=== PATIENT | male | born 1965 | race Caucasian/White ===

== ENCOUNTER 2016-08-23 10:06 | Emergency (ER) | payer OTHER ==
[2016-08-23 10:19] LABS: Glucose,Whole Blood 471 mg/dL (75-99)
[2016-08-23] MEDS ORDERED: SODIUM CHLORIDE 0.9% 1,000 ML IV STA (10:46)
[2016-08-23] MEDS ORDERED: INSULIN REGULAR 100 UNIT/ML VIAL IV ONE (10:46)
[2016-08-23] MEDS ORDERED: LABETALOL 5 MG/ML VIAL MDV IVP STA (10:47)
--- NOTE | 2016-08-23 10:55 | ED ---
General Adult HPI - General Chief complaint: Recheck/Abnormal Lab/Rx Stated complaint: Hyperglycemia Time Seen by Provider: 08/23/16 10:24 Source: patient, RN notes reviewed, old records reviewed Mode of arrival: ambulatory Limitations: no limitations - History of Present Illness Initial comments: This is a 51-year-old male ER for evaluation regarding elevated blood sugar. Patient admits to medical noncompliance states he has history of high blood pressure cholesterol and diabetes. Has not taken medication in quite some time. Patient admits alcohol abuse but also not had insurance not significantly physician. Patient denies symptoms, was told to come here for evaluation regarding another blood sugar, patient consented blood sugar was very elevated of the did check a before coming in. Again patient denies shortness of breath or chest pain or abdominal pain. Does have some increased urination and increased thirst - Related Data Previous Rx's Medication Instructions Recorded Lisinopril 20 mg PO DAILY #30 tablet 08/23/16 Metoprolol Tartrate [Lopressor] 50 mg PO BID #60 tab 08/23/16 metFORMIN HCL [Metformin HCl] 500 mg PO BID #60 tablet 08/23/16 Allergies Allergy/AdvReac Type Severity Reaction Status Date / Time amoxicillin Allergy Rash/Hives Verified 08/23/16 10:34 Review of Systems ROS Statement: Those systems with pertinent positive or pertinent negative responses have been documented in the HPI. ROS Other: All systems not noted in ROS Statement are negative. Past Medical History Past Medical History: Diabetes Mellitus, Hypertension History of Any Multi-Drug Resistant Organisms: None Reported Additional Past Surgical History / Comment(s): cataract surgery Past Psychological History: No Psychological Hx Reported, Anxiety, Depression Smoking Status: Never smoker Past Alcohol Use History: Abuse, Daily, Heavy Past Drug Use History: None Reported General Exam Limitations: no limitations General appearance: alert, in no apparent distress Head exam: Present: atraumatic, normocephalic, normal inspection Eye exam: Present: normal appearance, PERRL, EOMI. Absent: scleral icterus, conjunctival injection, periorbital swelling ENT exam: Present: normal exam, mucous membranes moist Neck exam: Present: normal inspection. Absent: tenderness, meningismus, lymphadenopathy Respiratory exam: Present: normal lung sounds bilaterally. Absent: respiratory distress, wheezes, rales, rhonchi, stridor Cardiovascular Exam: Present: regular rate, normal rhythm, normal heart sounds. Absent: systolic murmur, diastolic murmur, rubs, gallop, clicks GI/Abdominal exam: Present: soft, normal bowel sounds. Absent: distended, tenderness, guarding, rebound, rigid Extremities exam: Present: normal inspection, full ROM, normal capillary refill. Absent: tenderness, pedal edema, joint swelling, calf tenderness Back exam: Present: normal inspection Neurological exam: Present: alert, oriented X3, CN II-XII intact Psychiatric exam: Present: normal affect, normal mood Skin exam: Present: warm, dry, intact, normal color. Absent: rash Course Vital Signs 08/23/16 10:11 Temperature 99.2 F Pulse Rate 105 H Respiratory 20 Rate Blood Pressure 167/94 O2 Sat by Pulse 99 Oximetry - Reevaluation(s) Reevaluation #1: 08/23/16 10:54 Patient's remains asymptomatic Medical Decision Making - Medical Decision Making 51 mel[facility] ER with medical noncompliance history of alcohol abuse. Patient was in the air with elevated blood sugar. Patient's blood sugar and I will control, will start patient on outpatient medications regarding high blood pressure high cholesterol and diabetes. Patient will be encouraged to follow-up with family physician - Lab Data Lab Results 08/23/16 Range/Units 10:15 POC Glucose (mg/dL) 471 H (75-99) mg/dL POC Glu Load Mixer ID Veronica Hatch Disposition Clinical Impression: Medical non-compliance, Hyperglycemia, Hypertension, Alcohol abuse Disposition: ADMITTED IP TO THIS HOSP Condition: Undetermined Instructions: Abuse of Alcohol (ED), Hypertension (ED), Diabetic Hyperglycemia (ED) Prescriptions: Lisinopril 20 mg PO DAILY #30 tablet metFORMIN HCL [Metformin HCl] 500 mg PO BID #60 tablet Metoprolol Tartrate [Lopressor] 50 mg PO BID #60 tab Referrals: Arabella Owens MD [Primary Care Provider] - 1-2 days
[2016-08-23 11:01] LABS: Basophils % (A) 1 %; CH 33.2; CHCM 33.7; Eosinophils % (A) 0 %; HCT 47.8 % (39.0-53.0); HDW 2.75; HGB 15.3 gm/dL (13.0-17.5); Luc # (Auto) 0.17; Luc % (Auto) 3; Lymphocytes # (A) 1.4 k/uL (1.0-4.8); Lymphocytes % (A) 20 %; MCH 31.6 pg (25.0-35.0); MCV 98.8 fL (80.0-100.0); Mean Platelet Volume 7.1; Monocytes # (A) 0.5 k/uL (0-1.0); Monocytes % (A) 8 %; Neutrophils # (A) 4.8 k/uL (1.3-7.7); Neutrophils % (A) 69 %; RBC 4.83 m/uL (4.30-5.90); WBC 6.9 k/uL (3.8-10.6); WBC (Perox) 6.57
[2016-08-23 11:16] LABS: ALT 63 U/L (21-72); AST 111 U/L (17-59); Alkaline Phosphatase 182 U/L (38-126); Anion Gap 16 mmol/L; Blood Urea Nitrogen 8 mg/dL (9-20); Calcium 9.8 mg/dL (8.4-10.2); Carbon Dioxide 27 mmol/L (22-30); Chloride 92 mmol/L (98-107); Magnesium 1.8 mg/dL (1.6-2.3); Non-African American GFR(MDRD) >60 (>60 ml/min/1.73 sqM); Potassium 5.1 mmol/L (3.5-5.1); Sodium 135 mmol/L (137-145); Total Bilirubin 2.1 mg/dL (0.2-1.3); Total Protein 8.1 g/dL (6.3-8.2)
[2016-08-23 11:28] LABS: Glucose 491 mg/dL (74-99)
[2016-08-23 11:34] LABS: Glucose,Whole Blood 399 mg/dL (75-99)
[2016-08-23] MEDS ORDERED: INSULIN REGULAR 100 UNIT/ML VIAL SQ ONE (12:02)
[2016-08-23 13:20] VITALS: BP 193/91; PULSE 83; RESP 16; TEMP 98.5
[2016-08-24 05:47] LABS: Glucose,Whole Blood 304 mg/dL (75-99)
== END 2016-08-23 13:20 | disposition other institution (70) ==
LOC: EC 10:06
DX: E11.65 Type 2 diabetes mellitus with hyperglycemia (principal); E78.00 Pure hypercholesterolemia, unspecified; I10 Essential (primary) hypertension; F10.10 Alcohol abuse, uncomplicated; Z91.19 Patient's noncompliance with other medical treatment and regimen; Z88.0 Allergy status to penicillin
CPT/HCPCS: 36415; 80053; 83735; 84100; 85025; 96361; 96374; 99285

== ENCOUNTER 2016-11-20 19:13 | Emergency (ER) | payer OTHER ==
[2016-11-20] MEDS ORDERED: SODIUM CHLORIDE 0.9% 2,000 ML IV ONE (19:47)
[2016-11-20 19:51] LABS: Glucose,Whole Blood 354 mg/dL (75-99)
[2016-11-20 20:35] LABS: ALT 87 U/L (21-72); AST 176 U/L (17-59); Alkaline Phosphatase 137 U/L (38-126); Anion Gap 10 mmol/L; Blood Urea Nitrogen 13 mg/dL (9-20); Calcium 9.7 mg/dL (8.4-10.2); Carbon Dioxide 26 mmol/L (22-30); Chloride 97 mmol/L (98-107); Glucose 418 mg/dL (74-99); Magnesium 1.7 mg/dL (1.6-2.3); Non-African American GFR(MDRD) >60 (>60 ml/min/1.73 sqM); Potassium 4.3 mmol/L (3.5-5.1); Sodium 133 mmol/L (137-145); Total Bilirubin 0.9 mg/dL (0.2-1.3); Total Protein 7.9 g/dL (6.3-8.2)
--- NOTE | 2016-11-20 20:37 | XR ---
EXAMINATION TYPE: XR chest 2V DATE OF EXAM: 11/20/2016 COMPARISON: NONE HISTORY: Shortness of breath. TECHNIQUE: Frontal and lateral views of the chest are obtained. FINDINGS: There is no focal air space opacity, pleural effusion, or pneumothorax seen. The cardiac silhouette size is within normal limits. The osseous structures are intact. IMPRESSION: No acute cardiopulmonary process.
[2016-11-20 20:38] LABS: Basophils % (A) 0 %; CH 31.6; CHCM 35.4; Eosinophils # (A) 0.1 k/uL (0-0.7); Eosinophils % (A) 1 %; HCT 42.8 % (39.0-53.0); HDW 2.94; HGB 15.2 gm/dL (13.0-17.5); Luc % (Auto) 2; Lymphocytes # (A) 1.1 k/uL (1.0-4.8); Lymphocytes % (A) 23 %; MCH 31.8 pg (25.0-35.0); MCHC 35.5 g/dL (31.0-37.0); MCV 89.6 fL (80.0-100.0); Mean Platelet Volume 7.1; Monocytes # (A) 0.4 k/uL (0-1.0); Monocytes % (A) 9 %; Neutrophils # (A) 3.3 k/uL (1.3-7.7); Neutrophils % (A) 65 %; RBC 4.78 m/uL (4.30-5.90); RDW 13.5 % (11.5-15.5); WBC (Perox) 4.69
[2016-11-20] MEDS ORDERED: INSULIN REGULAR 100 UNIT/ML VIAL IV ONE (20:38)
--- NOTE | 2016-11-20 20:45 | ED ---
General Adult HPI - General Chief complaint: Recheck/Abnormal Lab/Rx Stated complaint: high blood sugar Time Seen by Provider: 11/20/16 19:35 Source: patient, RN notes reviewed Mode of arrival: ambulatory Limitations: no limitations - History of Present Illness Initial comments: This a 51-year-old male presents emergency Department chief complaint hyperglycemia. Patient states that his blood sugar has been in the 5 to 600s all week. Patient states that he stopped his medications last week because he was having diarrhea from his metformin. Patient states that he started checking his blood sugar and noticed his blood sugar was elevated again. Patient follow-up was primary care physician who increase his Amaryl dose Topamax 3 times a day. Patient states that his blood sugar was still elevated on this. Patient states that he fell off today states he felt fatigued and has had increased thirst and urinating more often. Patient denies any chest pain or shortness of breath. Patient has a fever, chills. He states that the diarrhea has stopped from his metformin. - Related Data Home Medications Medication Instructions Recorded Confirmed Albuterol Inhaler [Ventolin Hfa 1 - 2 puff INHALATION RT-Q6H PRN 11/20/16 Inhaler] Glimepiride [Amaryl] 4 mg PO DAILY 11/20/16 11/20/16 Lisinopril 20 mg PO HS 11/20/16 11/20/16 Previous Rx's Medication Instructions Recorded Metoprolol Tartrate [Lopressor] 50 mg PO BID #60 tab 08/23/16 Allergies Allergy/AdvReac Type Severity Reaction Status Date / Time amoxicillin Allergy Rash/Hives Verified 11/20/16 20:01 Review of Systems ROS Statement: Those systems with pertinent positive or pertinent negative responses have been documented in the HPI. ROS Other: All systems not noted in ROS Statement are negative. Past Medical History Past Medical History: Diabetes Mellitus, Hypertension History of Any Multi-Drug Resistant Organisms: None Reported Additional Past Surgical History / Comment(s): cataract surgery Past Psychological History: Anxiety, Depression Smoking Status: Never smoker Past Alcohol Use History: Abuse, Daily, Heavy Past Drug Use History: None Reported General Exam Limitations: no limitations General appearance: alert, in no apparent distress Head exam: Present: atraumatic, normocephalic, normal inspection Eye exam: Present: normal appearance, PERRL, EOMI. Absent: scleral icterus, conjunctival injection, periorbital swelling ENT exam: Present: normal oropharynx, mucous membranes moist, TM's normal bilaterally, normal external ear exam Neck exam: Present: normal inspection, full ROM. Absent: tenderness, meningismus, lymphadenopathy Respiratory exam: Present: normal lung sounds bilaterally. Absent: respiratory distress, wheezes, rales, rhonchi, stridor Cardiovascular Exam: Present: normal rhythm, tachycardia, normal heart sounds. Absent: systolic murmur, diastolic murmur, rubs, gallop, clicks GI/Abdominal exam: Present: soft, normal bowel sounds. Absent: distended, tenderness, guarding, rebound, rigid Neurological exam: Present: alert, oriented X3, CN II-XII intact Skin exam: Present: warm, dry, intact, normal color. Absent: rash Course Vital Signs 11/20/16 11/20/16 11/20/16 19:27 19:40 20:14 Temperature 98.6 F 98.6 F 98.6 F Pulse Rate 111 H 105 H 98 Respiratory 20 18 18 Rate Blood Pressure 147/83 147/77 155/81 O2 Sat by Pulse 99 94 L 97 Oximetry Medical Decision Making - Medical Decision Making 51-year-old male presented for hyperglycemia. Patient's blood sugar was elevated but he is not in DKA. Patient's is an alcoholic and his LFTs are mildly elevated. Patient is advised to stop drinking alcohol. Patient will follow-up was primary care physician for adjustment of his medication. Patient was hydrated and given insulin here in emergency department. - Lab Data Result diagrams: 11/20/16 20:10 11/20/16 20:10 Lab Results 11/20/16 11/20/16 11/20/16 Range/Units 19:47 20:10 20:10 WBC 5.0 (3.8-10.6) k/uL RBC 4.78 (4.30-5.90) m/uL Hgb 15.2 (13.0-17.5) gm/dL Hct 42.8 (39.0-53.0) % MCV 89.6 (80.0-100.0) fL MCH 31.8 (25.0-35.0) pg MCHC 35.5 (31.0-37.0) g/dL RDW 13.5 (11.5-15.5) % Plt Count 138 L (150-450) k/uL Neutrophils % 65 % Lymphocytes % 23 % Monocytes % 9 % Eosinophils % 1 % Basophils % 0 % Neutrophils # 3.3 (1.3-7.7) k/uL Lymphocytes # 1.1 (1.0-4.8) k/uL Monocytes # 0.4 (0-1.0) k/uL Eosinophils # 0.1 (0-0.7) k/uL Basophils # 0.0 (0-0.2) k/uL Sodium 133 L (137-145) mmol/L Potassium 4.3 (3.5-5.1) mmol/L Chloride 97 L (98-107) mmol/L Carbon Dioxide 26 (22-30) mmol/L Anion Gap 10 mmol/L BUN 13 (9-20) mg/dL Creatinine 0.90 (0.66-1.25) mg/dL Est GFR (MDRD) Af Amer >60 (>60 ml/min/1.73 sqM) Est GFR (MDRD) Non-Af >60 (>60 ml/min/1.73 sqM) Glucose 418 H (74-99) mg/dL POC Glucose (mg/dL) 354 H (75-99) mg/dL POC Glu Carpet Inspector Finished ID Franco Dumont Calcium 9.7 (8.4-10.2) mg/dL Magnesium 1.7 (1.6-2.3) mg/dL Total Bilirubin 0.9 (0.2-1.3) mg/dL AST 176 H (17-59) U/L ALT 87 H (21-72) U/L Alkaline Phosphatase 137 H (38-126) U/L Total Protein 7.9 (6.3-8.2) g/dL Albumin 4.2 (3.5-5.0) g/dL Acetone, Qual Negative (Negative) Disposition Clinical Impression: Hyperglycemia Disposition: HOME SELF-CARE Condition: Stable Instructions: Diabetic Hyperglycemia (ED) Additional Instructions: Please follow up with her PCP for does not diabetic medications.Please return to the Emergency Department if symptoms worsen or any other concerns. Referrals: Arabella Owens MD [Primary Care Provider] - 1-2 days Time of Disposition: 21:25
[2016-11-20 21:25] LABS: Glucose,Whole Blood 399 mg/dL (75-99)
[2016-11-20 22:04] VITALS: BP 125/64; PULSE 68; RESP 16; TEMP 97.8
[2016-11-20 22:07] LABS: Glucose,Whole Blood 280 mg/dL (75-99)
== END 2016-11-20 22:03 | disposition home or self-care (01) ==
LOC: EC 19:13
DX: E11.65 Type 2 diabetes mellitus with hyperglycemia (principal); I10 Essential (primary) hypertension; Z88.0 Allergy status to penicillin; Z79.84 Long term (current) use of oral hypoglycemic drugs; Z79.899 Other long term (current) drug therapy
CPT/HCPCS: 36415; 71020; 80053; 82009; 83735; 85025; 96360; 96361; 99285

== ENCOUNTER → 2017-08-07 | Outpatient (CLI) | payer OTHER ==
--- NOTE | 2017-08-07 15:55 | XR ---
EXAMINATION TYPE: XR chest 2V DATE OF EXAM: 08/07/2017 COMPARISON: 11/20/2016 HISTORY: Cough TECHNIQUE: Frontal and lateral views of the chest are obtained. FINDINGS: There is no focal air space opacity, pleural effusion, or pneumothorax seen. The cardiac silhouette size is within normal limits. The osseous structures are intact. Is multilevel moderate degenerative changes of the thoracic spine and acromio clavicular joints are noted. Right midlung pat karime opacity is similar to 11/20/2016 and likely represents chronic atelectasis and/or scarring. IMPRESSION: No acute cardiopulmonary process.
== END | disposition home or self-care (01) ==
LOC: RADXRMAIN 15:26
PROVIDERS: ATTEND Internal Medicine
DX: R05 Cough (principal); I10 Essential (primary) hypertension
CPT/HCPCS: 71046

== ENCOUNTER 2017-08-14 16:26 | Emergency (ER) | payer OTHER ==
[2017-08-14 16:34] VITALS: RESP 18
[2017-08-14 16:57] LABS: Glucose,Whole Blood 494 mg/dL (75-99)
[2017-08-14] MEDS ORDERED: SODIUM CHLORIDE 0.9% 1,000 ML with MVI, ADULT NO.4 WITH VIT K 10 ML, THIAMINE 100 MG, F... IV ONE ×4 (16:57)
--- NOTE | 2017-08-14 17:03 | ED ---
General Adult HPI - General Chief complaint: Recheck/Abnormal Lab/Rx Stated complaint: High sugar Time Seen by Provider: 08/14/17 16:30 Source: patient, RN notes reviewed Mode of arrival: wheelchair Limitations: no limitations - History of Present Illness Initial comments: Is a 52-year-old male who presents to the emergency department complaining of not feeling well. Patient is very nonspecific. Patient noted her sugar to be elevated so he came to the emergency department. Patient states overall he feels weak. Patient also states he is alcoholic and drinks daily. Patient states he has had a few beers today. Mother went to pick him up for an appointment and he wasn't ready and he seemed as though he was significantly drunk so mom wanted to come to the emergency department. Patient states he is feeling hopeless but not suicidal. Patient states she's never thought of suicide and has never had any psychiatric history. Patient states he's had no chest pain no difficulty breathing or shortness of breath. Patient denies any cough. Patient denies headache patient denies numbness weakness. Patient denies any lightheadedness or dizziness. Patient denies abdominal pain patient denies nausea vomiting diarrhea. Patient's main complaint is he just doesn't feel well and overall feels weak. Patient states she doesn't eat much. He does drink daily - Related Data Home Medications Medication Instructions Recorded Confirmed Albuterol Inhaler [Ventolin Hfa 1 - 2 puff INHALATION RT-Q6H PRN 11/20/16 Inhaler] Omeprazole [PriLOSEC] 20 mg PO BID 08/14/17 08/14/17 Allergies Allergy/AdvReac Type Severity Reaction Status Date / Time amoxicillin Allergy Rash/Hives Verified 08/14/17 16:51 Review of Systems ROS Statement: Those systems with pertinent positive or pertinent negative responses have been documented in the HPI. ROS Other: All systems not noted in ROS Statement are negative. Past Medical History Past Medical History: Diabetes Mellitus, Hypertension Additional Past Medical History / Comment(s): etoh abuse History of Any Multi-Drug Resistant Organisms: None Reported Past Surgical History: Hernia Repair Additional Past Surgical History / Comment(s): cataract surgery Past Psychological History: Anxiety, Depression Smoking Status: Never smoker Past Alcohol Use History: Abuse, Daily, Heavy Past Drug Use History: None Reported General Exam - General Exam Comments Initial Comments: GENERAL: Patient is well-developed and well-nourished. Patient is nontoxic and well- hydrated and is in mild distress. ENT: Neck is soft and supple. No significant lymphadenopathy is noted. Oropharynx is clear. Moist mucous membranes. Neck has full range of motion without eliciting any pain. EYES: The sclera were anicteric and conjunctiva were pink and moist. Extraocular movements were intact and pupils were equal round and reactive to light. Eyelids were unremarkable. PULMONARY: Unlabored respirations. Good breath sounds bilaterally. No audible rales rhonchi or wheezing was noted. CARDIOVASCULAR: There is a regular rate and rhythm without any murmurs gallops or rubs. ABDOMEN: Soft and nontender with normal bowel sounds. No palpable organomegaly was noted. There is no palpable pulsatile mass. SKIN: Skin is clear with no lesions or rashes and otherwise unremarkable. NEUROLOGIC: Patient is alert and oriented x3. Cranial nerves II through XII are grossly intact. Motor and sensory are also intact. Normal speech, volume and content. Symmetrical smile. MUSCULOSKELETAL: Normal extremities with adequate strength and full range of motion. No lower extremity swelling or edema. No calf tenderness. LYMPHATICS: No significant lymphadenopathy is noted PSYCHIATRIC: Normal psychiatric evaluation. Normal interpersonal interactions appears functionally intact in deals appropriately with others. No signs of depression. No signs of anxiety. Limitations: no limitations Course Vital Signs 08/14/17 08/14/17 08/14/17 16:28 18:55 19:02 Temperature 97.8 F Pulse Rate 99 86 Respiratory 18 18 Rate Blood Pressure 197/106 201/92 195/94 O2 Sat by Pulse 100 100 Oximetry Medical Decision Making - Medical Decision Making EKG shows a normal sinus rhythm at 94 bpm RI interval 160 QRS is 88 QT interval 394 QTC is 492. There is no ST segment elevation Chest x-ray shows no acute normalities. Patient was given Humalog and bolus of fluid. Patient stated he was not to stay overnight even though I recommended. Patient states he is willing to sign out AMA. Patient had a sugar in the high 300s his blood pressure still 180 systolic but he refused to stay and signed out AMA - Lab Data Result diagrams: 08/14/17 17:02 08/14/17 17:02 Lab Results 08/14/17 08/14/17 08/14/17 Range/Units 16:45 17:02 17:02 WBC (3.8-10.6) k/uL RBC (4.30-5.90) m/uL Hgb (13.0-17.5) gm/dL Hct (39.0-53.0) % MCV (80.0-100.0) fL MCH (25.0-35.0) pg MCHC (31.0-37.0) g/dL RDW (11.5-15.5) % Plt Count (150-450) k/uL Neutrophils % % Lymphocytes % % Monocytes % % Eosinophils % % Basophils % % Neutrophils # (1.3-7.7) k/uL Lymphocytes # (1.0-4.8) k/uL Monocytes # (0-1.0) k/uL Eosinophils # (0-0.7) k/uL Basophils # (0-0.2) k/uL Sodium 135 L (137-145) mmol/L Potassium 3.9 (3.5-5.1) mmol/L Chloride 89 L (98-107) mmol/L Carbon Dioxide 26 (22-30) mmol/L Anion Gap 20 mmol/L BUN 7 L (9-20) mg/dL Creatinine 0.75 (0.66-1.25) mg/dL Est GFR (CKD-EPI)AfAm >90 (>60 ml/min/1.73 sqM) Est GFR (CKD-EPI)NonAf >90 (>60 ml/min/1.73 sqM) Glucose 590 H* (74-99) mg/dL POC Glucose (mg/dL) 494 H (75-99) mg/dL POC Glu Physical Medicine Specialist ID Dallas Molina Calcium 9.5 (8.4-10.2) mg/dL Magnesium 1.7 (1.6-2.3) mg/dL Total Bilirubin 0.6 (0.2-1.3) mg/dL AST 43 (17-59) U/L ALT 39 (21-72) U/L Alkaline Phosphatase 115 (38-126) U/L Ammonia <9 (<30) umol/L Troponin I (0.000-0.034) ng/mL Total Protein 7.7 (6.3-8.2) g/dL Albumin 4.5 (3.5-5.0) g/dL Acetone, Qual Negative (Negative) 08/14/17 08/14/17 08/14/17 Range/Units 17:02 17:02 18:40 WBC 5.1 (3.8-10.6) k/uL RBC 5.31 (4.30-5.90) m/uL Hgb 15.9 (13.0-17.5) gm/dL Hct 46.6 (39.0-53.0) % MCV 87.8 (80.0-100.0) fL MCH 30.0 (25.0-35.0) pg MCHC 34.1 (31.0-37.0) g/dL RDW 13.7 (11.5-15.5) % Plt Count 111 L (150-450) k/uL Neutrophils % 58 % Lymphocytes % 32 % Monocytes % 6 % Eosinophils % 1 % Basophils % 1 % Neutrophils # 3.0 (1.3-7.7) k/uL Lymphocytes # 1.6 (1.0-4.8) k/uL Monocytes # 0.3 (0-1.0) k/uL Eosinophils # 0.1 (0-0.7) k/uL Basophils # 0.0 (0-0.2) k/uL Sodium (137-145) mmol/L Potassium (3.5-5.1) mmol/L Chloride (98-107) mmol/L Carbon Dioxide (22-30) mmol/L Anion Gap mmol/L BUN (9-20) mg/dL Creatinine (0.66-1.25) mg/dL Est GFR (CKD-EPI)AfAm (>60 ml/min/1.73 sqM) Est GFR (CKD-EPI)NonAf (>60 ml/min/1.73 sqM) Glucose (74-99) mg/dL POC Glucose (mg/dL) 417 H (75-99) mg/dL POC Glu Physical Medicine Specialist ID Rubén Tobin Calcium (8.4-10.2) mg/dL Magnesium (1.6-2.3) mg/dL Total Bilirubin (0.2-1.3) mg/dL AST (17-59) U/L ALT (21-72) U/L Alkaline Phosphatase (38-126) U/L Ammonia (<30) umol/L Troponin I 0.017 (0.000-0.034) ng/mL Total Protein (6.3-8.2) g/dL Albumin (3.5-5.0) g/dL Acetone, Qual (Negative) Disposition Clinical Impression: Hyperglycemia, Alcohol abuse, Hypertension Disposition: Left Against Medical Advice Referrals: Arabella Owens MD [Primary Care Provider] - 1-2 days Time of Disposition: 19:27
[2017-08-14 17:26] LABS: Basophils % (A) 1 %; Eosinophils # (A) 0.1 k/uL (0-0.7); Eosinophils % (A) 1 %; HCT 46.6 % (39.0-53.0); HGB 15.9 gm/dL (13.0-17.5); Lymphocytes # (A) 1.6 k/uL (1.0-4.8); Lymphocytes % (A) 32 %; MCHC 34.1 g/dL (31.0-37.0); MCV 87.8 fL (80.0-100.0); Mean Platelet Volume 7.3; Monocytes # (A) 0.3 k/uL (0-1.0); Monocytes % (A) 6 %; Neutrophils % (A) 58 %; Platelet Count 111 k/uL (150-450); RBC 5.31 m/uL (4.30-5.90); RDW 13.7 % (11.5-15.5); WBC 5.1 k/uL (3.8-10.6)
[2017-08-14 17:46] LABS: ALT 39 U/L (21-72); AST 43 U/L (17-59); Albumin 4.5 g/dL (3.5-5.0); Alkaline Phosphatase 115 U/L (38-126); Anion Gap 20 mmol/L; Blood Urea Nitrogen 7 mg/dL (9-20); Calcium 9.5 mg/dL (8.4-10.2); Carbon Dioxide 26 mmol/L (22-30); Chloride 89 mmol/L (98-107); Magnesium 1.7 mg/dL (1.6-2.3); Potassium 3.9 mmol/L (3.5-5.1); Sodium 135 mmol/L (137-145); Total Bilirubin 0.6 mg/dL (0.2-1.3); Total Protein 7.7 g/dL (6.3-8.2)
[2017-08-14 17:48] LABS: Glucose 590 mg/dL (74-99)
--- NOTE | 2017-08-14 17:48 | XR ---
EXAMINATION TYPE: XR chest 2V DATE OF EXAM: 08/14/2017 COMPARISON: 08/07/2017 HISTORY: Weakness TECHNIQUE: Frontal and lateral views of the chest are obtained. FINDINGS: Heart and mediastinum are normal. Lungs are clear. Diaphragm is normal. Bony thorax appear s normal. IMPRESSION: Normal chest. No change.
[2017-08-14] MEDS ORDERED: INSULIN REGULAR 100 UNIT in SODIUM CHLORIDE 0.9% 100 ML IV ONE (17:49)
[2017-08-14] MEDS ORDERED: INSULIN REGULAR 100 UNIT/ML VIAL IV ONE (17:49)
[2017-08-14] MEDS ORDERED: INSULIN ASPART 100 UNIT/ML 1 ML 10 ML VIAL SQ ONE (17:51)
[2017-08-14] MEDS ORDERED: SODIUM CHLORIDE 0.9% 1,000 ML IV ONE (17:51)
[2017-08-14 18:43] LABS: Glucose,Whole Blood 417 mg/dL (75-99)
[2017-08-14] MEDS ORDERED: hydrALAZINE HCL 20 MG/ML 1 ML VIAL IVP STA (18:57)
[2017-08-14 19:28] LABS: Glucose,Whole Blood 362 mg/dL (75-99)
[2017-08-14 19:32] VITALS: BP 180/86; PULSE 799; TEMP 98
== END 2017-08-14 19:32 | disposition left against medical advice (07) ==
LOC: EC 16:26
DX: E11.65 Type 2 diabetes mellitus with hyperglycemia (principal); F10.10 Alcohol abuse, uncomplicated; I10 Essential (primary) hypertension; Z79.899 Other long term (current) drug therapy; Z88.0 Allergy status to penicillin
CPT/HCPCS: 36415; 93005; 80053; 82140; 82009; 83735; 84484; 85025; 71046; 99285; 96365; 96366; 96375; J0360; J3411

== ENCOUNTER 2017-12-08 07:02 | Observation (INO) | payer OTHER ==
[2017-12-08] MEDS ORDERED: IPRATROPIUM-ALBUTEROL 3 ML NEB INHALATION STA (07:16)
[2017-12-08] MEDS ORDERED: SODIUM CHLORIDE 0.9% 1,000 ML IV STA ×2 (07:16→09:51)
--- NOTE | 2017-12-08 07:19 | ED ---
SOB HPI - General Chief Complaint: Shortness of Breath Stated Complaint: ISAI Time Seen by Provider: 12/08/17 07:02 Source: patient, EMS Mode of arrival: EMS Limitations: no limitations - History of Present Illness Initial Comments: Male with a history of recently diagnosed lung mass in the right upper lobe also COPD/emphysema also has a chronic alcoholic with his last beer being at about 4 AM who states he had hemoptysis about 1 hour prior to arrival. He states he had a lot of it and she came out of his nose. He denies any overt nosebleed. He denies any fevers chills nausea vomiting sweats he has had shortness of breath. Some mild anterior chest wall pain from the cough. No abdominal pain nausea vomiting or diarrhea. MD Complaint: shortness of breath, cough - Related Data Home Medications Medication Instructions Recorded Confirmed Albuterol Inhaler [Ventolin Hfa 1 - 2 puff INHALATION RT-Q6H PRN 11/20/16 Inhaler] Acetaminophen [Tylenol] 500 mg PO Q4-6H PRN 12/08/17 12/08/17 Carboxymethylcellulose Sodium 1 drop BOTH EYES DAILY 12/08/17 12/08/17 [Refresh Tears] Insulin Glargine,Hum.rec.anlog 35 unit SQ DAILY 12/08/17 12/08/17 [Lantus Solostar] Ipratropium [place] [Atrovent Hfa] 2 puff INHALATION RT-QID 12/08/17 12/08/17 Lisinopril [Prinivil] 5 mg PO HS 12/08/17 12/08/17 Melatonin 10 mg PO HS 12/08/17 12/08/17 Pioglitazone HCl [Actos] 30 mg PO DAILY 12/08/17 12/08/17 Allergies Allergy/AdvReac Type Severity Reaction Status Date / Time amoxicillin Allergy Rash/Hives Verified 12/08/17 08:36 Review of Systems ROS Statement: Those systems with pertinent positive or pertinent negative responses have been documented in the HPI. ROS Other: All systems not noted in ROS Statement are negative. Past Medical History Past Medical History: Cancer, Diabetes Mellitus, Hypertension Additional Past Medical History / Comment(s): etoh abuse, right sided lung cancer History of Any Multi-Drug Resistant Organisms: None Reported Past Surgical History: Hernia Repair Additional Past Surgical History / Comment(s): cataract surgery Past Psychological History: Anxiety, Depression Smoking Status: Never smoker Past Alcohol Use History: Abuse, Daily, Heavy Past Drug Use History: None Reported General Exam - General Exam Comments Initial Comments: This is a well-developed well-nourished awake alert oriented 3 male Limitations: no limitations General appearance: alert, in no apparent distress Head exam: Present: atraumatic, normocephalic, normal inspection Eye exam: Present: normal appearance, PERRL, EOMI. Absent: scleral icterus, conjunctival injection, periorbital swelling ENT exam: Present: mucous membranes moist, other (Dry blood noticed in the naris at this time the posterior pharynx is clear) Neck exam: Present: normal inspection. Absent: tenderness, meningismus, lymphadenopathy Respiratory exam: Present: normal lung sounds bilaterally, chest wall tenderness (Mild tenderness to the anterior chest wall over the costal sternal margins no step-off or crepitation). Absent: respiratory distress, wheezes, rales, rhonchi, stridor Cardiovascular Exam: Present: normal rhythm, tachycardia, normal heart sounds. Absent: systolic murmur, diastolic murmur, rubs, gallop, clicks GI/Abdominal exam: Present: soft, normal bowel sounds. Absent: distended, tenderness, guarding, rebound, rigid Extremities exam: Present: normal inspection, full ROM, normal capillary refill. Absent: tenderness, pedal edema, joint swelling, calf tenderness Back exam: Present: normal inspection Neurological exam: Present: alert, oriented X3, CN II-XII intact Psychiatric exam: Present: normal affect, normal mood Skin exam: Present: warm, dry, intact, normal color. Absent: rash Course Vital Signs 12/08/17 12/08/17 12/08/17 07:03 07:12 07:37 Temperature 98.2 F Pulse Rate 108 H 93 Respiratory 16 Rate Blood Pressure 198/100 O2 Sat by Pulse 95 97 Oximetry 12/08/17 12/08/17 07:47 09:19 Temperature Pulse Rate 94 98 Respiratory 18 Rate Blood Pressure 165/84 O2 Sat by Pulse 100 Oximetry - Reevaluation(s) Reevaluation #1: 12/08/17 09:41 I did reevaluate the patient he states is breathing better he still has markedly diminished breath sounds in the left base however. Reevaluation #2: 12/08/17 09:41 I did discuss the case with Dr. Flores. Patient will be admitted noncontrast CT the chest will be done IV steroids continued updrafts. Reevaluation #3: 12/08/17 09:56 I did discuss the patient's consumption of alcohol does not believe he will go through withdrawals and does not at this time require any treatment for withdrawals. Medical Decision Making - Lab Data Result diagrams: 12/08/17 07:12 12/08/17 07:12 Lab Results 12/08/17 12/08/17 12/08/17 Range/Units 07:12 07:12 07:12 WBC 3.3 L (3.8-10.6) k/uL RBC 4.37 (4.30-5.90) m/uL Hgb 13.2 (13.0-17.5) gm/dL Hct 40.0 (39.0-53.0) % MCV 91.5 (80.0-100.0) fL MCH 30.1 (25.0-35.0) pg MCHC 32.9 (31.0-37.0) g/dL RDW 15.8 H (11.5-15.5) % Plt Count 131 L (150-450) k/uL Neutrophils % 61 % Lymphocytes % 25 % Monocytes % 7 % Eosinophils % 4 % Basophils % 1 % Neutrophils # 2.0 (1.3-7.7) k/uL Lymphocytes # 0.8 L (1.0-4.8) k/uL Monocytes # 0.2 (0-1.0) k/uL Eosinophils # 0.1 (0-0.7) k/uL Basophils # 0.0 (0-0.2) k/uL PT (9.0-12.0) sec INR (<1.2) APTT (22.0-30.0) sec Sodium 140 (137-145) mmol/L Potassium 3.4 L (3.5-5.1) mmol/L Chloride 102 (98-107) mmol/L Carbon Dioxide 24 (22-30) mmol/L Anion Gap 14 mmol/L BUN 7 L (9-20) mg/dL Creatinine 0.60 L (0.66-1.25) mg/dL Est GFR (CKD-EPI)AfAm >90 (>60 ml/min/1.73 sqM) Est GFR (CKD-EPI)NonAf >90 (>60 ml/min/1.73 sqM) Glucose 176 H (74-99) mg/dL Calcium 9.5 (8.4-10.2) mg/dL Magnesium 1.3 L (1.6-2.3) mg/dL Total Bilirubin 0.5 (0.2-1.3) mg/dL AST 44 (17-59) U/L ALT 19 L (21-72) U/L Alkaline Phosphatase 101 (38-126) U/L Total Creatine Kinase 87 (55-170) U/L CK-MB (CK-2) 3.6 H (0.0-2.4) ng/mL CK-MB (CK-2) Rel Index 4.1 Troponin I 0.019 (0.000-0.034) ng/mL NT-Pro-B Natriuret Pep pg/mL Total Protein 7.7 (6.3-8.2) g/dL Albumin 3.9 (3.5-5.0) g/dL Serum Alcohol 27 mg/dL 12/08/17 12/08/17 Range/Units 07:12 07:12 WBC (3.8-10.6) k/uL RBC (4.30-5.90) m/uL Hgb (13.0-17.5) gm/dL Hct (39.0-53.0) % MCV (80.0-100.0) fL MCH (25.0-35.0) pg MCHC (31.0-37.0) g/dL RDW (11.5-15.5) % Plt Count (150-450) k/uL Neutrophils % % Lymphocytes % % Monocytes % % Eosinophils % % Basophils % % Neutrophils # (1.3-7.7) k/uL Lymphocytes # (1.0-4.8) k/uL Monocytes # (0-1.0) k/uL Eosinophils # (0-0.7) k/uL Basophils # (0-0.2) k/uL PT 10.5 (9.0-12.0) sec INR 1.1 (<1.2) APTT 23.5 (22.0-30.0) sec Sodium (137-145) mmol/L Potassium (3.5-5.1) mmol/L Chloride (98-107) mmol/L Carbon Dioxide (22-30) mmol/L Anion Gap mmol/L BUN (9-20) mg/dL Creatinine (0.66-1.25) mg/dL Est GFR (CKD-EPI)AfAm (>60 ml/min/1.73 sqM) Est GFR (CKD-EPI)NonAf (>60 ml/min/1.73 sqM) Glucose (74-99) mg/dL Calcium (8.4-10.2) mg/dL Magnesium (1.6-2.3) mg/dL Total Bilirubin (0.2-1.3) mg/dL AST (17-59) U/L ALT (21-72) U/L Alkaline Phosphatase (38-126) U/L Total Creatine Kinase (55-170) U/L CK-MB (CK-2) (0.0-2.4) ng/mL CK-MB (CK-2) Rel Index Troponin I (0.000-0.034) ng/mL NT-Pro-B Natriuret Pep 700 pg/mL Total Protein (6.3-8.2) g/dL Albumin (3.5-5.0) g/dL Serum Alcohol mg/dL Critical Care Time Critical Care Time: Yes Critical Care Time: 31 minutes of critical care time which includes initial monitoring the EMS run and discussed with paramedics history physical labs x-rays reevaluation patient responsive therapy discuss with the patient family and several occasions discussion with Dr. Flores discussion with the admitting physician admission orders and documentation of the above Disposition Clinical Impression: Acute exacerbation of chronic obstructive airways disease, Hemoptysis, Lung mass, Hypomagnesemia, Hypokalemia Disposition: ADMITTED IP TO THIS [facility] Condition: Serious Referrals: Arabella Owens MD [Primary Care Provider] - 1-2 days
[2017-12-08 07:39] LABS: Basophils % (A) 1 %; Eosinophils # (A) 0.1 k/uL (0-0.7); Eosinophils % (A) 4 %; HGB 13.2 gm/dL (13.0-17.5); Lymphocytes # (A) 0.8 k/uL (1.0-4.8); Lymphocytes % (A) 25 %; MCH 30.1 pg (25.0-35.0); MCHC 32.9 g/dL (31.0-37.0); MCV 91.5 fL (80.0-100.0); Mean Platelet Volume 7.2; Monocytes # (A) 0.2 k/uL (0-1.0); Monocytes % (A) 7 %; Neutrophils % (A) 61 %; Platelet Count 131 k/uL (150-450); RBC 4.37 m/uL (4.30-5.90); RDW 15.8 % (11.5-15.5); WBC 3.3 k/uL (3.8-10.6)
[2017-12-08 07:50] LABS: ALT 19 U/L (21-72); AST 44 U/L (17-59); Albumin 3.9 g/dL (3.5-5.0); Alcohol 27 mg/dL; Alkaline Phosphatase 101 U/L (38-126); Anion Gap 14 mmol/L; Blood Urea Nitrogen 7 mg/dL (9-20); Calcium 9.5 mg/dL (8.4-10.2); Carbon Dioxide 24 mmol/L (22-30); Chloride 102 mmol/L (98-107); Glucose 176 mg/dL (74-99); Magnesium 1.3 mg/dL (1.6-2.3); Potassium 3.4 mmol/L (3.5-5.1); Sodium 140 mmol/L (137-145); Total Bilirubin 0.5 mg/dL (0.2-1.3); Total Protein 7.7 g/dL (6.3-8.2)
[2017-12-08 07:51] LABS: INR 1.1 (<1.2); Partial Thromboplastin Time 23.5 sec (22.0-30.0); Prothrombin Time 10.5 sec (9.0-12.0)
[2017-12-08 08:17] LABS: Creatine Kinase MB 3.6 ng/mL (0.0-2.4); Troponin I 0.019 ng/mL (0.000-0.034)
--- NOTE | 2017-12-08 08:30 | XR ---
EXAMINATION TYPE: XR chest 2V DATE OF EXAM: 12/08/2017 COMPARISON: 11/20/2016 and 08/14/2017 HISTORY: Known lung cancer. Hemoptysis. TECHNIQUE: Frontal and lateral views of the chest are obtained. FINDINGS: Again there is a right midlung patchy opacity similar dating back to exams of 11/20/2016 e favored to represent chronic atelectasis and/or scarring. New opacity is seen within the lingula. Thi s could represent the patient's primary lung carcinoma or new developing pneumonia. A component of at electasis is also presumed as there is elevation of the left hemidiaphragm. The cardiac silhouette si ze is within normal limits. The osseous structures are intact. IMPRESSION: 1. New lingular opacity that may represent pneumonia or the patient's primary lung carcinoma. Compone nt of atelectasis is seen as there is secondary left hemithorax volume loss. 2. Stable right midlung opacity dating back to 2017 presumably chronic atelectasis and/or scarring.
[2017-12-08] MEDS ORDERED: MAGNESIUM SULFATE-D5W PMX 1 GM in DEXTROSE/WATER 1 100ML.BAG IVPB ONE (08:42)
[2017-12-08] MEDS ORDERED: methylPREDNISolone SOD SUCCI 125 MG/2 ML VIAL IV STA (09:42)
[2017-12-08] MEDS ORDERED: ACETAMINOPHEN TAB 500 MG TAB PO PRN ×2 (09:51→10:07)
[2017-12-08] MEDS: SODIUM CHLORIDE 0.9% 1,000 ML IV SCH (09:54)
[2017-12-08] MEDS ORDERED: PNEUMOCOCCAL VACC-PNEUMOVAX 23 25 MCG/0.5 ML VIAL IM ONE (11:16)
[2017-12-08] MEDS ORDERED: INFLUENZA VACCINE (6 MOS+) 60 MCG/0.5 ML SYRINGE IM ONE (11:17)
[2017-12-08 11:36] LABS: Glucose,Whole Blood 178 mg/dL (75-99)
[2017-12-08] MEDS ORDERED: TEMAZEPAM 15 MG CAP PO PRN (11:48)
[2017-12-08] MEDS ORDERED: ALPRAZolam 0.25 MG TAB PO PRN (11:48)
[2017-12-08] MEDS ORDERED: LORazepam 0.5 MG TAB PO PRN (11:48)
[2017-12-08] MEDS: IPRATROPIUM-ALBUTEROL 3 ML NEB INHALATION SCH ×4 (12:21→23:59)
--- NOTE | 2017-12-08 12:35 | CONS ---
CONSULTATION DATE OF SERVICE: 12/08/2017 HISTORY OF PRESENT ILLNESS: Patient is a 52-year-old male with history of alpha-1 antitrypsin deficiency and recently found to have a lung mass in the right upper lobe which is in the workup stage. Patient is scheduled for bronchoscopy on Monday. Last night, patient states that he drank approximately four 16 ounce beers from the time of 6:30 pm to 11 pm, then he went to bed. He got up about 4:30 am and opened up another beer, had a few drinks and said this is too early and said he was going to go back to bed. When he did lay back down, he started coughing. Continued to cough without being able to get it under control, got up to go to the bathroom and looked down on the floor and did see a drop of blood. Again, continued coughing and started coughing up dark red blood clots with a mixture of bright red blood. At that time, EMS was called and patient was brought into the emergency room and admitted for further evaluation and treatment. PAST MEDICAL HISTORY: Significant for diabetes mellitus, hypertension, diabetes related retinopathy and right lung mass, ETOH abuse, alpha-1 antitrypsin deficiency. PAST SURGICAL HISTORY: Significant for hernia repair, cataract surgery. ALLERGIES: Include AMOXICILLIN which causes rash and hives. MEDICATIONS: Patient is on at home include Actos 30 mg p.o. daily, melatonin 10 mg p.o. q.h.s., Prinivil 5 mg p.o. q.h.s., Atrovent HFA 2 puffs q.i.d., Lantus 35 units subcu daily, Tylenol 500 mg p.o. q.4-6 hours p.r.n., and Refresh Tears 1 drop both eyes daily. FAMILY HISTORY: Mother is alive and well. SOCIAL HISTORY: Patient with no history of smoking, does admit to marijuana years ago. Patient does have history of ETOH abuse and tries to go 5 or 6 days without drinking and then may drink for a few days and then again will try to abstain for 5 or 6 days. However, does have a history of heavy alcohol abuse. Denies any history of drug abuse. REVIEW OF SYSTEMS: General is negative for any fever. Denies any chills. Patient does admit to not having an appetite. Weight has been fluctuating up and down. HEENT is positive for headache currently as patient is anxious and blood pressure is elevated. Denies any acute visual changes; however, did have treatment for retinopathy in the left eye this past Monday. Patient also complains of difficulty hearing out of the right ear which is chronic. Denies any nose bleeds. Denies any sore throat or difficulty swallowing. Patient does have seasonal allergies. RESPIRATORY: Positive for shortness of breath with cough with hemoptysis. CARDIOVASCULAR: Negative for any chest pain. Patient does have intermittent palpitations. GI: Negative for abdominal pain, nausea, vomiting, or constipation. Patient does have problems with loose stools and is scheduled for an endoscopy and a colonoscopy this coming Monday. was negative for any dysuria or hematuria. Does complain of a weak stream. Endocrine is positive for diabetes mellitus which is currently requiring insulin. MUSCULOSKELETAL: Positive for joint pain and arthritis. NEUROLOGIC: Negative for any history of seizures. Patient does have neuropathy to the bilateral lower extremities. PSYCHIATRIC: Positive for anxiety and depression. PHYSICAL EXAM: General is a pleasant 52-year-old male who is seen, lying in bed. He is awake and alert, is in no acute distress. Blood pressure is elevated and being addressed. HEENT. Head is normocephalic, atraumatic. Pupils equal, round, react to light. Left conjunctivae is bloodshot. Patient also complaining of pain to that left eye where he had the injection on Monday. Ears and nose, no discharge is noted. Mouth, moist mucous membranes. NECK: Supple. Trachea is midline. LUNGS: With decreased breath sounds. No clear rales or wheezes. HEART: S1, S2 are heard. Not tachycardic. ABDOMEN: Soft. Bowel sounds are heard. Extremities with no edema. NEUROLOGIC: Patient is awake, alert, oriented. He is anxious. LABS: White count is 3.3, hemoglobin is 13.2, hematocrit 40.0 with 131,000 platelets. PT is 10.5, INR is 1.1, PTT is 23.5. Sodium is 140, potassium is 3.4, chloride is 102, CO2 is 24, anion gap is 14, BUN is 7, creatinine is 0.60, glucose is 176, calcium is 9.5, magnesium is 1.3, total bilirubin 0.5, AST is 44, ALT is 19, alk phos is 101, total CK is 87, MB is 3.6, relative index 4.1, troponin 0.019. BNP is 700. Total protein 7.7, albumin is 3.9. Serum alcohol is 27. ASSESSMENT: 1. Hemoptysis. 2. Alpha 1 antitrypsin deficiency. 3. Acute exacerbation of chronic obstructive pulmonary disease. 4. Right lung mass. 5. Hypokalemia. 6. Hypomagnesemia. 7. ETOH abuse. 8. Hypertension. PLAN: Will increase antihypertensives to b.i.d. and add a p.r.n. for systolic greater than 160. Will add Protonix b.i.d. for GI prophylaxis. Patient will be on IV Solu-Medrol 60 mg IV q.6 hours to help decrease airway inflammation. We will order frequent ambulation and SCDs for DVT prophylaxis. Magnesium and potassium have both been replaced. Patient will be on bronchodilators and will add aerosol steroids. Will check a CT of the chest without contrast. Thank you for the consultation. We will follow patient closely with you, making further changes as necessary. MMODL / IJN: [id number] /
[2017-12-08] MEDS: TOBRAMYCIN 0.3% OPHTH DROPS 5 ML BTL BOTH EYES SCH ×2 (12:56→17:37)
[2017-12-08] MEDS: LEVOFLOXACIN 500MG-D5W PMX 500 MG in DEXTROSE/WATER 1 100ML.BAG IVPB SCH ×2 (12:56→12:59)
[2017-12-08] MEDS: INSULIN ASPART 100 UNIT/ML 1 ML 10 ML VIAL SQ SCH ×3 (12:56→22:41)
[2017-12-08] MEDS: LISINOPRIL 10 MG TAB PO SCH ×2 (12:59→22:10)
--- NOTE | 2017-12-08 15:09 | CT ---
EXAMINATION TYPE: CT chest wo con DATE OF EXAM: 12/08/2017 COMPARISON: NONE HISTORY: Coughing up blood today. CT DLP: 642 mGycm. Automated Exposure Control for Dose Reduction was Utilized. TECHNIQUE: CT scan of the thorax is performed without IV contrast. FINDINGS: LUNGS: Measured on soft tissue windows series 3 image 24 there is an elongated peripherally spiculate d partially cavitary 3.8 x 1.7 x 1.3 cm highly suspicious right upper lobe pulmonary mass abutting th e interlobar fissure. Subpleural left-sided soft tissue attenuated pulmonary nodule measuring 7 mm is seen on image 28. A small left pleural effusion and associated compressive atelectasis are seen. Groundglass opacities within the right upper lobe are scattered. No pneumothorax. MEDIASTINUM: Evaluation of adenopathy is limited without intravenous contrast although there is suspi cion for left and right hilar adenopathy. No other mediastinal adenopathy is seen. Moderate coronary artery calcifications are identified mild cardiomegaly. No pericardial effusion is seen. Small epiph renic lymph nodes are appreciated. OTHER: The spleen is enlarged measuring 15.6 cm in longitudinal dimension. There is a nodular contour the liver suggestive of underlying hepatocellular disease with enlargement of the main portal vein m easuring up to 2.1 cm suggestive of portal venous hypertension. Splenic varices are also noted. Few v arices are also seen in the gastric hepatic ligament. There is sclerosis of the posterior margin of rib 7 on the right concerning for osseous metastasis. M ultilevel bridging osteophytes are seen of the thoracic spine. IMPRESSION: 1. Highly suspicious right upper lobe partially cavitary pulmonary mass that should be considered car cinoma until proven otherwise. Further evaluation with PET CT or percutaneous biopsy are recommended. 2. Subpleural left pulmonary nodule, left pleural effusion, and sclerotic right rib lesion as well as probable bilateral hilar adenopathy that are suspicious for metastasis. 3. Findings suggestive of hepatocellular disease/cirrhosis and portal venous hypertension.
[2017-12-08] MEDS ORDERED: Potassium Replacement Protocol 1 EACH MISC MISCELLANE PRN (16:19)
[2017-12-08 16:58] LABS: Glucose,Whole Blood 273 mg/dL (75-99)
[2017-12-08] MEDS: POTASSIUM CHLORIDE ER 20 MEQ TAB.ER PO SCH ×2 (17:34→17:42)
[2017-12-08] MEDS: methylPREDNISolone SOD SUCCI 125 MG/2 ML VIAL IV SCH (17:34)
[2017-12-08] MEDS ORDERED: THIAMINE 100 MG/ML 2 ML VIAL IM STA (18:33)
[2017-12-08] MEDS ORDERED: LORazepam 2 MG/ML INJ IV PRN ×3 (18:33)
[2017-12-08] MEDS: PANTOPRAZOLE 40 MG TABLET PO SCH (18:54)
[2017-12-08] MEDS: BUDESONIDE 0.5 MG/2 ML NEBU INHALATION SCH (19:27)
[2017-12-08] MEDS: THIAMINE 100 MG TAB PO SCH (19:42)
--- NOTE | 2017-12-08 19:53 | HP ---
HISTORY AND PHYSICAL CHIEF COMPLAINTS: Shortness of breath and hemoptysis. HISTORY OF PRESENT ILLNESS: This 52-year-old gentleman with a past medical history of multiple medical problems, including COPD, diabetes mellitus, type 2, hyperlipidemia, being for Dr. Owens and Dr. Jonathon Flores in the outpatient setting, was recently diagnosed to have right lung mass. The patient was supposed to have a navigational bronchoscopy and biopsy on Wednesday, December 13, 2017, but the patient was complaining of shortness of breath. The patient last night also had significant hemoptysis, mild to moderate in intensity. Patient came to [facility] and was admitted for further evaluation and treatment. There is no history of any fever, rigor, chills. No history of headache, loss of consciousness, seizures. A repeat CT scan of the chest was done which showed a highly suspicious right upper lobe partially cavitary pulmonary mass and a subpleural left pulmonary nodule. Left pleural effusion was also noted. Some hepatocellular disease and cirrhosis and portal venous hypertension were also suspected. Patient also had a history of significant EtOH. There is no history of any fever, rigor or chills. No history of headache, loss of consciousness, seizures. PAST MEDICAL HISTORY: 1. History of COPD. 2. Diabetes mellitus. 3. Hypertension. 4. Hyperlipidemia. 5. History of hernia repair. 6. Anxiety. 7. Depression. HOME MEDICATIONS: 1. Actos 30 mg p.o. daily. 2. Melatonin 10 mg at bedtime. 3. Prinivil 5 mg p.o. at bedtime. 4. Atrovent 2 puffs q.i.d. 5. Lantus 35 units subcutaneously daily. 6. Refresh 1 drop daily. 7. Ventolin HFA 1-2 puffs q.6 p.r.n. 8. Tylenol 500 mg q.4-6 p.r.n. ALLERGIES: AMOXICILLIN. FAMILY HISTORY: History of diabetes mellitus and hypertension in the family. History of anxiety. SOCIAL HISTORY: Occasional alcohol intake. Otherwise no history of smoking. REVIEW OF SYSTEMS: ENT: No diminished hearing. No diminished vision. CARDIOVASCULAR SYSTEM: As mentioned earlier. RESPIRATORY SYSTEM: As mentioned earlier. GI: No nausea, vomiting. : No dysuria or retention. NERVOUS SYSTEM: As mentioned earlier. ALLERGY/IMMUNOLOGY: No asthma, hayfever. MUSCULOSKELETAL: As mentioned earlier. HEMATOLOGY/ONCOLOGY: As mentioned earlier. ENDOCRINE: Diabetes mellitus. CONSTITUTIONAL: As mentioned earlier. DERMATOLOGY: Negative. RHEUMATOLOGY: Negative. PSYCHIATRY: As mentioned earlier. PHYSICAL EXAMINATION: Patient is alert, oriented x3. The pulse is 104, blood pressure 164/91, respiration 19, temperature 98.8, pulse ox 97% on 2 L. HEENT: Conjunctivae normal. Oral mucosa moist. Left eye redness present. NECK: No jugular venous distention. No carotid bruit. No lymph node enlargement. CARDIOVASCULAR SYSTEM: S1, S2 muffled. RESPIRATORY SYSTEM: Breath sounds diminished at the bases. A few scattered rhonchi and crackles. ABDOMEN: Soft, non-tender. No mass palpable. LEGS: No edema. No swelling. NERVOUS SYSTEM: Higher functions as mentioned earlier. Moves all 4 limbs. No focal motor or sensory deficit. LYMPHATICS: No lymph node palpable in neck, axillae or groin. SKIN: No ulcer, rash, bleeding. LABS: WBC 3.3, hemoglobin 13.2, platelets 131, sodium 140, potassium 3.4, magnesium 1.3. ASSESSMENT: 1. Hemoptysis with right upper lobe cavitary lesion, possible bronchogenic carcinoma. 2. Subpleural left pulmonary nodule, left pleural effusion and sclerotic right rib lesion for evaluation. 3. Possible delirium tremens and early alcohol withdrawals. 4. Mild leukopenia. 5. Thrombocytopenia. 6. Hypokalemia. 7. Hypomagnesemia. 8. History of ethanol. 9. Chronic obstructive pulmonary disease. 10.Diabetes mellitus, type 2. 11.Hypertension. 12.Hyperlipidemia. 13.History of alpha-1 antitrypsin deficiency. 14.Bilateral peripheral neuropathy. 15.Left eye conjunctivitis and blepharitis. 16.Anxiety. 17.Depression. 18.History of cocaine and marijuana. RECOMMENDATIONS AND DISCUSSION: In this 52-year-old gentleman who presented with multiple complex medical issues, we will monitor the patient closely, continue the current medications, continue symptomatic treatment. I recommend bronchodilators, a course of steroids as well as empiric antibiotics. Pulmonary consultation. Monitor hemoglobin closely. I would also recommend CIWA protocol. Continue to monitor. Supplement vitamins. Prognosis guarded because of multiple complex medical issues. Further recommendations to follow. A copy of this dictation is being forwarded to Dr. Owens, who is the primary physician. MMODL / IJN: [id number] /
[2017-12-08] MEDS: MELATONIN 5 MG TABLET PO SCH (20:26)
[2017-12-08] MEDS: hydrALAZINE HCL 50 MG TAB PO SCH (20:26)
[2017-12-08 20:28] LABS: Hemoglobin A1C 4.5 % (4.0-6.0)
[2017-12-08 20:31] LABS: Glucose,Whole Blood 378 mg/dL (75-99)
[2017-12-08] MEDS ORDERED: INSULIN REGULAR 100 UNIT in SODIUM CHLORIDE 0.9% 100 ML IV SCH (20:45)
[2017-12-08] MEDS ORDERED: LISINOPRIL 5 MG TAB PO SCH (21:00)
[2017-12-08 22:11] LABS: Glucose,Whole Blood 308 mg/dL (75-99)
[2017-12-08 22:51] LABS: Glucose,Whole Blood 284 mg/dL (75-99)
[2017-12-08 23:31] LABS: Glucose,Whole Blood 224 mg/dL (75-99)
[2017-12-09] MEDS: methylPREDNISolone SOD SUCCI 125 MG/2 ML VIAL IV SCH ×3 (00:44→11:11)
[2017-12-09] MEDS: TOBRAMYCIN 0.3% OPHTH DROPS 5 ML BTL BOTH EYES SCH ×5 (00:44→22:38)
[2017-12-09 01:14] LABS: Glucose,Whole Blood 174 mg/dL (75-99)
[2017-12-09 03:31] LABS: Glucose,Whole Blood 183 mg/dL (75-99)
[2017-12-09] MEDS: IPRATROPIUM-ALBUTEROL 3 ML NEB INHALATION SCH ×5 (04:13→18:58)
[2017-12-09] MEDS: SODIUM CHLORIDE 0.9% 1,000 ML IV SCH ×2 (05:18→22:25)
[2017-12-09 05:25] LABS: Glucose,Whole Blood 213 mg/dL (75-99)
[2017-12-09 07:47] LABS: Glucose,Whole Blood 181 mg/dL (75-99)
[2017-12-09] MEDS: INSULIN ASPART 100 UNIT/ML 1 ML 10 ML VIAL SQ SCH ×4 (07:55→20:52)
[2017-12-09] MEDS ORDERED: INSULIN REGULAR 100 UNIT in SODIUM CHLORIDE 0.9% 100 ML IV SCH (08:30)
[2017-12-09 08:31] LABS: Basophils % (A) 0 %; Eosinophils % (A) 0 %; HCT 36.3 % (39.0-53.0); HGB 12.4 gm/dL (13.0-17.5); Lymphocytes # (A) 0.4 k/uL (1.0-4.8); Lymphocytes % (A) 7 %; MCH 31.5 pg (25.0-35.0); MCHC 34.1 g/dL (31.0-37.0); MCV 92.4 fL (80.0-100.0); Mean Platelet Volume 7.1; Monocytes # (A) 0.1 k/uL (0-1.0); Monocytes % (A) 2 %; Neutrophils # (A) 5.2 k/uL (1.3-7.7); Neutrophils % (A) 90 %; Platelet Count 136 k/uL (150-450); RBC 3.93 m/uL (4.30-5.90); RDW 15.8 % (11.5-15.5); WBC 5.8 k/uL (3.8-10.6)
[2017-12-09] MEDS: LISINOPRIL 10 MG TAB PO SCH ×2 (08:35→22:37)
[2017-12-09] MEDS: hydrALAZINE HCL 50 MG TAB PO SCH ×2 (08:36→22:37)
[2017-12-09] MEDS: PANTOPRAZOLE 40 MG TABLET PO SCH ×2 (08:36→18:04)
[2017-12-09] MEDS: PIOGLITAZONE 30 MG TAB PO SCH (08:36)
[2017-12-09] MEDS: ARTIFICIAL TEARS-HYPROMELLOSE DROPS 15 ML BTL BOTH EYES SCH (08:37)
[2017-12-09 08:45] LABS: Anion Gap 10 mmol/L; Blood Urea Nitrogen 13 mg/dL (9-20); Calcium 9.1 mg/dL (8.4-10.2); Carbon Dioxide 24 mmol/L (22-30); Chloride 107 mmol/L (98-107); Glucose 194 mg/dL (74-99); Potassium 4.5 mmol/L (3.5-5.1); Sodium 141 mmol/L (137-145)
[2017-12-09] MEDS ORDERED: INSULIN DETEMIR 100 UNIT/ML 10 ML VIAL SQ SCH (09:00)
[2017-12-09] MEDS: BUDESONIDE 0.5 MG/2 ML NEBU INHALATION SCH ×2 (09:11→18:58)
[2017-12-09 09:29] LABS: Glucose,Whole Blood 253 mg/dL (75-99)
[2017-12-09] MEDS: THIAMINE 100 MG TAB PO SCH ×2 (11:10→18:04)
[2017-12-09] MEDS: FOLIC ACID 1 MG TAB PO SCH (11:11)
[2017-12-09] MEDS: MULTIVITAMINS, THERA 1 EACH TAB PO SCH (11:11)
[2017-12-09 11:21] LABS: Glucose,Whole Blood 222 mg/dL (75-99)
[2017-12-09] MEDS ORDERED: VANCOMYCIN 1,500 MG in SODIUM CHLORIDE 0.9% 250 ML IVPB STA (11:54)
[2017-12-09] MEDS ORDERED: THIAMINE 100 MG TAB PO SCH (12:00)
[2017-12-09] MEDS ORDERED: INSULIN ASPART 100 UNIT/ML 1 ML 10 ML VIAL SQ SCH (12:30)
[2017-12-09] MEDS ORDERED: VANCOMYCIN IV PER PHARMACY 1 EACH MISC MISCELLANE PRN (12:42)
[2017-12-09] MEDS: INSULIN DETEMIR 100 UNIT/ML 10 ML VIAL SQ SCH (12:46)
[2017-12-09 13:41] VITALS: BMI 27.6
--- NOTE | 2017-12-09 14:54 | PN ---
PROGRESS NOTE DATE OF SERVICE: 12/09/2017. He has been hemodynamically stable. He has not been febrile. He has minimal cough. His dyspnea is significantly better and he has had no further hemoptysis. PHYSICAL EXAMINATION: His respiratory rate is 18, pulse rate of 98, O2 saturation on 2 L by nasal cannula is 97%, blood pressure 184/104. HEENT reveals pupils are equal. No jugular venous distention. Chest reveals decreased breath sounds. Prolonged expiration. No clear wheeze. Cardiovascular system reveals an S1, S2. ABDOMEN: Soft. There is no pedal edema. Blood cultures preliminarily have shown gram-positive cocci. IMPRESSION: At this time: 1. Hemoptysis, most likely secondary to his lung mass in the right upper lobe. 2. Gram-positive cocci in the blood. The etiology and reasoning for that is unclear. This may be due to contaminant versus pathogen. Would consult ID for further evaluation. Continue steroids. Control blood sugars. Continue him on antibiotics at this time. We will follow him closely during his hospital stay and appreciate the opportunity to participate in his care. MMODL / IJN: [id number] /
[2017-12-09 17:32] LABS: Glucose,Whole Blood 382 mg/dL (75-99)
[2017-12-09 20:50] LABS: Glucose,Whole Blood 411 mg/dL (75-99)
[2017-12-09] MEDS: VANCOMYCIN 1,500 MG in SODIUM CHLORIDE 0.9% 250 ML IVPB SCH (22:36)
[2017-12-09] MEDS: MELATONIN 5 MG TABLET PO SCH (22:37)
[2017-12-09] MEDS: cloNIDine HCL 0.1 MG TAB PO SCH (22:42)
--- NOTE | 2017-12-09 23:05 | PN ---
PROGRESS NOTE DATE OF SERVICE: 12/09/2017. INTERIM HISTORY: This 52-year-old gentleman admitted with significant hemoptysis, being closely monitored. The patient evaluated by Dr. Flores and outpatient bronchoscopy has been recommended. Currently the patient has also had extremely high elevated blood sugars on IV insulin drip. The blood culture also shows some gram-positive cocci. No chest pain. No palpitations. PAST MEDICAL HISTORY: Reviewed. REVIEW OF SYSTEMS: Cardiovascular: No angina or palpitations. Respirations: As mentioned earlier. GI: As mentioned earlier. : No dysuria. Nervous systems: No numbness or weakness. CURRENT MEDICATIONS: 1. Tylenol 500 mg q.6h p.r.n. 2. DuoNeb q.i.d. and p.r.n. 3. Pulmicort 0.5 b.i.d. 4. Folic acid 1 mg. 5. Apresoline 50 mg b.i.d. 6. NovoLog scale. 7. Levemir 34 units subcu daily. 8. Levaquin 500 mg IV daily. 9. Zestril 10 mg p.o. b.i.d. 10.CIWA protocol. 11.Melatonin. 12.Multivitamins. 13.Actos. 14.Vitamin B1. 15.Vancomycin. PHYSICAL EXAM: Patient is alert, oriented x3. Pulse is 106. Blood pressure 160/94, respiration 20, temperature 98 degrees, pulse ox 97% on room air. HEENT: Conjunctivae normal. Oral mucosa moist. Neck is no jugular venous distention. No carotid bruit. No lymph node enlargement. Cardiovascular systems: S1, S2. Respiration: Breath sounds diminished in the bases. A few scattered rhonchi and crackles. ABDOMEN: Soft, nontender. No mass palpable. Central nervous system: Higher functions as mentioned earlier. Moves all four limbs. No focal motor or sensory deficits. Lymphatics: No lymph nodes palpable in the neck, axillae or groin. Skin: No ulcer, rash or bleeding. LAB STUDIES: At this time shows WBC 5.8, hemoglobin 12.4, and creatinine 0.62. Accu-Cheks noted. Blood cultures noted. ASSESSMENT: 1. Hemoptysis with right upper lobe cavitary lesion, possibly ovarian carcinoma. 2. Subpleural left pulmonary nodule left pleural effusions and sclerotic right rib lesion for evaluation. 3. Diabetes type 2, uncontrolled on IV insulin drip. 4. Gram-positive cocci from the blood. 5. Possible delirium tremens and early alcohol withdrawal. 6. Mild leukopenia. 7. Thrombocytopenia. 8. Hypokalemia. 9. magnesium. 10.History of EtOH. 11.Chronic obstructive pulmonary disease. 12.Diabetes type 2. 13.Hypertension. 14.Hyperlipidemia. 15.History of alpha-1 antitrypsin deficiency. 16.Bilateral peripheral neuropathy. 17.Left eye conjunctivitis and blepharitis. 18.Anxiety. 19.Depression. 20.History of cocaine, marijuana. RECOMMENDATIONS AND DISCUSSION: Recommend to continue current medications, management and symptomatic treatment. Continue with antibiotics. Taper the steroids. Closely follow with Pulmonology. Guarded prognosis because of multiple complex medical issues. Further recommendations to follow. MMODL / IJN: [id number] / MTDD
[2017-12-10] MEDS: IPRATROPIUM-ALBUTEROL 3 ML NEB INHALATION SCH ×5 (00:58→15:22)
[2017-12-10] MEDS: VANCOMYCIN 1,500 MG in SODIUM CHLORIDE 0.9% 250 ML IVPB SCH (05:22)
[2017-12-10] MEDS: TOBRAMYCIN 0.3% OPHTH DROPS 5 ML BTL BOTH EYES SCH ×2 (05:23→11:46)
[2017-12-10] MEDS: BUDESONIDE 0.5 MG/2 ML NEBU INHALATION SCH (07:51)
[2017-12-10 07:56] LABS: Glucose,Whole Blood 131 mg/dL (75-99)
[2017-12-10 08:02] LABS: Anisocytosis Slight; Basophils % (A) 0 %; Eosinophils % (A) 1 %; HCT 34.9 % (39.0-53.0); HGB 11.2 gm/dL (13.0-17.5); Hypochromasia Slight; Lymphocytes # (A) 0.8 k/uL (1.0-4.8); Lymphocytes % (A) 16 %; MCH 30.1 pg (25.0-35.0); MCHC 32.1 g/dL (31.0-37.0); Mean Platelet Volume 7.2; Monocytes # (A) 0.3 k/uL (0-1.0); Monocytes % (A) 6 %; Neutrophils # (A) 3.9 k/uL (1.3-7.7); Neutrophils % (A) 77 %; Platelet Count 142 k/uL (150-450); RBC 3.71 m/uL (4.30-5.90); RDW 16.3 % (11.5-15.5); WBC 5.2 k/uL (3.8-10.6)
[2017-12-10] MEDS: INSULIN ASPART 100 UNIT/ML 1 ML 10 ML VIAL SQ SCH ×2 (08:05→12:38)
[2017-12-10 08:18] LABS: Anion Gap 9 mmol/L; Blood Urea Nitrogen 16 mg/dL (9-20); Calcium 8.9 mg/dL (8.4-10.2); Carbon Dioxide 23 mmol/L (22-30); Chloride 111 mmol/L (98-107); Glucose 118 mg/dL (74-99); Potassium 3.4 mmol/L (3.5-5.1); Sodium 143 mmol/L (137-145)
[2017-12-10] MEDS: LISINOPRIL 10 MG TAB PO SCH (09:34)
[2017-12-10] MEDS: cloNIDine HCL 0.1 MG TAB PO SCH (09:34)
[2017-12-10] MEDS: PIOGLITAZONE 30 MG TAB PO SCH (09:34)
[2017-12-10] MEDS: PANTOPRAZOLE 40 MG TABLET PO SCH (09:34)
[2017-12-10] MEDS: hydrALAZINE HCL 50 MG TAB PO SCH (09:34)
[2017-12-10] MEDS: ARTIFICIAL TEARS-HYPROMELLOSE DROPS 15 ML BTL BOTH EYES SCH (09:35)
[2017-12-10] MEDS: THIAMINE 100 MG TAB PO SCH (11:45)
[2017-12-10] MEDS: INSULIN DETEMIR 100 UNIT/ML 10 ML VIAL SQ SCH (11:45)
[2017-12-10] MEDS: MULTIVITAMINS, THERA 1 EACH TAB PO SCH (11:45)
[2017-12-10] MEDS: FOLIC ACID 1 MG TAB PO SCH (11:45)
[2017-12-10 11:55] LABS: Glucose,Whole Blood 221 mg/dL (75-99)
[2017-12-10] MEDS: LEVOFLOXACIN 500MG-D5W PMX 500 MG in DEXTROSE/WATER 1 100ML.BAG IVPB SCH (12:38)
--- NOTE | 2017-12-10 13:07 | PN ---
PROGRESS NOTE He was seen again on 12/10/2017. He has been hemodynamically stable. He is less short of breath. He has had no hemoptysis. His blood culture one out of two came back with coag-negative staph, which is likely to be a contaminant. PHYSICAL EXAMINATION: Vitals are stable. He is afebrile. His chest reveals prolonged expiration. No wheeze. Cardiovascular system reveals an S1, S2. Abdomen is soft. There is no pedal edema. IMPRESSION: 1. Hemoptysis secondary to airway inflammation is likely. 2. Lung mass, right upper lobe. 3. Small left pleural effusion with atelectatic changes. 4. Diabetes mellitus. At this point in time, patient is scheduled for EGD as well as colonoscopy in the next 48 hours, as well as a navigational bronchoscopy in 3 days time. I agree with possible discharge planning on him with a slow taper of prednisone, which can be done as an outpatient. He will need close outpatient follow up. He was counseled regarding his condition and this approach and has a fair understanding of our recommendations. MMODL / IJN: [id number] /
[2017-12-10 13:47] VITALS: BP 159/94; PULSE 98; RESP 18; TEMP 97.8
--- NOTE | 2017-12-11 06:23 | DS ---
DISCHARGE SUMMARY DATE OF SERVICE: 12/10/2017 FINAL DIAGNOSES: 1. Hemoptysis with right upper lobe cavitary lesion, possibly lung cancer. 2. Subpleural left pulmonary nodule with left pleural effusion and sclerotic right lobe lesion for evaluation. 3. Diabetes type 2, uncontrolled and hyperglycemia. 4. Gram-positive cocci, possibly contaminant with coagulase-negative Staph. 5. Possible acute delirium tremens and alcohol withdrawal. 6. Mild leukopenia. 7. Thrombocytopenia. 8. Hypokalemia. 9. History of EtOH. 10.Chronic obstructive pulmonary disease. 11.Diabetes type 2. 12.Hypertension. 13.Hyperlipidemia. 14.History of alpha-1 antitrypsin deficiency. 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 16.Left eye conjunctivitis and blepharitis. 17.Anxiety/depression. 18.History of cocaine and marijuana remotely. DISCHARGE DISPOSITION: The patient is being discharged in stable condition with guarded prognosis. HISTORY OF PRESENT ILLNESS: This 52-year-old gentleman with a past medical history of multiple medical problems was admitted with hemoptysis. The right upper lobe lung cancer suspected. Seen by Dr. Horace Flores who was originally planning outpatient endoscopy. The patient improved significantly. Patient was given symptomatic treatment. On exam, vital signs stable. Cardio system: S1, S2. Abdomen soft. Nervous system: No focal deficits. DISCHARGE ADVICE AND MEDICATIONS: 1. Diet is cardiac diet. 2. Activity limited until followup. 3. Follow up with Dr. Owens in 2-3 days. 4. Follow up with Dr. Horace Flores as recommended. MEDICATIONS ARE: As follows: 1. Tylenol 500 mg q.4h p.r.n. 2. Ventolin p.r.n. 3. Refresh eye drops. 4. Insulin Lantus 35 units subcu daily. 5. Atrovent 2 puffs q.i.d. p.r.n. 6. Melatonin 10 mg q.h.s. 7. Actos 30 mg p.o. daily. 8. Apresoline 50 mg b.i.d. 9. Zestril 10 mg b.i.d. 10.Protonix 40 mg daily. 11.Prednisone taper 40 mg daily for 2 days, 30 for two days, ten for two days and stop. 12.Tobramycin eyedrops. Once again, the patient being discharged in stable condition with guarded prognosis. MMODL / IJN: [id number] /
== END 2017-12-10 15:37 | disposition home or self-care (01) ==
LOC: EC 07:02 → 5ONC 09:44 → INTOOBSV 09:44 → UNDODISIN 12-10 15:37
PROVIDERS: ADMIT Internal Medicine; ATTEND Internal Medicine
DX: R04.2 Hemoptysis (principal); H46.9 Unspecified optic neuritis; J44.1 Chronic obstructive pulmonary disease with (acute) exacerbation; J90 Pleural effusion, not elsewhere classified; D69.6 Thrombocytopenia, unspecified; D72.819 Decreased white blood cell count, unspecified; E11.319 Type 2 diabetes mellitus with unspecified diabetic retinopathy without macular edema; E11.65 Type 2 diabetes mellitus with hyperglycemia; E11.42 Type 2 diabetes mellitus with diabetic polyneuropathy; Z79.4 Long term (current) use of insulin; E83.42 Hypomagnesemia; E87.6 Hypokalemia; F32.9 Major depressive disorder, single episode, unspecified; F41.9 Anxiety disorder, unspecified; H01.006 Unspecified blepharitis left eye, unspecified eyelid; H10.9 Unspecified conjunctivitis; I10 Essential (primary) hypertension; Z79.899 Other long term (current) drug therapy; Z82.49 Family history of ischemic heart disease and other diseases of the circulatory system; Z83.3 Family history of diabetes mellitus; R91.1 Solitary pulmonary nodule; Z88.0 Allergy status to penicillin; M19.90 Unspecified osteoarthritis, unspecified site; E78.5 Hyperlipidemia, unspecified; F10.20 Alcohol dependence, uncomplicated; Z79.84 Long term (current) use of oral hypoglycemic drugs
CPT/HCPCS: 96376 ×2; 96361 ×4; 96366 ×2; 96367 ×2; 96375 ×2; 96365; 99291; 36415; 94640 ×6; 94760; 93005; 83880; 80053; 80048 ×2; 82550; 82553; 83735; 84484; 85025 ×3; 85610; 85730; 87040 ×2; 87077; 87186; 83036; 71046; 71250; G0378 ×3; G0480; J3370 ×2; J2060; J2930 ×2; J1956 ×2; J3475; 80320

== ENCOUNTER → 2018-06-15 | Outpatient (CLI) | payer OTHER ==
--- NOTE | 2018-06-15 14:28 | XR ---
EXAMINATION TYPE: XR chest 2V DATE OF EXAM: 06/15/2018 COMPARISON: NONE HISTORY: Shortness of breath TECHNIQUE: Frontal and lateral views of the chest are obtained. FINDINGS: Scattered senescent parenchymal changes noted. Small right-sided pleural effusion with patchy density right lower lobe. Correlate for developing pne umonia. Heart size is stable. Mediastinal structures are stable and grossly unremarkable. No evidence for hilar prominence. Degenerative changes dorsal spine. IMPRESSION: 1. Small right-sided pleural effusion with patchy density right lower lobe. Correlate for developing pneumonia.
== END | disposition home or self-care (01) ==
LOC: RADXRMAIN 14:07
PROVIDERS: ATTEND Internal Medicine Pulmonary Disease
DX: J90 Pleural effusion, not elsewhere classified (principal); J98.4 Other disorders of lung
CPT/HCPCS: 71046

== ENCOUNTER → 2019-10-04 | Outpatient (CLI) | payer OTHER ==
--- NOTE | 2019-10-04 10:31 | XR ---
EXAMINATION TYPE: XR chest 2V DATE OF EXAM: 10/04/2019 COMPARISON: 4 HISTORY: Shortness of breath TECHNIQUE: Frontal and lateral views of the chest are obtained. FINDINGS: Scattered senescent parenchymal changes noted. Hyperinflation compatible with COPD. No infiltrates seen. Heart size is stable. Mediastinal structures are stable and grossly unremarkable. No evidence for hilar prominence. Degenerative changes dorsal spine. IMPRESSION: 1. Stable patchy density right lower lobe. Correlate for pneumonia.
== END | disposition home or self-care (01) ==
LOC: RADXRMAIN 10:00
PROVIDERS: ATTEND Internal Medicine
DX: J98.4 Other disorders of lung (principal)
CPT/HCPCS: 71046

== ENCOUNTER 2019-10-22 11:37 | Inpatient (IN) | payer OTHER ==
[2019-10-22] MEDS ORDERED: FUROSEMIDE 10 MG/ML 4 ML VIAL IV STA (11:59)
[2019-10-22] MEDS ORDERED: NITROGLYCERIN OINT 1 INCH/GM PACKET TOPICAL STA (11:59)
[2019-10-22] MEDS ORDERED: NITROGLYCERIN SL TABS 0.4 MG TAB SUBLINGUAL STA (11:59)
--- NOTE | 2019-10-22 12:04 | ED ---
General Adult HPI - General Chief complaint: Recheck/Abnormal Lab/Rx Stated complaint: SOB Time Seen by Provider: 10/22/19 11:46 Source: patient Mode of arrival: wheelchair - History of Present Illness Initial comments: Dictation was produced using [employer] dictation software. please excuse any grammatical, word or spelling errors. This patient was cared for during a federal and state declared state of emergency secondary to Covid 19 Chief Complaint: 54-year-old male told to come to the emergency department for abnormal lab. History of Present Illness: 54-year-old male he was sent here by his primary care physician for abnormal lab evaluation. He had a brain natruretic peptide that was ordered with the level of 12,772. He had these blood tests performed yesterday. Over the last several days patient has been having lower extremity swelling. He just completed a course of antibiotics for pneumonia. States she's been short of breath especially with exertion on lying flat. Patient denies any chest pain today. He denies any cardiac history. Denies any constitutional symptoms The ROS documented in this emergency department record has been reviewed and confirmed by me. Those systems with pertinent positive or negative responses have been documented in the HPI. All other systems are other negative and/or noncontributory. PHYSICAL EXAM: General Impression: Alert and oriented x3, not in acute distress HEENT: Normocephalic atraumatic, extra-ocular movements intact, pupils equal and reactive to light bilaterally, mucous membranes moist. Cardiovascular: Heart regular rate and rhythm Chest: Able to complete full sentences, no retractions, no tachypnea, diffuse crackles, 90 breathing Abdomen: abdomen soft, non-tender, non-distended, no organomegaly Musculoskeletal: Pulses present and equal in all extremities, 3+ pitting edema bilateral lower extremities Motor: no focal deficits noted Neurological: CN II-XII grossly intact, no focal motor or sensory deficits noted Skin: Intact with no visualized rashes Psych: Normal affect and mood ED course: 54-year-old male with abnormal outpatient lab. Vital signs upon arrival shows blood pressure 239/111, rest of vital signs within acceptable limits. His percent on room air. He does have diffuse crackles concerning for congestive heart failure. Given patient's elevated blood pressure there is concerns of hypertensive emergency. Patient given sublingual nitroglycerin and started on nitroglycerin paste. Laboratory evaluation obtained. CBC is within acceptable limits. Coag panel is unremarkable. Metabolic panel shows slight elevation of renal markers. This appears to be new compared to previous labs. Troponin elevated 0.049. Brain natruretic peptide is 11,000. Chest x-ray shows no acute processes. Patient given sublingual nitroglycerin and nitroglycerin paste. Patient's blood pressures improved. He does not appear to be in significant respiratory distress however he does have noisy breathing with pitting edema. Clinical presentation consistent with mild become sated heart failure. Patient denies any history of CHF. Patient will be admitted for new onset congestive heart failure. Cardiology consulted. EKG interpretation: Ventricular rate 70, normal sinus rhythm, MO interval 174, Q's 88, QTc 519. No MO prolongation, no QTC prolongation, no ST or T-wave changes noted. T-wave inversion in lead 3. Overall this EKG is nonspecific - Related Data Home Medications Medication Instructions Recorded Confirmed Albuterol Inhaler (Mhu) [Ventolin 1 - 2 puff INHALATION RT-Q6H PRN 11/20/16 12/08/17 Hfa Inhaler (Mhu)] Acetaminophen [Tylenol] 500 mg PO Q4-6H PRN 12/08/17 12/08/17 Carboxymethylcellulose Sodium 1 drop BOTH EYES DAILY 12/08/17 12/08/17 [Refresh Tears] Insulin Glargine,Hum.rec.anlog 35 unit SQ DAILY 12/08/17 12/08/17 [Lantus Solostar] Ipratropium [place] [Atrovent Hfa] 2 puff INHALATION RT-QID 12/08/17 12/08/17 Melatonin 10 mg PO HS 12/08/17 12/08/17 Pioglitazone HCl [Actos] 30 mg PO DAILY 12/08/17 12/08/17 Previous Rx's Medication Instructions Recorded Pantoprazole Sodium [Protonix] 40 mg PO DAILY #30 tablet.dr 12/09/17 Tobramycin 0.3% Ophth Soln [Tobrex 1 drops BOTH EYES Q6HR #1 ml 12/09/17 0.3% Ophth Soln] hydrALAZINE HCL [Apresoline] 50 mg PO BID #60 tab 12/09/17 lisinopriL [Zestril] 10 mg PO BID #60 tab 12/09/17 predniSONE 10 mg PO DIRECTED #20 tab 12/09/17 Allergies Allergy/AdvReac Type Severity Reaction Status Date / Time amoxicillin Allergy Rash/Hives Verified 10/22/19 11:43 Review of Systems ROS Statement: Those systems with pertinent positive or pertinent negative responses have been documented in the HPI. ROS Other: All systems not noted in ROS Statement are negative. Past Medical History Past Medical History: COPD, Diabetes Mellitus, Eye Disorder, Hyperlipidemia, Hypertension Additional Past Medical History / Comment(s): R lung massbiopsy December, he has also been informed he has fluid in his L lung, he was also just diagnosed with anthony 1 antitrypsin deficiency. Other hx: IDDM type II with neuropathy bilateral hands/feet, difficulty with ambulation when first gets up from lying position d/t neuropathy per pt, bilateral eye retinal bleeds- currently being tx with injections/laser and eyesight currently alittle poor, generalized body pain which he states has been going on for years, scoliosis, ETOH abuse. History of Any Multi-Drug Resistant Organisms: None Reported Past Surgical History: Hernia Repair, Tonsillectomy Additional Past Surgical History / Comment(s): Bilateral cataracts removed with lens implants, bilateral eye injections/laser for retinal bleeds, L inguinal hernia repair, Past Anesthesia/Blood Transfusion Reactions: No Reported Reaction Past Psychological History: Anxiety, Depression Smoking Status: Former smoker Past Alcohol Use History: Abuse, Daily, Heavy Past Drug Use History: Cocaine, Marijuana - Past Family History Father Family Medical History: Diabetes Mellitus, Hypertension Additional Family Medical History / Comment(s): Father has anxiety and it and depression run on his side of the family. He is 80yrs old. Mother Family Medical History: Hyperlipidemia Additional Family Medical History / Comment(s): Mother has anxiety. She is 74 yrs old. Course Vital Signs 10/22/19 10/22/19 10/22/19 11:37 12:29 12:31 Temperature 98.1 F Pulse Rate 82 71 Pulse Rate [ 74 Senior Software Tester ] Respiratory 22 18 Rate Blood Pressure 239/101 181/83 O2 Sat by Pulse 100 Oximetry Medical Decision Making - Lab Data Result diagrams: 10/22/19 12:08 10/22/19 12:08 Lab Results 10/22/19 10/22/19 10/22/19 Range/Units 12:08 12:08 12:08 WBC 4.3 (3.8-10.6) k/uL RBC 4.27 L (4.30-5.90) m/uL Hgb 11.8 L (13.0-17.5) gm/dL Hct 37.5 L (39.0-53.0) % MCV 87.8 (80.0-100.0) fL MCH 27.6 (25.0-35.0) pg MCHC 31.5 (31.0-37.0) g/dL RDW 14.6 (11.5-15.5) % Plt Count 158 (150-450) k/uL Neutrophils % 71 % Lymphocytes % 13 % Monocytes % 10 % Eosinophils % 2 % Basophils % 1 % Neutrophils # 3.1 (1.3-7.7) k/uL Lymphocytes # 0.6 L (1.0-4.8) k/uL Monocytes # 0.5 (0-1.0) k/uL Eosinophils # 0.1 (0-0.7) k/uL Basophils # 0.0 (0-0.2) k/uL Hypochromasia Slight Poikilocytosis Slight PT 11.1 (9.0-12.0) sec INR 1.1 (<1.2) APTT 19.0 L (22.0-30.0) sec Sodium 137 (137-145) mmol/L Potassium 4.2 (3.5-5.1) mmol/L Chloride 102 (98-107) mmol/L Carbon Dioxide 23 (22-30) mmol/L Anion Gap 12 mmol/L BUN 28 H (9-20) mg/dL Creatinine 1.44 H (0.66-1.25) mg/dL Est GFR (CKD-EPI)AfAm 64 (>60 ml/min/1.73 sqM) Est GFR (CKD-EPI)NonAf 55 (>60 ml/min/1.73 sqM) Glucose 103 H (74-99) mg/dL Plasma Lactic Acid Earl (0.7-2.0) mmol/L Calcium 9.0 (8.4-10.2) mg/dL Magnesium 1.6 (1.6-2.3) mg/dL Total Bilirubin 1.2 (0.2-1.3) mg/dL AST 42 (17-59) U/L ALT 26 (4-49) U/L Alkaline Phosphatase 107 (38-126) U/L Troponin I (0.000-0.034) ng/mL NT-Pro-B Natriuret Pep pg/mL Total Protein 6.9 (6.3-8.2) g/dL Albumin 3.7 (3.5-5.0) g/dL 10/22/19 10/22/19 10/22/19 Range/Units 12:08 12:08 12:08 WBC (3.8-10.6) k/uL RBC (4.30-5.90) m/uL Hgb (13.0-17.5) gm/dL Hct (39.0-53.0) % MCV (80.0-100.0) fL MCH (25.0-35.0) pg MCHC (31.0-37.0) g/dL RDW (11.5-15.5) % Plt Count (150-450) k/uL Neutrophils % % Lymphocytes % % Monocytes % % Eosinophils % % Basophils % % Neutrophils # (1.3-7.7) k/uL Lymphocytes # (1.0-4.8) k/uL Monocytes # (0-1.0) k/uL Eosinophils # (0-0.7) k/uL Basophils # (0-0.2) k/uL Hypochromasia Poikilocytosis PT (9.0-12.0) sec INR (<1.2) APTT (22.0-30.0) sec Sodium (137-145) mmol/L Potassium (3.5-5.1) mmol/L Chloride (98-107) mmol/L Carbon Dioxide (22-30) mmol/L Anion Gap mmol/L BUN (9-20) mg/dL Creatinine (0.66-1.25) mg/dL Est GFR (CKD-EPI)AfAm (>60 ml/min/1.73 sqM) Est GFR (CKD-EPI)NonAf (>60 ml/min/1.73 sqM) Glucose (74-99) mg/dL Plasma Lactic Acid Earl 1.0 (0.7-2.0) mmol/L Calcium (8.4-10.2) mg/dL Magnesium (1.6-2.3) mg/dL Total Bilirubin (0.2-1.3) mg/dL AST (17-59) U/L ALT (4-49) U/L Alkaline Phosphatase (38-126) U/L Troponin I 0.049 H* (0.000-0.034) ng/mL NT-Pro-B Natriuret Pep 71491 pg/mL Total Protein (6.3-8.2) g/dL Albumin (3.5-5.0) g/dL Disposition Clinical Impression: Heart failure Disposition: ADMITTED IP TO THIS HOSP Condition: Fair Referrals: Arabella Owens MD [Primary Care Provider] - 1-2 days Decision Time: 13:08
[2019-10-22 12:28] LABS: Albumin 3.7 g/dL (3.5-5.0); Magnesium 1.6 mg/dL (1.6-2.3); Potassium 4.2 mmol/L (3.5-5.1); Total Bilirubin 1.2 mg/dL (0.2-1.3); Total Protein 6.9 g/dL (6.3-8.2)
[2019-10-22 12:31] LABS: Basophils % (A) 1 %; Eosinophils # (A) 0.1 k/uL (0-0.7); Eosinophils % (A) 2 %; HCT 37.5 % (39.0-53.0); HGB 11.8 gm/dL (13.0-17.5); Hypochromasia Slight; Lymphocytes # (A) 0.6 k/uL (1.0-4.8); Lymphocytes % (A) 13 %; MCH 27.6 pg (25.0-35.0); MCHC 31.5 g/dL (31.0-37.0); MCV 87.8 fL (80.0-100.0); Mean Platelet Volume 7.2; Monocytes # (A) 0.5 k/uL (0-1.0); Monocytes % (A) 10 %; Neutrophils # (A) 3.1 k/uL (1.3-7.7); Neutrophils % (A) 71 %; Platelet Count 158 k/uL (150-450); Poikilocytosis Slight; RBC 4.27 m/uL (4.30-5.90); RDW 14.6 % (11.5-15.5); WBC 4.3 k/uL (3.8-10.6)
--- NOTE | 2019-10-22 12:33 | XR ---
EXAMINATION TYPE: XR chest 1V portable DATE OF EXAM: 10/22/2019 COMPARISON: Chest x-ray October 04, 2019. HISTORY: Dyspnea. TECHNIQUE: Single frontal view of the chest is obtained. FINDINGS: There is some chronic parenchymal change bilaterally with patchy left basilar opacity curr ent study. Right lung is clear. No pleural effusion or pneumothorax seen bilaterally. The cardiac si lhouette size is stable and mildly enlarged. Somewhat low lung volumes redemonstrated. The osseous structures are intact. IMPRESSION: Chronic changes and mild cardiomegaly with new retrocardiac left basilar acute infiltrat e. Advise progress two-view chest x-ray.
[2019-10-22 12:34] LABS: INR 1.1 (<1.2); Prothrombin Time 11.1 sec (9.0-12.0)
[2019-10-22] MEDS ORDERED: ASPIRIN 325 MG TAB PO STA (13:08)
[2019-10-22] MEDS ORDERED: ALBUTEROL NEBULIZED 2.5 MG/3 ML INHALATION PRN (15:46)
[2019-10-22] MEDS ORDERED: ARTIFICIAL TEARS-HYPROMELLOSE DROPS 15 ML BTL BOTH EYES PRN (15:46)
--- NOTE | 2019-10-22 16:00 | P.HPIM ---
History of Present Illness 60-year-old male was sent in from PCPs office because of elevated BNP patient presented there yesterday with bilateral pedal edema and BNP was done which showed elevation because of which the patient was asked to go to ER. Patient d oes have worsening pedal edema going on for about few weeks and worsening shortness of breath. Patient had a partial pneumonectomy for lung mass which is not cancerous. Since then patient has been short of breath which is exertional did complain of orthopnea didn't give a clear history of proximal nocturnal dyspnea. Patient was complaining of cough unable to bring up anything denied any fever chills nausea vomiting. Chest x-ray showed mild infiltrate in the left lower lung fregoso. Patient on exam does have elevated JVD. Patient admits to drinking alcohol moves reasonably he drinks anywhere between 2-10 beers a day. Patient says is quite a bit depressed denied any suicidal ideations. Review of Systems REVIEW OF SYSTEMS: CONSTITUTIONAL: No fever, no malaise, no fatigue. HEENT: No recent visual problems or hearing problems. Denied any sore throat. CARDIOVASCULAR: No chest pain, no palpitations, no syncope. PULMONARY: No shortness of breath, no cough, no hemoptysis. GASTROINTESTINAL: No diarrhea, no nausea, no vomiting, no abdominal pain. NEUROLOGICAL: No headaches, no weakness, no numbness. HEMATOLOGICAL: Denies any bleeding or petechiae. GENITOURINARY: Denies any burning micturition, frequency, or urgency. MUSCULOSKELETAL/RHEUMATOLOGICAL: Denies any joint pain, swelling, or any muscle pain. ENDOCRINE: Denies any polyuria or polydipsia. The rest of the 14-point review of systems is negative. 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, difficulty with ambulation when first gets up from lying position d/t neuropathy per pt, 2018 R lung benign mass/surgically removed, L lung pleural effusion, SOB with exertion since lung surgery in 2018, recent pneumonia-two or three weeks ago, alph 1 antitrypsin deficiency, bilateral eye retinal bleeds-currently being tx with injections/unsuccessful laser surgery, scoliosis, ETOH abuse History of Any Multi-Drug Resistant Organisms: None Reported Past Surgical History: Hernia Repair, Tonsillectomy Additional Past Surgical History / Comment(s): Bilateral cataracts removed with lens implants, bilateral eye injections/unsuccessful laser for retinal bleeds, L inguinal hernia repair, R lung biopsy/mass removal, colonoscopy/benign polypectomies. Past Anesthesia/Blood Transfusion Reactions: No Reported Reaction Smoking Status: Never smoker - Past Family History Father Family Medical History: Diabetes Mellitus, Hypertension Additional Family Medical History / Comment(s): Father has anxiety and it and depression run on his side of the family. He is 83yrs old. Mother Family Medical History: Hyperlipidemia Additional Family Medical History / Comment(s): Mother has anxiety. She is 76 yrs old. Medications and Allergies Home Medications Medication Instructions Recorded Confirmed Type Carboxymethylcellulose Sodium 1 drop BOTH EYES DAILY PRN 12/08/17 10/22/19 History [Refresh Tears] Albuterol Inhaler [Ventolin Hfa 2 puff INHALATION RT-QID PRN 10/22/19 10/22/19 History Inhaler] Atorvastatin [Lipitor] 10 mg PO HS 10/22/19 10/22/19 History Carvedilol [Coreg] 12.5 mg PO BID 10/22/19 10/22/19 History Fluticasone/Umeclidin/Vilanter 1 puff INHALATION RT-DAILY 10/22/19 10/22/19 History [Trelegy Ellipta 100-62.5-25] Furosemide [Lasix] 20 mg PO BID 10/22/19 10/22/19 History Insulin Glargine,Hum.rec.anlog 20 - 40 unit SQ DAILY 10/22/19 10/22/19 History [Basaglar Kwikpen U-100] LORazepam [Ativan] 1 mg PO DAILY PRN 10/22/19 10/22/19 History Potassium Chloride ER [K-Dur 10] 10 meq PO BID 10/22/19 10/22/19 History Ubidecarenone [Co Q-10] 100 mg PO DAILY 10/22/19 10/22/19 History Vitamin B Complex 1 cap PO DAILY 10/22/19 10/22/19 History lisinopriL [Zestril] 10 mg PO DAILY 10/22/19 10/22/19 History metFORMIN HCL [metFORMIN HCL ER] 500 mg PO BID 10/22/19 10/22/19 History Allergies Allergy/AdvReac Type Severity Reaction Status Date / Time amoxicillin Allergy Rash/Hives Verified 10/22/19 13:11 Physical Exam Vitals: Vital Signs Temp Pulse Pulse Resp BP Pulse Ox 10/22/19 13:37 75 18 188/92 10/22/19 13:08 70 18 186/87 10/22/19 12:31 71 18 181/83 10/22/19 12:29 74 10/22/19 11:37 98.1 F 82 22 239/101 100 Intake and Output 10/22/19 10/22/19 10/22/19 06:59 14:59 22:59 Other: Weight 99.79 kg PHYSICAL EXAMINATION: GENERAL: The patient is alert and oriented x3, not in any acute distress. Well developed, well nourished. HEENT: Pupils are round and equally reacting to light. EOMI. No scleral icterus. No conjunctival pallor. Normocephalic, atraumatic. No pharyngeal erythema. No thyromegaly. CARDIOVASCULAR: S1 and S2 present. No murmurs, rubs, or gallops. Does have elevated JVD PULMONARY: Chest is clear to auscultation, no wheezing or crackles. ABDOMEN: Soft, nontender, nondistended, normoactive bowel sounds. No palpable organomegaly. MUSCULOSKELETAL: No joint swelling or deformity. EXTREMITIES: No cyanosis, clubbing, extensive bilateral pedal edema 3+ extending up to both knees NEUROLOGICAL: Gross neurological examination did not reveal any focal deficits. SKIN: No rashes. Results CBC & Chem 7: 10/22/19 12:08 10/22/19 12:08 Labs: Abnormal Lab Results - Last 24 Hours (Table) 10/22/19 10/22/19 10/22/19 Range/Units 12:08 12:08 12:08 RBC 4.27 L (4.30-5.90) m/uL Hgb 11.8 L (13.0-17.5) gm/dL Hct 37.5 L (39.0-53.0) % Lymphocytes # 0.6 L (1.0-4.8) k/uL APTT 19.0 L (22.0-30.0) sec BUN 28 H (9-20) mg/dL Creatinine 1.44 H (0.66-1.25) mg/dL Glucose 103 H (74-99) mg/dL Troponin I (0.000-0.034) ng/mL 10/22/19 Range/Units 12:08 RBC (4.30-5.90) m/uL Hgb (13.0-17.5) gm/dL Hct (39.0-53.0) % Lymphocytes # (1.0-4.8) k/uL APTT (22.0-30.0) sec BUN (9-20) mg/dL Creatinine (0.66-1.25) mg/dL Glucose (74-99) mg/dL Troponin I 0.049 H* (0.000-0.034) ng/mL Thrombosis Risk Factor Assmnt - Choose All That Apply Each Factor Represents 1 point: Abnormal pulmonary function (COPD), Age 41-60 years, Heart failure (<1month), Obesity (BMI >25), Serious lung disease incl. pneumonia (< 1month), Swollen legs (current) Other Risk Factors: No Other congenital or acquired thrombophilia - If yes, enter type in comment: No Thrombosis Risk Factor Assessment Total Risk Factor Score: 6 Thrombosis Risk Factor Assessment Level: High Risk Assessment and Plan Plan: -Possible congestive heart failure, ejection fraction is not known, will order an echo cardiac and patient was started on 40 IV twice a day of Lasix will be continued cardiology was consulted. Etiology of cardio myopathy is not clear --Possible acute renal failure renal azotemia from congestive heart failure exacerbation patient baseline creatinine is around 1 now around 1.44 -Mild elevation in troponin secondary to heart failure and renal failure. We'll repeat couple more sets of troponins were patient denied any chest pain -Type 2 diabetes mellitus and patient was started on home regimen. -COPD with the removal of noncancerous mass from the lung patient is not in Celebrex admission this time -hyperlipidemia -Hypertension -Depression: Patient will be started on citalopram -Due to prophylaxis with subcutaneous heparin
[2019-10-22] MEDS: HEPARIN SODIUM,PORCINE 5,000 UNIT/ML 1 ML VIAL SQ SCH ×2 (16:48→22:27)
[2019-10-22] MEDS: carvediloL 12.5 MG TAB PO SCH (18:48)
[2019-10-22] MEDS: POTASSIUM CHLORIDE ER 10 MEQ TAB.ER.PRT PO SCH (20:01)
[2019-10-22] MEDS: SODIUM CHLORIDE 0.9% 1,000 ML IV SCH (20:01)
[2019-10-22] MEDS: FUROSEMIDE 10 MG/ML 4 ML VIAL IV SCH (20:01)
[2019-10-22] MEDS: ATORVASTATIN 10 MG TAB PO SCH (20:01)
[2019-10-22 21:23] LABS: Glucose,Whole Blood 170 mg/dL (75-99)
[2019-10-22] MEDS: LORazepam 1 MG TAB PO PRN (22:27)
[2019-10-22] MEDS: hydrALAZINE HCL 20 MG/ML 1 ML VIAL IVP PRN (22:50)
[2019-10-23] MEDS: hydrALAZINE HCL 20 MG/ML 1 ML VIAL IVP PRN ×2 (03:55→08:07)
[2019-10-23] MEDS: carvediloL 12.5 MG TAB PO SCH ×3 (06:00→17:05)
[2019-10-23 06:01] LABS: Glucose,Whole Blood 140 mg/dL (75-99)
[2019-10-23 06:36] LABS: Calcium 8.7 mg/dL (8.4-10.2); Magnesium 1.6 mg/dL (1.6-2.3); Potassium 3.9 mmol/L (3.5-5.1)
[2019-10-23 08:01] LABS: Glucose,Whole Blood 154 mg/dL (75-99)
[2019-10-23] MEDS: CITALOPRAM HYDROBROMIDE 10 MG TAB PO SCH (08:04)
[2019-10-23] MEDS: HEPARIN SODIUM,PORCINE 5,000 UNIT/ML 1 ML VIAL SQ SCH ×3 (08:05→23:00)
[2019-10-23] MEDS: POTASSIUM CHLORIDE ER 10 MEQ TAB.ER.PRT PO SCH ×2 (08:05→21:21)
[2019-10-23] MEDS: ASPIRIN 325 MG TAB PO SCH (08:07)
[2019-10-23] MEDS: FUROSEMIDE 10 MG/ML 4 ML VIAL IV SCH ×2 (08:07→11:06)
[2019-10-23] MEDS: INSULIN DETEMIR (LEVEMIR) 100 UNIT/ML SYR SQ SCH (08:15)
[2019-10-23] MEDS: INSULIN ASPART (NovoLOG) 100 UNIT/ML VIAL SQ SCH ×4 (08:18→21:21)
[2019-10-23] MEDS: SYMBICORT 80-4.5 MCG INHALER INHALATION SCH ×2 (08:58→19:54)
[2019-10-23] MEDS: IPRATROPIUM 0.5 MG/2.5 ML NEBU INHALATION SCH ×4 (08:59→19:53)
[2019-10-23] MEDS ORDERED: lisinopriL 10 MG TAB PO SCH (09:00)
[2019-10-23] MEDS ORDERED: lisinopriL 10 MG TAB PO STA (10:56)
[2019-10-23 12:04] LABS: Glucose,Whole Blood 122 mg/dL (75-99)
[2019-10-23] MEDS: SODIUM CHLORIDE 0.9% 1,000 ML IV SCH (12:58)
[2019-10-23] MEDS ORDERED: ACETAMINOPHEN TAB 325 MG TAB PO PRN (13:05)
--- NOTE | 2019-10-23 13:38 | ECHOF ---
Referral Reason:Congestive heart failure MEASUREMENTS -------- HEIGHT: 165.1 cm WEIGHT: 99.8 kg BP: 189/88 RVIDd: 3.2 cm (< 3.3) IVSd: 2.4 cm (0.6 - 1.1) LVIDd: 4.5 cm (3.9 - 5.3) LVPWd: 2.5 cm (0.6 - 1.1) IVSs: 2.5 cm LVIDs: 2.7 cm LVPWs: 3.1 cm LAESV Index (A-L): 33.44 ml/m Ao Diam: 4.3 cm (2.0 - 3.7) AV Cusp: 2.0 cm (1.5 - 2.6) LA Diam: 3.3 cm (2.7 - 3.8) MV EXCURSION: 19.089 mm (> 18.000) MV EF SLOPE: 106 mm/s (70 - 150) EPSS: 0.1 cm MV E Felix: 1.14 m/s MV DecT: 174 ms MV A Felix: 0.61 m/s MV E/A Ratio: 1.86 AR PHT: 521 ms RAP: 5.00 mmHg RVSP: 14.46 mmHg TAPSE: 19.91 mm FINDINGS -------- This was a technically good study. The left ventricular size is normal. There is severe concentric left ventricular hypertrophy. Ove rall left ventricular systolic function is normal with, an EF between 55 - 60 %. Normal LAP Grade 1 Diastolic Dysfunction. The right ventricle is normal in size. The right ventricular systolic function is normal. LA is midly dilated 29-33ml/m2. The right atrial size is normal. The aortic valve is trileaflet and appears structurally normal. There is mild aortic regurgitation. The mitral valve is normal. The mitral valve leaflets are mildly thickened. Mild mitral regurgita tion is present. The tricuspid valve appears structurally normal. Mild tricuspid regurgitation present. Right vent ricular systolic pressure is normal at < 35 mmHg. There is no pulmonic regurgitation present. The aortic root and ascending aorta are dilated measuring up to 4.2 cm. Normal inferior vena cava with normal inspiratory collapse consistent with estimated right atrial pre ssure of 5 mmHg. There is a trivial pericardial effusion present. CONCLUSIONS -------- 1. The left ventricular size is normal. 2. There is severe concentric left ventricular hypertrophy. 3. Overall left ventricular systolic function is normal with, an EF between 55 - 60 %. 4. Normal LAP Grade 1 Diastolic Dysfunction. 5. LA is midly dilated 29-33ml/m2. 6. There is mild aortic regurgitation. 7. The mitral valve leaflets are mildly thickened. 8. Mild mitral regurgitation is present. 9. Mild tricuspid regurgitation present. 10. The aortic root and ascending aorta are dilated measuring up to 4.2 cm. 11. There is a trivial pericardial effusion present. SLAT PICKLER: Elisha Gomez RDCS
[2019-10-23 13:41] VITALS: BMI 34.2
--- NOTE | 2019-10-23 14:51 | P.PN ---
Subjective Patient is admitted for the possible volume overload and CHF exacerbation patient is to be on Lasix patient blood pressure was very high with the sys tolics about 200 because of which patient was started on Coreg, patient lisinopril dose was increased patient is being continued on diuretics patient's swelling did improve JVD did improve compared to yesterday. Patient's serum creatinine did improve from 1.4-1.31. Patient had an echo which showed normal ejection fraction but does have grade 1 diastolic dysfunction Constitutional: Denied any fatigue denied any fever. Cardio vascular: denied any chest pain, palpitations Gastrointestinal denied any nausea vomiting Pulmonary: Still complaining of shortness of breath Neurologic denied any new focal deficits All inpatient medications were reviewed and appropriate changes in these medications as dictated in the interval history and assessment and plan. Objective - Vital Signs Vital signs: Vital Signs Temp 98 F 10/23/19 12:43 Pulse 80 10/23/19 12:43 Resp 18 10/23/19 12:43 BP 191/85 10/23/19 12:43 Pulse Ox 93 L 10/23/19 12:43 Intake & Output 10/22/19 10/23/19 10/23/19 18:59 06:59 18:59 Intake Total 320 Output Total 1600 550 Balance -1600 -230 Weight 99.79 kg 93.5 kg 93.5 kg Intake: IV 20 Invasive Line 1 20 Oral 300 Output: Urine 1600 550 Other: Voiding Method Urinal Urinal - Exam PHYSICAL EXAMINATION: GENERAL: The patient is alert and oriented x3, not in any acute distress. Well developed, well nourished. HEENT: Pupils are round and equally reacting to light. EOMI. No scleral icterus. No conjunctival pallor. Normocephalic, atraumatic. No pharyngeal erythema. No thyromegaly. CARDIOVASCULAR: S1 and S2 present. No murmurs, rubs, or gallops. JVD improved PULMONARY: Chest is clear to auscultation, no wheezing or crackles. ABDOMEN: Soft, nontender, nondistended, normoactive bowel sounds. No palpable organomegaly. MUSCULOSKELETAL: No joint swelling or deformity. EXTREMITIES: No cyanosis, clubbing, or pedal edema improved compared to yesterday but still has significant edema NEUROLOGICAL: Gross neurological examination did not reveal any focal deficits. SKIN: No rashes. - Labs CBC & Chem 7: 10/22/19 12:08 10/23/19 05:36 Labs: Abnormal Lab Results - Last 24 Hours (Table) 10/22/19 10/22/19 10/23/19 Range/Units 18:01 21:17 00:06 BUN (9-20) mg/dL Creatinine (0.66-1.25) mg/dL Glucose (74-99) mg/dL POC Glucose (mg/dL) 170 H (75-99) mg/dL Troponin I 0.057 H* 0.056 H* (0.000-0.034) ng/mL 10/23/19 10/23/19 10/23/19 Range/Units 05:36 05:59 07:58 BUN 32 H (9-20) mg/dL Creatinine 1.31 H (0.66-1.25) mg/dL Glucose 128 H (74-99) mg/dL POC Glucose (mg/dL) 140 H 154 H (75-99) mg/dL Troponin I (0.000-0.034) ng/mL 10/23/19 Range/Units 11:54 BUN (9-20) mg/dL Creatinine (0.66-1.25) mg/dL Glucose (74-99) mg/dL POC Glucose (mg/dL) 122 H (75-99) mg/dL Troponin I (0.000-0.034) ng/mL Assessment and Plan Plan: -congestive heart failure, appears to have systolic dysfunction grade 1 with acute exacerbation, continue with Lasix --Possible acute renal failure renal azotemia from congestive heart failure exacerbation patient baseline creatinine is around 1 , improved to 1.3 from 1.4 -Mild elevation in troponin secondary to heart failure and renal failure. -Type 2 diabetes mellitus and patient was started on home regimen. -COPD with the removal of noncancerous mass from the lung patient is not in Celebrex admission this time -hyperlipidemia -Hypertension, uncontrolled, probable hypertensive urgency although cannot rule out hypertensive emergency and flash pulmonary edema. Further management as mentioned above -Depression: Patient will be started on citalopram -DVT prophylaxis with subcutaneous heparin
--- NOTE | 2019-10-23 15:16 | P.CRDCN ---
<Stephanie Ramirez - Last Filed: 10/23/19 15:14> History of Present Illness Consult date: 10/23/19 History of present illness: CHIEF COMPLAINT: CHF HISTORY OF PRESENT ILLNESS: 54 year old male who presented to the ER after being notified from his primary care physician of abnormal labs (BNP almost 12,000). Patient has a history of COPD, diabetes mellitus, hypertension, hyperlipidemia, and alcohol abuse. Patient reports drinking 24 ounces of hard s eltzers 4 times a week. Patient states he was recently treated for pneumonia by his PCP, Dr. Owens. He reports chronic lower extremity edema and wears compression stockings daily. He states his swelling has increased over the past week. Patient reports shortness of breath with conversation. He denies chest pain or pressure. He reports having a stress test 3 or 4 years ago. He reports that he does not follow with a test borer on an outpatient basis. DIAGNOSTICS: EKG reveals sinus rhythm. HR 78 Chest xray chronic changes and mild cardiomegaly with new retrocardiac left basilar acute infiltrate Laboratory data: WBC 4.3. Hemoglobin 11.8. Platelet count 158. Sodium 137. Potassium 4.2. BUN 28. Creatinine 1.44. Magnesium 1.6. BNP 11,000. Troponin 0.049. 0.057. 0.056 Current home cardiac medications include lisinopril 10 mg daily, Lasix 20 mg twice a day, Coreg 12.5 mg twice a day, and Lipitor 10 mg daily REVIEW OF SYSTEMS: CONSTITUTIONAL: Denies fever or chills. HEENT: Denies blurred vision, vision changes, or eye pain. Denies hemoptysis CARDIOVASCULAR: Denies chest pain, orthopnea, PND or palpitations. Reports lower extremity swelling. RESPIRATORY: Reports shortness of breath. GASTROINTESTINAL: Denies abdominal pain. Denies nausea or vomiting. HEMATOLOGIC: Denies bleeding disorders. GENITOURINARY: Denies any blood in urine. SKIN: Denies pruitis. Denies rash. PHYSICAL EXAM: VITAL SIGNS: Reviewed. GENERAL: Well-developed in no acute distress. HEENT: Head is normocephalic. Pupils are equal, round. Sclerae anicteric. Mucous membranes of the mouth are moist. Neck supple. No JVD or thyromegaly LUNGS: Respirations even and unlabored. Lungs with fine crackles to the bilateral bases. HEART: Regular rate and rhythm. S1 and S2 heard. ABDOMEN: Soft. Nondistended. Nontender. EXTREMITIES: Normal range of motion. No clubbing or cyanosis. Peripheral pulses intact. 3+ lower extremity edema. Compression wraps on to bilateral lower extremities. NEUROLOGIC: Awake and alert. Oriented x 3. ASSESSMENT: 1. Acute exacerbation of congestive heart failure, BNP 11,000, EF unknown, echo pending 2. Acute kidney injury 3. Mild troponin elevation, suspect secondary to CHF 4. Hypertension, uncontrolled 5. Hyperlipidemia 6. Diabetes mellitus 7. COPD 8. Alcohol abuse PLAN: -Echocardiogram ordered. Await results -Continue IV Lasix -Daily weights and accurate I&O -Monitor kidney function -Blood pressure medications adjusted by Dr. Alvarez. Continue to monitor BP. Nurse practitioner note has been reviewed by physician. Signing provider agrees with the documented findings, assessment, and plan of care. 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, difficulty with ambulation when first gets up from lying position d/t neuropathy per pt, 2018 R lung benign mass/surgically removed, L lung pleural effusion, SOB with exertion since lung surgery in 2018, recent pneumonia-two or three weeks ago, alph 1 antitrypsin deficiency, bilateral eye retinal bleeds-currently being tx with injections/unsuccessful laser surgery, scoliosis, ETOH abuse History of Any Multi-Drug Resistant Organisms: None Reported Past Surgical History: Hernia Repair, Tonsillectomy Additional Past Surgical History / Comment(s): Bilateral cataracts removed with lens implants, bilateral eye injections/unsuccessful laser for retinal bleeds, L inguinal hernia repair, R lung biopsy/mass removal, colonoscopy/benign polypectomies. Past Anesthesia/Blood Transfusion Reactions: No Reported Reaction Smoking Status: Never smoker - Past Family History Father Family Medical History: Diabetes Mellitus, Hypertension Additional Family Medical History / Comment(s): Father has anxiety and it and depression run on his side of the family. He is 83yrs old. Mother Family Medical History: Hyperlipidemia Additional Family Medical History / Comment(s): Mother has anxiety. She is 76 yrs old. Medications and Allergies Home Medications Medication Instructions Recorded Confirmed Type Carboxymethylcellulose Sodium 1 drop BOTH EYES DAILY PRN 12/08/17 10/22/19 History [Refresh Tears] Albuterol Inhaler [Ventolin Hfa 2 puff INHALATION RT-QID PRN 10/22/19 10/22/19 History Inhaler] Atorvastatin [Lipitor] 10 mg PO HS 10/22/19 10/22/19 History Carvedilol [Coreg] 12.5 mg PO BID 10/22/19 10/22/19 History Fluticasone/Umeclidin/Vilanter 1 puff INHALATION RT-DAILY 10/22/19 10/22/19 History [Trelegy Ellipta 100-62.5-25] Furosemide [Lasix] 20 mg PO BID 10/22/19 10/22/19 History Insulin Glargine,Hum.rec.anlog 20 - 40 unit SQ DAILY 10/22/19 10/22/19 History [Basaglar Kwikpen U-100] LORazepam [Ativan] 1 mg PO DAILY PRN 10/22/19 10/22/19 History Potassium Chloride ER [K-Dur 10] 10 meq PO BID 10/22/19 10/22/19 History Ubidecarenone [Co Q-10] 100 mg PO DAILY 10/22/19 10/22/19 History Vitamin B Complex 1 cap PO DAILY 10/22/19 10/22/19 History lisinopriL [Zestril] 10 mg PO DAILY 10/22/19 10/22/19 History metFORMIN HCL [metFORMIN HCL ER] 500 mg PO BID 10/22/19 10/22/19 History Allergies Allergy/AdvReac Type Severity Reaction Status Date / Time amoxicillin Allergy Rash/Hives Verified 10/22/19 13:11 Physical Exam Vitals: Vital Signs Temp Pulse Pulse Resp BP BP Pulse Ox 10/23/19 08:00 97.6 F 83 18 203/107 90 L 10/23/19 04:00 98.0 F 81 18 189/88 87 L 10/22/19 23:42 98.4 F 72 18 181/83 97 10/22/19 20:00 98.0 F 75 18 211/95 99 10/22/19 18:30 98.6 F 76 20 227/102 93 L 10/22/19 16:50 71 18 174/94 10/22/19 15:49 77 18 175/79 96 08/18/20 13:37 75 18 188/92 10/22/19 13:08 70 18 186/87 10/22/19 12:31 71 18 181/83 10/22/19 12:29 74 10/22/19 11:37 98.1 F 82 22 239/101 100 Intake and Output 10/22/19 10/23/19 10/23/19 22:59 06:59 14:59 Intake Total 10 Output Total 700 900 Balance -700 -900 10 Intake: IV 10 Invasive Line 1 10 Output: Urine 700 900 Other: Voiding Method Urinal Urinal Weight 93.5 kg Results 10/22/19 12:08 10/23/19 05:36 Cardiac Enzymes 10/22/19 10/22/19 10/22/19 Range/Units 12:08 12:08 18:01 AST 42 (17-59) U/L Troponin I 0.049 H* 0.057 H* (0.000-0.034) ng/mL 10/23/19 Range/Units 00:06 AST (17-59) U/L Troponin I 0.056 H* (0.000-0.034) ng/mL Coagulation 10/22/19 Range/Units 12:08 PT 11.1 (9.0-12.0) sec APTT 19.0 L (22.0-30.0) sec CBC 10/22/19 Range/Units 12:08 WBC 4.3 (3.8-10.6) k/uL RBC 4.27 L (4.30-5.90) m/uL Hgb 11.8 L (13.0-17.5) gm/dL Hct 37.5 L (39.0-53.0) % Plt Count 158 (150-450) k/uL Comprehensive Metabolic Panel 10/22/19 10/23/19 Range/Units 12:08 05:36 Sodium 137 137 (137-145) mmol/L Potassium 4.2 3.9 (3.5-5.1) mmol/L Chloride 102 105 (98-107) mmol/L Carbon Dioxide 23 25 (22-30) mmol/L BUN 28 H 32 H (9-20) mg/dL Creatinine 1.44 H 1.31 H (0.66-1.25) mg/dL Glucose 103 H 128 H (74-99) mg/dL Calcium 9.0 8.7 (8.4-10.2) mg/dL AST 42 (17-59) U/L ALT 26 (4-49) U/L Alkaline Phosphatase 107 (38-126) U/L Total Protein 6.9 (6.3-8.2) g/dL Albumin 3.7 (3.5-5.0) g/dL Current Medications Generic Name Dose Route Start Last Admin Trade Name Freq PRN Reason Stop Dose Admin Albuterol Sulfate 2.5 mg 10/22/19 15:46 Ventolin Nebulized INHALATION RT-QID PRN Shortness Of Breath Artificial Tears 1 drops 10/22/19 15:46 Artificial Tear Drops BOTH EYES DAILY PRN DRY EYES Aspirin 325 mg 10/23/19 12:00 10/23/19 08:07 Aspirin PO 325 mg DAILY FRANK Administration Atorvastatin Calcium 10 mg 10/22/19 21:00 10/22/19 20:01 Lipitor PO 10 mg HS FRANK Administration Budesonide/Formoterol Fumarate 2 puff 10/23/19 08:00 Symbicort 80-4.5 Mcg Inhaler INHALATION RT-BID FRANK Carvedilol 12.5 mg 10/22/19 17:30 10/23/19 06:00 Coreg PO 12.5 mg AC-BID FRANK Administration Citalopram Hydrobromide 10 mg 10/23/19 09:00 10/23/19 08:04 Celexa PO 10 mg DAILY FRANK Administration Furosemide 40 mg 10/23/19 00:00 10/23/19 08:07 Lasix IV 40 mg Q12H FRANK Administration Heparin Sodium (Porcine) 5,000 unit 10/22/19 16:00 10/23/19 08:05 Heparin SQ 5,000 unit Q8HR FRANK Administration Hydralazine HCl 10 mg 10/22/19 22:41 10/23/19 08:07 Apresoline IVP 10 mg Q4HR PRN Administration Blood Pressure - High Sodium Chloride 1,000 mls @ 20 mls/hr 10/22/19 13:15 10/22/19 20:01 Saline 0.9% IV Not Given .Q24H FRANK Insulin Aspart 0 unit 10/23/19 07:30 10/23/19 08:18 Novolog SQ Not Given ACHS [facility] Protocol Insulin Detemir 25 unit 10/23/19 09:00 10/23/19 08:15 Levemir SQ 25 unit DAILY FRANK Administration Ipratropium [place] 0.5 mg 10/23/19 08:00 Atrovent Nebulized INHALATION RT-QID FRANK Lisinopril 10 mg 10/23/19 09:00 10/23/19 08:05 Zestril PO 10 mg DAILY FRANK Administration Lorazepam 1 mg 10/22/19 15:46 10/22/19 22:27 Ativan PO 1 mg DAILY PRN Administration Anxiety Potassium Chloride 10 meq 10/22/19 21:00 10/23/19 08:05 K-Dur 10 PO 10 meq BID FRANK Administration Intake and Output 10/22/19 10/23/19 10/23/19 22:59 06:59 14:59 Intake Total 10 Output Total 700 900 Balance -700 -900 10 Intake: IV 10 Invasive Line 1 10 Output: Urine 700 900 Other: Voiding Method Urinal Urinal Weight 93.5 kg 10/22/19 12:08 10/23/19 05:36 <Clemente Alvarez - Last Filed: 10/23/19 16:24> History of Present Illness History of present illness: Agree with assessment and plan as above. Patient with uncontrolled hypertension with systolics from 190s to 200s for years. Additionally with history of diabetes however well-controlled on insulin, retrocardiac mass status post resection 2 years ago, COPD and prior alcoholic with recent only 2-3 drinks a couple times a week. He does admit to chronic lower extremity edema which has mainly been an issue since his lung surgery 2 years ago. He has tried to wear compression stockings without much benefit. Worsening of his lower extremity edema to into his thighs as well as orthopnea and dyspnea on exertion as well as elevated BNP all of which is consistent with acute diastolic heart failure. Echo today showed normal ejection fraction with ejection fraction 55-60%, aortic root and ascending aorta dilated 4.2 cm, severe left ventricular hypertrophy with thickness of 2.4 cm. LVH may be related to long-standing uncontrolled hypertension however also possibility of infiltrative disease. Likely workup possible infiltrative disease as an outpatient. Monitor aortic root, elevated creatinine and we'll not perform a CAT scan angio at this time. Lisinopril increased to 40 mg daily, Coreg increased to 25 mg daily and increase Lasix. Attempt to decrease blood pressure 25% in the next 24 hours. Discussed need for aggressive blood pressure management. Long-term prognosis guarded. Physical Exam Vitals: Vital Signs Temp Pulse Pulse Resp BP BP Pulse Ox 10/23/19 16:05 84 16 97 10/23/19 15:56 97 F L 83 18 176/85 97 10/23/19 12:43 98 F 80 18 191/85 93 L 10/23/19 12:31 88 10/23/19 12:27 82 18 10/23/19 12:20 87 10/23/19 10:40 98.6 F 82 18 210/94 87 L 10/23/19 09:11 88 10/23/19 09:06 95 10/23/19 08:59 84 10/23/19 08:01 83 18 10/23/19 08:00 97.6 F 83 18 203/107 90 L 10/23/19 04:00 98.0 F 81 18 189/88 87 L 10/22/19 23:42 98.4 F 72 18 181/83 97 10/22/19 20:00 98.0 F 75 18 211/95 99 10/22/19 18:30 98.6 F 76 20 227/102 93 L 10/22/19 16:50 71 18 174/94 Intake and Output 10/23/19 10/23/19 10/23/19 06:59 14:59 22:59 Intake Total 320 10 Output Total 112 195 5664 Balance -900 -230 -1490 Intake: IV 20 10 Invasive Line 1 20 10 Oral 300 Output: Urine 404 735 4742 Other: Voiding Method Urinal Urinal Urinal Weight 93.5 kg 93.5 kg Results 10/22/19 12:08 10/23/19 05:36 Cardiac Enzymes 10/22/19 10/23/19 Range/Units 18:01 00:06 Troponin I 0.057 H* 0.056 H* (0.000-0.034) ng/mL Comprehensive Metabolic Panel 10/23/19 Range/Units 05:36 Sodium 137 (137-145) mmol/L Potassium 3.9 (3.5-5.1) mmol/L Chloride 105 (98-107) mmol/L Carbon Dioxide 25 (22-30) mmol/L BUN 32 H (9-20) mg/dL Creatinine 1.31 H (0.66-1.25) mg/dL Glucose 128 H (74-99) mg/dL Calcium 8.7 (8.4-10.2) mg/dL Current Medications Generic Name Dose Route Start Last Admin Trade Name Freq PRN Reason Stop Dose Admin Acetaminophen 650 mg 10/23/19 13:05 Tylenol Tab PO Q6HR PRN Fever and/ or Pain Albuterol Sulfate 2.5 mg 10/22/19 15:46 Ventolin Nebulized INHALATION RT-QID PRN Shortness Of Breath Albuterol/Ipratropium 3 ml 10/23/19 11:21 10/23/19 16:05 Duoneb 0.5 Mg-3 Mg/3 Ml Soln INHALATION 3 ml RT-QID PRN Administration Shortness Of Breath Or Wheezing Artificial Tears 1 drops 10/22/19 15:46 Artificial Tear Drops BOTH EYES DAILY PRN DRY EYES Aspirin 325 mg 10/23/19 12:00 10/23/19 08:07 Aspirin PO 325 mg DAILY FRANK Administration Atorvastatin Calcium 10 mg 10/22/19 21:00 10/22/19 20:01 Lipitor PO 10 mg HS FRANK Administration Budesonide/Formoterol Fumarate 2 puff 10/23/19 08:00 10/23/19 08:58 Symbicort 80-4.5 Mcg Inhaler INHALATION 2 puff RT-BID FRANK Administration Carvedilol 25 mg 10/23/19 11:00 10/23/19 11:06 Coreg PO 12.5 mg AC-BID FRANK Administration Citalopram Hydrobromide 10 mg 10/23/19 09:00 10/23/19 08:04 Celexa PO 10 mg DAILY FRANK Administration Furosemide 40 mg 10/24/19 06:00 Lasix IV 0600 FRANK Furosemide 40 mg 10/23/19 12:00 10/23/19 11:06 Lasix IV 40 mg 1200 FRANK Administration Heparin Sodium (Porcine) 5,000 unit 10/22/19 16:00 10/23/19 08:05 Heparin SQ 5,000 unit Q8HR FRANK Administration Hydralazine HCl 10 mg 10/22/19 22:41 10/23/19 08:07 Apresoline IVP 10 mg Q4HR PRN Administration Blood Pressure - High Sodium Chloride 1,000 mls @ 20 mls/hr 10/22/19 13:15 10/23/19 12:58 Saline 0.9% IV Not Given .Q24H [facility] Insulin Aspart 0 unit 10/23/19 07:30 10/23/19 12:57 Novolog SQ Not Given ACHS [facility] Protocol Insulin Detemir 25 unit 10/23/19 09:00 10/23/19 08:15 Levemir SQ 25 unit DAILY FRANK Administration Ipratropium [place] 0.5 mg 10/23/19 08:00 10/23/19 16:04 Atrovent Nebulized INHALATION Not Given RT-QID [facility] Lisinopril 40 mg 10/24/19 09:00 Zestril PO DAILY FRANK Lorazepam 1 mg 10/22/19 15:46 10/22/19 22:27 Ativan PO 1 mg DAILY PRN Administration Anxiety Potassium Chloride 10 meq 10/22/19 21:00 10/23/19 08:05 K-Dur 10 PO 10 meq BID FRANK Administration Intake and Output 10/23/19 10/23/19 10/23/19 06:59 14:59 22:59 Intake Total 320 10 Output Total 575 630 6526 Balance -900 230 -1490 Intake: IV 20 10 Invasive Line 1 20 10 Oral 300 Output: Urine 080 317 4975 Other: Voiding Method Urinal Urinal Urinal Weight 93.5 kg 93.5 kg Patient Weight 10/24/19 06:59 Weight 93.5 kg 10/22/19 12:08 10/23/19 05:36
[2019-10-23] MEDS: IPRATROPIUM-ALBUTEROL 3 ML NEB INHALATION PRN ×2 (16:05→19:54)
[2019-10-23 16:49] LABS: Glucose,Whole Blood 133 mg/dL (75-99)
[2019-10-23 21:11] LABS: Glucose,Whole Blood 179 mg/dL (75-99)
[2019-10-23] MEDS: ATORVASTATIN 10 MG TAB PO SCH (21:21)
[2019-10-23] MEDS: LORazepam 1 MG TAB PO PRN (23:02)
[2019-10-24 06:13] LABS: Glucose,Whole Blood 122 mg/dL (75-99)
[2019-10-24] MEDS: INSULIN ASPART (NovoLOG) 100 UNIT/ML VIAL SQ SCH ×4 (06:22→21:04)
[2019-10-24] MEDS: carvediloL 12.5 MG TAB PO SCH ×2 (06:25→16:11)
[2019-10-24] MEDS: FUROSEMIDE 10 MG/ML 4 ML VIAL IV SCH ×2 (06:25→12:01)
[2019-10-24 06:41] LABS: Calcium 8.3 mg/dL (8.4-10.2); Potassium 3.9 mmol/L (3.5-5.1)
[2019-10-24] MEDS: lisinopriL 20 MG TAB PO SCH (08:26)
[2019-10-24] MEDS: POTASSIUM CHLORIDE ER 10 MEQ TAB.ER.PRT PO SCH ×2 (08:26→21:08)
[2019-10-24] MEDS: CITALOPRAM HYDROBROMIDE 10 MG TAB PO SCH (08:26)
[2019-10-24] MEDS: ASPIRIN 325 MG TAB PO SCH (08:26)
[2019-10-24] MEDS: HEPARIN SODIUM,PORCINE 5,000 UNIT/ML 1 ML VIAL SQ SCH ×3 (08:27→23:57)
[2019-10-24] MEDS: INSULIN DETEMIR (LEVEMIR) 100 UNIT/ML SYR SQ SCH (08:27)
[2019-10-24 08:32] LABS: Glucose,Whole Blood 148 mg/dL (75-99)
[2019-10-24] MEDS: SYMBICORT 80-4.5 MCG INHALER INHALATION SCH (09:35)
[2019-10-24] MEDS: IPRATROPIUM 0.5 MG/2.5 ML NEBU INHALATION SCH (09:35)
[2019-10-24 11:53] LABS: Glucose,Whole Blood 114 mg/dL (75-99)
[2019-10-24] MEDS: SODIUM CHLORIDE 0.9% 1,000 ML IV SCH (12:31)
[2019-10-24] MEDS: IPRATROPIUM-ALBUTEROL 3 ML NEB INHALATION SCH ×3 (12:37→21:10)
--- NOTE | 2019-10-24 13:56 | P.PN ---
Subjective Patient is admitted for the possible volume overload and CHF exacerbation patient is to be on Lasix patient blood pressure was very high with the sys tolics about 200 because of which patient was started on Coreg, patient lisinopril dose was increased patient is being continued on diuretics patient's swelling did improve JVD did improve compared to yesterday. Patient's serum creatinine did improve from 1.4-1.31. Patient had an echo which showed normal ejection fraction but does have grade 1 diastolic dysfunction 10/24/2019 Patient's serum creatinine remains stable patient with continued IV Lasix today still has some pedal edema Constitutional: Denied any fatigue denied any fever. Cardio vascular: denied any chest pain, palpitations Gastrointestinal denied any nausea vomiting Pulmonary: Still complaining of shortness of breath Neurologic denied any new focal deficits All inpatient medications were reviewed and appropriate changes in these medications as dictated in the interval history and assessment and plan. Objective - Vital Signs Vital signs: Vital Signs Temp 98.6 F 10/24/19 11:59 Pulse 64 10/24/19 12:37 Resp 18 10/24/19 12:00 BP 163/82 10/24/19 11:59 Pulse Ox 94 L 10/24/19 11:59 Intake & Output 10/23/19 10/24/19 10/24/19 18:59 06:59 18:59 Intake Total 630 250 630 Output Total 0 1275 Balance -1420 250 -645 Weight 93.5 kg 93 kg Intake: IV 30 10 30 Invasive Line 1 30 10 30 Oral 600 240 600 Output: Urine 0 1275 Other: Voiding Method Urinal Urinal Urinal - Exam PHYSICAL EXAMINATION: GENERAL: The patient is alert and oriented x3, not in any acute distress. Well developed, well nourished. HEENT: Pupils are round and equally reacting to light. EOMI. No scleral icterus. No conjunctival pallor. Normocephalic, atraumatic. No pharyngeal erythema. No thyromegaly. CARDIOVASCULAR: S1 and S2 present. No murmurs, rubs, or gallops. JVD improved PULMONARY: Chest is clear to auscultation, no wheezing or crackles. ABDOMEN: Soft, nontender, nondistended, normoactive bowel sounds. No palpable organomegaly. MUSCULOSKELETAL: No joint swelling or deformity. EXTREMITIES: No cyanosis, clubbing, or pedal edema improved compared to yester day but still has significant edema NEUROLOGICAL: Gross neurological examination did not reveal any focal deficits. SKIN: No rashes. - Labs CBC & Chem 7: 10/22/19 12:08 10/24/19 06:00 Labs: Abnormal Lab Results - Last 24 Hours (Table) 10/23/19 10/23/19 10/24/19 Range/Units 16:41 21:09 06:00 BUN 34 H (9-20) mg/dL Creatinine 1.43 H (0.66-1.25) mg/dL Glucose 111 H (74-99) mg/dL POC Glucose (mg/dL) 133 H 179 H (75-99) mg/dL Calcium 8.3 L (8.4-10.2) mg/dL 10/24/19 10/24/19 10/24/19 Range/Units 06:11 08:30 11:52 BUN (9-20) mg/dL Creatinine (0.66-1.25) mg/dL Glucose (74-99) mg/dL POC Glucose (mg/dL) 122 H 148 H 114 H (75-99) mg/dL Calcium (8.4-10.2) mg/dL Assessment and Plan Plan: -congestive heart failure, appears to have systolic dysfunction grade 1 with acute exacerbation, continue with Lasix --Possible acute renal failure renal azotemia from congestive heart failure exacerbation patient baseline creatinine is around 1 , presently around 1.4 and fairly stable at this level -Mild elevation in troponin secondary to heart failure and renal failure. -Type 2 diabetes mellitus and patient was started on home regimen. -COPD with the removal of noncancerous mass from the lung patient is not in Celebrex admission this time -hyperlipidemia -Hypertension, uncontrolled, probable hypertensive urgency although cannot rule out hypertensive emergency and flash pulmonary edema. Further management as mentioned above -Depression: Patient is on citalopram -DVT prophylaxis with subcutaneous heparin Possibility of discharge tomorrow
--- NOTE | 2019-10-24 14:24 | P.PN ---
Subjective Progress Note Date: 10/24/19 CHIEF COMPLAINT: CHF HISTORY OF PRESENT ILLNESS: Patient examined at the bedside. Patient reports shortness of breath. Denies chest pain. Remains on IV lasix. Blood pressure improved today. Creatinine remains stable. PHYSICAL EXAM: VITAL SIGNS: Reviewed. GENERAL: Well-developed in no acute distress. HEENT: Head is normocephalic. Pupils are equal, round. Sclerae anicteric. Mucous membranes of the mouth are moist. Neck supple. No JVD or thyromegaly LUNGS: Respirations even and unlabored. Lungs with fine crackles to the bilateral bases. HEART: Regular rate and rhythm. S1 and S2 heard. ABDOMEN: Soft. Nondistended. Nontender. EXTREMITIES: Normal range of motion. No clubbing or cyanosis. Peripheral pulses intact. 2-3+ lower extremity edema. Compression wraps on to bilateral lower extremities. NEUROLOGIC: Awake and alert. Oriented x 3. ASSESSMENT: 1. Acute exacerbation of congestive heart failure, BNP 11,000 2. Acute kidney injury 3. Mild troponin elevation, suspect secondary to CHF 4. Hypertension, uncontrolled 5. Hyperlipidemia 6. Diabetes mellitus 7. COPD 8. Alcohol abuse PLAN: -Continue IV Lasix -Daily weights and accurate I&O -Monitor kidney function -Add norvasc 10mg daily Nurse practitioner note has been reviewed by physician. Signing provider agrees with the documented findings, assessment, and plan of care. Objective - Vital Signs Vital signs: Vital Signs Temp 98.6 F 10/24/19 11:59 Pulse 64 10/24/19 12:37 Resp 18 10/24/19 12:00 BP 163/82 10/24/19 11:59 Pulse Ox 94 L 10/24/19 11:59 Intake & Output 10/23/19 10/24/19 10/24/19 18:59 06:59 18:59 Intake Total 630 250 630 Output Total 2050 1275 Balance -1420 250 -645 Weight 93.5 kg 93 kg Intake: IV 30 10 30 Invasive Line 1 30 10 30 Oral 600 240 600 Output: Urine 0 1275 Other: Voiding Method Urinal Urinal Urinal - Labs CBC & Chem 7: 10/22/19 12:08 10/24/19 06:00 Labs: Abnormal Lab Results - Last 24 Hours (Table) 10/23/19 10/23/19 10/24/19 Range/Units 16:41 21:09 06:00 BUN 34 H (9-20) mg/dL Creatinine 1.43 H (0.66-1.25) mg/dL Glucose 111 H (74-99) mg/dL POC Glucose (mg/dL) 133 H 179 H (75-99) mg/dL Calcium 8.3 L (8.4-10.2) mg/dL 10/24/19 10/24/19 10/24/19 Range/Units 06:11 08:30 11:52 BUN (9-20) mg/dL Creatinine (0.66-1.25) mg/dL Glucose (74-99) mg/dL POC Glucose (mg/dL) 122 H 148 H 114 H (75-99) mg/dL Calcium (8.4-10.2) mg/dL
[2019-10-24] MEDS: amLODIPine 10 MG TAB PO SCH (16:11)
[2019-10-24 17:28] LABS: Glucose,Whole Blood 92 mg/dL (75-99)
--- NOTE | 2019-10-24 19:17 | US ---
EXAMINATION TYPE: US kidneys/renal and bladder DATE OF EXAM: 10/24/2019 COMPARISON: NONE CLINICAL HISTORY: RF. RF per order. Hx HTN and hyperlipidemia per patient. EXAM MEASUREMENTS: Right Kidney: 11.5 x 5.3 x 5.2 cm Left Kidney: 12.7 x 6.5 x 6.0 cm Right Kidney: No hydronephrosis or masses seen. Cortex appears thin. Left Kidney: No hydronephrosis or masses seen. Measures slightly enlarged. Bladder: Appears to be anechoic. Not fully distended. Bilateral Jets seen: Yes -Incidental finding: Spleen appears enlarged measuring 19.9 cm in length. IMPRESSION: No evidence of renal mass or obstruction. Splenomegaly is noted.
[2019-10-24 20:15] LABS: Amorphous Sediment,Urine Rare /hpf; Appearance,Urine Clear (Clear); Bilirubin,Urine Negative (Negative); Blood,Urine Trace (Negative); Color,Urine Light Yellow; Glucose,Urine (UA) Negative (Negative); Hyaline Casts,Urine 11 /lpf (0-2); Ketones,Urine Negative (Negative); Leukocyte Esterase,Urine Negative (Negative); Mucus,Urine Rare /hpf; Nitrite,Urine Negative (Negative); Protein,Urine 2+ (Negative); RBC,Urine 3 /hpf (0-5); Specific Gravity,Urine 1.011 (1.001-1.035); Urobilinogen,Urine <2.0 mg/dL (<2.0); WBC,Urine 1 /hpf (0-5)
--- NOTE | 2019-10-24 20:44 | CONS ---
CONSULTATION REASON FOR CONSULT: Renal failure. HISTORY OF PRESENT ILLNESS: The patient is a 54-year-old male who was admitted to the hospital on 10/22/2019 with worsening lower extremity edema, some shortness of breath and weight gain. The patient states that he has had worsening swelling in his legs over the past few weeks, but he believes it started 2 years ago after his surgery for removal of a lung mass which was not cancer. The patient denies any prior diagnosis of CHF. He denies any prior history of kidney diseases. There is no history of use of NSAIDs. The patient has had good urine output. Patient's serum creatinine was 1.4 today. Yesterday it was 1.3. Prior to that it was 1.4. Review of previous lab shows creatinine of 1.0 on 06/26/2018. Blood pressure has not been low; in fact, it is on the higher side. The patient was on KIRILL inhibitors at home prior to admission. PAST MEDICAL HISTORY: Hypertension, COPD, type 2 diabetes, hyperlipidemia, pneumonia, pleural effusion, neuropathy, right lung mass, status post surgical excision, history of EtOH abuse, scoliosis, retinal bleeding. PAST SURGICAL HISTORY: Hernia repair, tonsillectomy, cataract surgery, laser surgery for retinal bleeding, left inguinal hernia repair, right lung biopsy and excision of mass, colonoscopy, polypectomy. SOCIAL HISTORY: Negative for smoking, drug abuse or alcohol abuse. MEDICATIONS: Medications include Lipitor, Coreg, Lasix, Ativan, potassium, Zestril, vitamin B, metformin. ALLERGIES: ALLERGIES include AMOXICILLIN. REVIEW OF SYSTEMS: As per HPI. Other systems negative. PHYSICAL EXAMINATION: Patient is comfortable, awake, alert, oriented x3, not in any acute distress. Blood pressure is 153/82, heart rate 52 per minute. He is afebrile. EXAMINATION OF THE HEART: S1 and S2. EXAMINATION OF LUNGS: Bilateral breath sounds are heard. ABDOMEN: Soft, non-tender. Examination of lower extremities shows edema 2+ bilaterally. TECHNICAL SUPPORT INTERN exam is grossly intact. LABS: Labs show sodium 137, potassium 3.9, chloride 105, BUN 34, creatinine 1.43, calcium 8.3. UA shows 1+ protein on 09/02/2014. I do not have a new urinalysis. Echocardiogram shows ejection fraction of 55% to 60%, left atrium mildly dilated. ASSESSMENT: 1. Chronic kidney disease, stage 3, mostly associated with diabetic nephropathy and nephrosclerosis. Will repeat a urinalysis and check ultrasound of the kidneys. There may be a component of acute kidney injury, mostly cardiorenal. 2. Acute kidney injury, cardiorenal. Previous creatinine 1.0 on 06/26/2018. Continue to diurese patient. May continue with the KIRILL inhibitors as well for now. Check daily weights. Monitor urine output. 3. Dyslipidemia. 4. Type 2 diabetes with history of retinopathy and neuropathy, maintained on KIRILL inhibitors. 5. CHF, acute diastolic 6. COPD PLAN: Check urinalysis. Continue with KIRILL inhibitors. Continue current dose of Lasix. Repeat labs in a.m. Check ultrasound of the kidneys. Patient will need followup as outpatient for CKD. Thank you for this consultation. Will continue to follow the patient with you during his hospitalization. MMZACKARYL / IJN: [id number] / MTDD
[2019-10-24 20:56] LABS: Glucose,Whole Blood 121 mg/dL (75-99)
[2019-10-24] MEDS: ATORVASTATIN 10 MG TAB PO SCH (21:08)
[2019-10-24] MEDS: SYMBICORT 160-4.5 MCG INHALER INHALATION SCH (21:11)
[2019-10-24] MEDS: LORazepam 1 MG TAB PO PRN (23:57)
[2019-10-25] MEDS: FUROSEMIDE 10 MG/ML 4 ML VIAL IV SCH ×2 (05:48→12:20)
[2019-10-25 06:06] LABS: Glucose,Whole Blood 109 mg/dL (75-99)
[2019-10-25] MEDS: INSULIN ASPART (NovoLOG) 100 UNIT/ML VIAL SQ SCH ×2 (06:56→12:22)
[2019-10-25] MEDS: carvediloL 12.5 MG TAB PO SCH (06:57)
[2019-10-25 07:37] LABS: Potassium 4.3 mmol/L (3.5-5.1)
[2019-10-25 07:38] LABS: Calcium 8.7 mg/dL (8.4-10.2)
[2019-10-25] MEDS: SYMBICORT 160-4.5 MCG INHALER INHALATION SCH (08:20)
[2019-10-25] MEDS: IPRATROPIUM-ALBUTEROL 3 ML NEB INHALATION SCH ×2 (08:20→10:49)
[2019-10-25] MEDS: POTASSIUM CHLORIDE ER 10 MEQ TAB.ER.PRT PO SCH (09:26)
[2019-10-25] MEDS: ASPIRIN 325 MG TAB PO SCH (09:26)
[2019-10-25] MEDS: lisinopriL 20 MG TAB PO SCH (09:26)
[2019-10-25] MEDS: HEPARIN SODIUM,PORCINE 5,000 UNIT/ML 1 ML VIAL SQ SCH (09:26)
[2019-10-25] MEDS: amLODIPine 10 MG TAB PO SCH (09:26)
[2019-10-25] MEDS: INSULIN DETEMIR (LEVEMIR) 100 UNIT/ML SYR SQ SCH (09:26)
[2019-10-25] MEDS: CITALOPRAM HYDROBROMIDE 10 MG TAB PO SCH (10:38)
[2019-10-25 10:59] VITALS: RESP 64
[2019-10-25 11:06] VITALS: BP 147/74; PULSE 65; TEMP 97.6
[2019-10-25 11:50] LABS: Glucose,Whole Blood 133 mg/dL (75-99)
--- NOTE | 2019-10-25 12:30 | PN ---
PROGRESS NOTE The patient is seen for followup for acute kidney injury associated with CHF exacerbation. The patient was admitted with shortness of breath and volume overload. He is currently being diuresed. Lasix is at 40 mg IV twice a day. Serum creatinine is staying at about 1.3-1.4 mg/dL. Previous creatinine has been at about 1.0 on 06/26/2018. PHYSICAL EXAMINATION: On examination today patient is comfortable. Blood pressure is 147/74, heart rate 65 per minute, he is afebrile. Examination of the heart S1, S2. Examination of the lungs, bilateral breath sounds are heard. Abdomen is soft, nontender. Examination of lower extremities shows edema 2+ bilaterally. WIRE ROLLER exam grossly intact. LABS: Show sodium 139, potassium 4.3, chloride 102, BUN 31, creatinine 1.38. ASSESSMENT: 1. Acute kidney injury, mostly cardiorenal, currently stable. Continue with current dose of Lasix. 2. Chronic kidney disease mostly diabetic kidney disease. UA shows 2+ protein. Previous creatinine has been 1 on 06/26/2018. The patient will need outpatient followup. 3. Congestive heart failure, acute on top of chronic, mostly diastolic. 4. Hypertension. Controlled. PLAN: Patient will need outpatient followup. Continue with KIRILL inhibitors. Continue to diurese patient. He is advised regarding salt and fluid restriction. Ultrasound was unremarkable. Ultrasound of the kidneys is unremarkable. MMODL / IJN: [id number] /
--- NOTE | 2019-10-25 15:57 | P.DS ---
Providers Date of admission: 10/22/19 13:08 Expected date of discharge: 10/25/19 Attending physician: Mirlande Vail Consults: 10/22/19 13:08 Consult Physician Routine Consulting Provider: Edison Joyce Consult Reason/Comments: new onset heart failure Do you want consulting provider notified?: Yes 10/23/19 11:08 Consult Physician Routine Consulting Provider: Diana Du Consult Reason/Comments: JEREMIE Do you want consulting provider notified?: Yes Primary care physician: Roman Bell Hospital Course: Final diagnosis -congestive heart failure, appears to have systolic dysfunction grade 1 with acute exacerbation -Possible acute renal failure prerenal azotemia from congestive heart failure exacerbation -Mild elevation in troponin secondary to heart failure and renal failure. -Type 2 diabetes mellitus -COPD with the removal of noncancerous mass from the lung -hyperlipidemia -Hypertension, uncontrolled, probable hypertensive urgency although cannot rule out hypertensive emergency and flash pulmonary edema -Depression -DVT prophylaxis Discharge disposition Patient is being discharged in a stable condition with guarded prognosis to home. Patient will follow-up with cardiology in the outpatient setting upon discharge. Patient will also follow-up with Dr. Owens upon discharge. Total time taken is greater than 35 minutes. History of present illness This is a 54-year-old male who was recently admitted with possible volume overload and CHF exacerbation along with extremely high blood pressure and was being closely monitored. She was evaluated by cardiology along with nephrology as he also had some acute renal failure. Creatinine trending down and a prescription was provided for repeat BMP in the outpatient setting. Patient was maintained on IV Lasix and will transition to oral Lasix in the outpatient setting. Patient to continue monitoring blood sugars and hold metformin until primary care follow-up. Patient was initiated on Norvasc 10 mg daily and instructed to monitor blood pressure and keep a diary for outpatient follow-up. Currently no reports of chest pain, shortness of breath, or palpitations. Patient is afebrile. No reports of nausea or vomiting and patient is tolerating diet. Patient will be discharged home today. On exam vital signs are stable. Temp is 97.6F, pulse is 65, respirations are 18, blood pressure is 147/74, oxygen saturation is 96 % on room air. Cardio S1, S2 are muffled. Respiratory system shows diminished breath sounds at the bases with no wheezing or rhonchi noted. Abdomen is soft and obese, and nontender. Nervous system shows no focal deficits. Please refer to medication reconciliation sheet for a list of medications. Patient Condition at Discharge: Fair Plan - Discharge Summary Discharge Rx Participant: No New Discharge Prescriptions: New Aspirin 81 mg PO DAILY 30 Days #30 chewable Citalopram Hydrobromide [CeleXA] 10 mg PO DAILY 30 Days #30 tab carvediloL [Coreg*] 25 mg PO AC-BID 30 Days #60 tab Furosemide [Lasix] 40 mg PO BID 30 Days #60 tablet amLODIPine [Norvasc] 10 mg PO DAILY 30 Days #30 tab Budesonide-Formot 160-4.5 Mcg [Symbicort 160-4.5 Mcg Inhaler] 2 puff INHALATION RT-BID 30 Days #1 puff lisinopriL [Zestril] 40 mg PO DAILY 30 Days #30 tab Continue Carboxymethylcellulose Sodium [Refresh Tears] 1 drop BOTH EYES DAILY PRN PRN Reason: DRY EYES LORazepam [Ativan] 1 mg PO DAILY PRN PRN Reason: Anxiety Fluticasone/Umeclidin/Vilanter [Trelegy Ellipta 100-62.5-25] 1 puff INHALATION RT-DAILY Atorvastatin [Lipitor] 10 mg PO HS Albuterol Inhaler [Ventolin Hfa Inhaler] 2 puff INHALATION RT-QID PRN PRN Reason: Shortness Of Breath Vitamin B Complex 1 cap PO DAILY Ubidecarenone [Co Q-10] 100 mg PO DAILY Changed Insulin Glargine,Hum.rec.anlog [Basaglar Kwikpen U-100] 25 unit SQ DAILY #0 Discontinued metFORMIN HCL [metFORMIN HCL ER] 500 mg PO BID Potassium Chloride ER [K-Dur 10] 10 meq PO BID Furosemide [Lasix] 20 mg PO BID Carvedilol [Coreg] 12.5 mg PO BID lisinopriL [Zestril] 10 mg PO DAILY Discharge Medication List Carboxymethylcellulose Sodium [Refresh Tears] 1 drop BOTH EYES DAILY PRN 12/08/17 [History] Albuterol Inhaler [Ventolin Hfa Inhaler] 2 puff INHALATION RT-QID PRN 10/22/19 [History] Atorvastatin [Lipitor] 10 mg PO HS 10/22/19 [History] Fluticasone/Umeclidin/Vilanter [Trelegy Ellipta 100-62.5-25] 1 puff INHALATION RT-DAILY 10/22/19 [History] LORazepam [Ativan] 1 mg PO DAILY PRN 10/22/19 [History] Ubidecarenone [Co Q-10] 100 mg PO DAILY 10/22/19 [History] Vitamin B Complex 1 cap PO DAILY 10/22/19 [History] Aspirin 81 mg PO DAILY 30 Days #30 chewable 10/25/19 [Rx] Budesonide-Formot 160-4.5 Mcg [Symbicort 160-4.5 Mcg Inhaler] 2 puff INHALATION RT-BID 30 Days #1 puff 10/25/19 [Rx] Citalopram Hydrobromide [CeleXA] 10 mg PO DAILY 30 Days #30 tab 10/25/19 [Rx] Furosemide [Lasix] 40 mg PO BID 30 Days #60 tablet 10/25/19 [Rx] Insulin Glargine,Hum.rec.anlog [Basaglar Kwikpen U-100] 25 unit SQ DAILY #0 10/25/19 [Rx] amLODIPine [Norvasc] 10 mg PO DAILY 30 Days #30 tab 10/25/19 [Rx] carvediloL [Coreg*] 25 mg PO AC-BID 30 Days #60 tab 10/25/19 [Rx] lisinopriL [Zestril] 40 mg PO DAILY 30 Days #30 tab 10/25/19 [Rx] Follow up Appointment(s)/Referral(s): Arabella Owens MD [Primary Care Provider] - 10/30/19 1:50 pm Clemente Alvarez DO [STAFF PHYSICIAN] - 1 Week (office will call you with an appointment.) Ambulatory/Diagnostic Orders: Basic Metabolic Panel [LAB.AMB] Time Frame: 2 Days, Location: None Selected Patient Instructions/Handouts: Heart Failure (DC) Activity/Diet/Wound Care/Special Instructions: Activity Limited until follow-up Follow up with cardiology in the outpatient setting Follow-up with primary care provider upon discharge Repeat labs in 2-3 days Continue monitoring blood sugars before meals at bedtime and keep a diary for primary care follow-up Continue to hold metformin until primary care follow-up Continue to monitor blood pressure and keep a diary of blood pressure readings for primary care follow-up Continue heart healthy diet Discharge Disposition: HOME SELF-CARE
--- NOTE | 2019-10-28 12:08 | CDI ---
Documentation Clarification Form Date: 10/28/19 From: Tammy Morocho CCS Phone: If you have a question about this query, please contact Florencia Pillai, Associate Application Developer at [phone] between 8am and 5pm. Admit Date: 10/22/19 Discharge Date: 10/25/19 Patient Name: [id number] Visit Number: Zammit, Hussein ATTENTION: The Clinical Documentation Specialists (CDI) and [facility] Coding Staff appreciate your assistance in clarifying documentation. Please respond to the clarification below the line at the bottom and electronically sign. The CDI & [facility] Coding staff will review the response and follow-up if needed. Please note: Queries are made part of the Legal Health Record. If you have any questions, please contact the author of this message via ITS. Dear Dr. Tobin, Conflicting documentation has been found in the medical record: ECHO, Consult, PNs document diastolic dysfunction, acute diastolic heart failure. DS, PNs 10/22, 10/23 document systolic dysfunction grade 1 acute exacerbation. History/Risk Factors: HTN, CKD, DM, COPD Clinical Indicators: Acute exacerbation CHF ECHO: There is severe concentric left ventricular hypertrophy.Overall left ventricular systolic function is normal with, an EF between 55 - 60 %.Normal LAP Grade 1 Diastolic Dysfunction. The right ventricle is normal in size.The right ventricular systolic function is normal. Treatment: Lasix 40 mg IV Consult: Antonio In your opinion, what is the most clinically appropriate diagnosis for this patient? Acute/Chronic Systolic CHF Acute/Chronic Diastolic CHF Acuet/Chronic Combined Diastolic/Systolic CHF Acute Systolic CHF Acute Diastolic CHF Acute Combined Diastolic/Systolic CHF Other explanation of clinical findings Unable to determine (no explanation for clinical findings) Acute/Chronic Diastolic CHF. This query is not necessary this was already dictated a note MTDD
== END 2019-10-25 15:20 | disposition home or self-care (01) | DRG 291 ==
LOC: EC 11:37 → 3SCARD 13:08
PROVIDERS: ADMIT Hospitalist; ATTEND Hospitalist
DX: I13.0 Hypertensive heart and chronic kidney disease with heart failure and stage 1 through stage 4 chronic kidney disease, or unspecified chronic kidney disease (principal); I50.33 Acute on chronic diastolic (congestive) heart failure; N17.9 Acute kidney failure, unspecified; I16.1 Hypertensive emergency; E11.42 Type 2 diabetes mellitus with diabetic polyneuropathy; E11.319 Type 2 diabetes mellitus with unspecified diabetic retinopathy without macular edema; N18.3 Chronic kidney disease, stage 3 (moderate); E11.22 Type 2 diabetes mellitus with diabetic chronic kidney disease; J44.9 Chronic obstructive pulmonary disease, unspecified; Z79.4 Long term (current) use of insulin; F32.9 Major depressive disorder, single episode, unspecified; F41.9 Anxiety disorder, unspecified; E78.5 Hyperlipidemia, unspecified; R79.89 Other specified abnormal findings of blood chemistry; F10.10 Alcohol abuse, uncomplicated; M41.9 Scoliosis, unspecified; I16.0 Hypertensive urgency; E66.9 Obesity, unspecified; Z68.33 Body mass index [BMI] 33.0-33.9, adult; Z79.899 Other long term (current) drug therapy; Z87.01 Personal history of pneumonia (recurrent); Z98.42 Cataract extraction status, left eye; Z98.41 Cataract extraction status, right eye; Z96.1 Presence of intraocular lens; Z98.890 Other specified postprocedural states; Z90.2 Acquired absence of lung [part of]; Z88.0 Allergy status to penicillin; Z83.3 Family history of diabetes mellitus; Z82.49 Family history of ischemic heart disease and other diseases of the circulatory system; Z81.8 Family history of other mental and behavioral disorders; Z83.438 Family history of other disorder of lipoprotein metabolism and other lipidemia
CPT/HCPCS: 36415; 71045; 76770; 80048; 80053; 81001; 83605; 83735; 83880; 84484; 85025; 85610; 85730; 93005; 93306; 94640; 94760; 96374; 99285

== ENCOUNTER 2021-07-28 08:00 | Emergency (ER) | payer OTHER ==
[2021-07-28 08:09] VITALS: TEMP 99.1
[2021-07-28] MEDS ORDERED: CEFEPIME 1 GM VIAL IM STA (08:41)
[2021-07-28] MEDS ORDERED: BACITRACIN ZINC 500 UNIT/GM OINT 28.4 GM TUBE TOPICAL ONE (09:16)
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
[2021-07-28] MEDS ORDERED: DIPH,PERTUS(ACELL)TETVAC-LF 0.5 ML VIAL IM ONE (09:19)
[2021-07-28 10:24] VITALS: BP 132/74; PULSE 75; RESP 16
== END 2021-07-28 10:24 | disposition home or self-care (01) ==
LOC: EC 08:00
DX: T25.221A Burn of second degree of right foot, initial encounter (principal); J44.9 Chronic obstructive pulmonary disease, unspecified; E78.5 Hyperlipidemia, unspecified; Z23 Encounter for immunization; I10 Essential (primary) hypertension; Z88.0 Allergy status to penicillin
CPT/HCPCS: 90715; 99283; 96372; 90471; J0692

== ENCOUNTER → 2022-02-10 | Outpatient (CLI) | payer OTHER ==
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
== END | disposition home or self-care (01) ==
LOC: RADUSWWP 07:01
PROVIDERS: ATTEND Internal Medicine
DX: I10 Essential (primary) hypertension (principal)
CPT/HCPCS: 93975

== ENCOUNTER → 2024-08-29 | Outpatient (CLI) | payer OTHER ==
[2024-08-29 20:12] LABS: HCT 29.7 % (39.6-50.0); HGB 9.4 g/dL (13.0-17.0); MCH 27.3 pg (27.0-32.0); MCHC 31.6 g/dL (32.0-37.0); MCV 86.3 FL (80.0-97.0); Mean Platelet Volume 10.4 FL (9.5-12.2); NRBC Per 100 WBC 0 X 10*3/uL (0.00-0.01); Platelet Count 148 X 10*3/uL (140-440); RBC 3.44 X 10*6/uL (4.40-5.60); RDW 14.4 % (11.5-14.5); WBC 4.31 X 10*3/uL (4.50-10.00)
[2024-08-29 22:02] LABS: % Iron Saturation 11.05 (15.00-50.00); BUN/Creat Ratio 15.51 Ratio (12.00-20.00); Blood Urea Nitrogen 88.4 mg/dL (9.0-27.0); Glucose 103 mg/dL (70-110); Iron 38 UG/DL (65-175); Phosphorus 6.2 mg/dL (2.4-5.1); Total Iron Binding Capacity 344 UG/DL (228-460); Uric Acid 10.6 mg/dL (3.7-8.7)
[2024-08-29 22:03] LABS: ALT 24 U/L (10-49); AST 19 U/L (14-35); Alkaline Phosphatase 89 U/L (41-126); Calcium 8.4 mg/dL (8.7-10.3); Carbon Dioxide 19.1 mmol/L (21.6-31.8); Chloride 108 mmol/L (96-109); Globulin 2.1 g/dL (1.6-3.3); Potassium 4.7 mmol/L (3.5-5.5); Sodium 143 mmol/L (135-145); Total Bilirubin 0.3 mg/dL (0.3-1.2); Total Protein 6.1 g/dL (6.2-8.2)
[2024-08-29 23:56] LABS: Urine Creatinine 75.1 mg/dL (39.0-259.0)
== END | disposition home or self-care (01) ==
LOC: LABWHC1 16:01
PROVIDERS: ATTEND Internal Medicine Nephrology
DX: N18.4 Chronic kidney disease, stage 4 (severe) (principal); D63.1 Anemia in chronic kidney disease; E55.9 Vitamin D deficiency, unspecified; N25.81 Secondary hyperparathyroidism of renal origin; M10.9 Gout, unspecified; R80.9 Proteinuria, unspecified
CPT/HCPCS: 36415; 80053; 82043; 82306; 82570; 82728; 83540; 83550; 83735; 83970; 84100; 84550; 85027

== ENCOUNTER 2024-09-22 09:51 | Inpatient (IN) | payer OTHER ==
[2024-09-22] MEDS: IPRATROPIUM-ALBUTEROL 3 ML NEB INHALATION STA (10:49)
--- NOTE | 2024-09-22 10:56 | XR ---
EXAMINATION TYPE: XR chest 2V DATE OF EXAM: 09/22/2024 10:45 AM COMPARISON: Chest radiographs from 10/22/2019 TECHNIQUE: XR chest 2V Frontal and lateral views of the chest. CLINICAL INDICATION:Male, 59 years old with history of difficulty breathing; FINDINGS: Lungs/Pleura: No pleural effusion or pneumothorax. Right basilar patchy airspace opacities. Pulmonary vascularity: Unremarkable. Heart/mediastinum: Cardiomediastinal silhouette is unremarkable. Musculoskeletal: Multiple level degenerative disc disease changes seen throughout the spine. IMPRESSION: Right basilar patchy airspace opacities concerning for pneumonia. [facility], , 09/22/2024 10:54 AM
[2024-09-22] MEDS: methylPREDNISolone SOD SUCCI 125 MG/2 ML VIAL IV STA (11:05)
[2024-09-22] MEDS: MAGNESIUM SULFATE-D5W PMX 1 GM in DEXTROSE/WATER 1 100ML.BAG IVPB STA (11:08)
[2024-09-22] MEDS: SODIUM CHLORIDE 0.9% 1,000 ML IV ONE (11:08)
[2024-09-22 11:14] LABS: Basophils # (A) 0.02 10*3/uL (0.00-0.10); Basophils % (A) 0.4 %; Eosinophils # (A) 0.08 10*3/uL (0.04-0.35); Eosinophils % (A) 1.7 %; HCT 28.5 % (39.6-50.0); HGB 9.4 g/dL (13.0-17.0); Lymphocytes # (A) 0.65 10*3/uL (0.90-5.00); Lymphocytes % (A) 14.1 %; MCH 28.2 pg (27.0-32.0); MCHC 33.0 g/dL (32.0-37.0); MCV 85.6 fL (80.0-97.0); Monocytes # (A) 0.44 10*3/uL (0.20-1.00); Monocytes % (A) 9.5 %; Neutrophils # (A) 3.41 10*3/uL (1.80-7.70); Neutrophils % (A) 74.1 %; Platelet Count 140 10*3/uL (140-440); RBC 3.33 10*6/uL (4.40-5.60); RDW 13.5 % (11.5-14.5); WBC 4.61 10*3/uL (4.50-10.00)
[2024-09-22 11:28] LABS: INR 1.0 (<1.2); Partial Thromboplastin Time 25.7 sec (22.0-30.0); Prothrombin Time 11.5 sec (10.0-12.5)
[2024-09-22 11:29] LABS: ALT 15 U/L (4-49); AST 17 U/L (17-59); African American GFR (CKD) 12 (>60 ml/min/1.73 sqM); Albumin 3.7 g/dL (3.5-5.0); Alkaline Phosphatase 76 U/L (38-126); Anion Gap 15 mmol/L; Blood Urea Nitrogen 87 mg/dL (9-20); Calcium 8.6 mg/dL (8.4-10.2); Carbon Dioxide 14 mmol/L (22-30); Chloride 112 mmol/L (98-107); Glucose 133 mg/dL (74-99); Magnesium 1.9 mg/dL (1.6-2.3); Non-African American GFR(CKD) 11 (>60 ml/min/1.73 sqM); Potassium 5.1 mmol/L (3.5-5.1); Sodium 141 mmol/L (137-145); Total Protein 6.3 g/dL (6.3-8.2)
[2024-09-22 11:41] LABS: RSV Not Detected (Not Detectd)
[2024-09-22] MEDS ORDERED: PNEUMONIA PROTOCOL UTILIZED 1 EACH MISC PO PRN (13:29)
[2024-09-22] MEDS ORDERED: IPRATROPIUM-ALBUTEROL 3 ML NEB INHALATION PRN (13:32)
--- NOTE | 2024-09-22 14:25 | US ---
EXAMINATION TYPE: US renals and bladder DATE OF EXAM: 09/22/2024 COMPARISON: NONE CLINICAL INDICATION: Male, 59 years old with history of ckd; ckd TECHNIQUE: Grayscale imaging of the bilateral kidneys and urinary bladder: FINDINGS: EXAM MEASUREMENTS: Right Kidney: 10 x 4.7 x 4.7 cm Left Kidney: 11 x 4.4 x 4.6 cm Incidental finding splenomegaly 17.1 cm Right Kidney: Dilated renal pelvis 2.7 x 1.5 x 1.6 cm. Increased renal parenchymal echogenicity. Left Kidney: No hydronephrosis or masses seen. Increased parenchymal echogenicity. Bladder: Anechoic Bilateral Jets seen: no There is no evidence for hydronephrosis at this point in time. No nephrolithiasis is seen. No song s are identified. The urinary bladder is anechoic. IMPRESSION: 1. No evidence of acute obstructive uropathy/hydronephrosis. 2. Increased bilateral renal echogenicity suggestive of underlying medical renal disease. [facility], , 09/22/2024 2:23 PM
[2024-09-22] MEDS: SODIUM CHLORIDE 0.9% 1,000 ML IV SCH (14:26)
--- NOTE | 2024-09-22 14:37 | ED ---
General Adult HPI - General Chief complaint: Shortness of Breath Stated complaint: Urogenital Time Seen by Provider: 09/22/24 10:25 Source: patient, RN notes reviewed, old records reviewed Mode of arrival: ambulatory Limitations: no limitations - History of Present Illness Initial comments: 59-year-old male who presents emergency department complaining of shortness of breath. States has been ongoing for a few days. Patient states he thinks he may have seen some darker blood in his sputum a few days ago but nothing persistent. Is having productive cough of yellow sputum. He has a history of a partial right lung resection. States he has also been outpatient monitored for CKD but unknown when he follows up with his renal specialist asked. Has a history of diabetes, hypertension, hyperlipidemia as well as COPD. Presents for further evaluation at this time. - Related Data Home Medications Medication Instructions Recorded Confirmed Carboxymethylcellulose Sodium 1 drop BOTH EYES DAILY PRN 12/08/17 10/22/19 [Refresh Tears] Albuterol Inhaler [Ventolin Hfa 2 puff INHALATION RT-QID PRN 10/22/19 10/22/19 Inhaler] Atorvastatin [Lipitor] 10 mg PO HS 10/22/19 10/22/19 Fluticasone/Umeclidin/Vilanter 1 puff INHALATION RT-DAILY 10/22/19 10/22/19 [Trelegy Ellipta 100-62.5-25] LORazepam [Ativan] 1 mg PO DAILY PRN 10/22/19 10/22/19 Ubidecarenone [Co Q-10] 100 mg PO DAILY 10/22/19 10/22/19 Vitamin B Complex 1 cap PO DAILY 10/22/19 10/22/19 Previous Rx's Medication Instructions Recorded Aspirin 81 mg PO DAILY 30 Days #30 chewable 10/25/19 Budesonide-Formot 160-4.5 Mcg 2 puff INHALATION RT-BID 30 Days 10/25/19 [Symbicort 160-4.5 Mcg Inhaler] #1 puff Citalopram Hydrobromide [CeleXA] 10 mg PO DAILY 30 Days #30 tab 10/25/19 Furosemide [Lasix] 40 mg PO BID 30 Days #60 tablet 10/25/19 Insulin Glargine,Hum.rec.anlog 25 unit SQ DAILY #0 10/25/19 [Basaglar Kwikpen U-100] amLODIPine [Norvasc] 10 mg PO DAILY 30 Days #30 tab 10/25/19 carvediloL [Coreg*] 25 mg PO AC-BID 30 Days #60 tab 10/25/19 lisinopriL [Zestril] 40 mg PO DAILY 30 Days #30 tab 10/25/19 Cephalexin [Keflex] 500 mg PO Q6HR #28 cap 07/28/21 Sulfamethox-Tmp 800-160Mg [Bactrim 1 each PO Q12HR #14 tab 07/28/21 Ds] Allergies Allergy/AdvReac Type Severity Reaction Status Date / Time amoxicillin Allergy Rash/Hives Verified 09/22/24 10:00 Review of Systems ROS Statement: Those systems with pertinent positive or pertinent negative responses have been documented in the HPI. Review of Systems: CONST: Denies fever EYES: Denies blurry vision ENT: Denies nasal congestion C/V: Denies Chest pain RESP: Endorses cough, congestion GI: Denies abdominal pain : Denies dysuria SKIN: Denies rash. MSK: Denies joint pain. NEURO: Denies headache ROS Other: All systems not noted in ROS Statement are negative. 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 RUL lung tumor, non-cancerous History of Any Multi-Drug Resistant Organisms: None Reported Past Surgical History: Hernia Repair, Tonsillectomy Additional Past Surgical History / Comment(s): Bilateral cataracts removed with lens implants, bilateral eye injections/unsuccessful laser for retinal bleeds, L inguinal hernia repair, R lung biopsy/mass removal, colonoscopy/benign polypectomies. Past Anesthesia/Blood Transfusion Reactions: No Reported Reaction Past Psychological History: Anxiety, Depression Smoking Status: Never smoker Past Alcohol Use History: Daily Past Drug Use History: None Reported - Past Family History Father Family Medical History: Diabetes Mellitus, Hypertension Additional Family Medical History / Comment(s): Father has anxiety and it and depression run on his side of the family. He is 83yrs old. Mother Family Medical History: Hyperlipidemia Additional Family Medical History / Comment(s): Mother has anxiety. She is 76 yrs old. General Exam - General Exam Comments Initial Comments: General: Appears in no acute distress. HEAD: Normal with no signs of head trauma. EYES: PERRLA, EOMI, conjunctiva normal, no discharge. ENT: Hearing grossly intact, normal oropharynx. RESPIRATORY: Mild bilateral end expiratory wheezing. No hypoxia. No increased work of breathing. C/V: Regular rate and rhythm. S1 and S2 auscultated, no edema, peripheral pulses 2+ and intact throughout ABD: Abd is soft, nontender, nondistended EXT: Normal range of motion, no obvious deformity SKIN: No rashes or lesions observed on exposed skin. NEURO: Alert and oriented x 4. Limitations: no limitations Course Vital Signs 09/22/24 09/22/24 09/22/24 10:01 10:49 11:04 Temperature 98.4 F Pulse Rate 53 L 55 L 55 L Respiratory 20 16 16 Rate Blood Pressure 119/67 O2 Sat by Pulse 99 Oximetry 09/22/24 14:28 Temperature Pulse Rate 63 Respiratory 16 Rate Blood Pressure 152/75 O2 Sat by Pulse 97 Oximetry Medical Decision Making - Medical Decision Making Was pt. sent in by a medical professional or institution (Dr. PA, [employer], urgent care, hospital, or usp...) When possible be specific @ -No Did you speak to anyone other than the patient for history (EMS, parent, family, police, friend...)? What history was obtained from this source @ -No Did you review nursing and triage notes (agree or disagree)? Why? @ -I reviewed and agree with nursing and triage notes Were old charts reviewed (outside hosp., previous admission, EMS record, old EKG, old radiological studies, urgent care reports/EKG's, usp records)? Report findings @ -Reviewed most recent laboratory studies, including creatinine from August 2024 which was 5.7. It is improved at this time to 5.44. Differential Diagnosis (chest pain, altered mental status, abdominal pain women, abdominal pain men, vaginal bleeding, weakness, fever, dyspnea, syncope, headache, dizziness, GI bleed, back pain, seizure, CVA, palpatations, mental health, musculoskeletal)? @ -Pneumonia, COVID, flu, RSV. This list is not all inclusive. EKG interpreted by me (3pts min.). @ -As above X-rays interpreted by me (1pt min.). @ -Chest x-ray reveals findings concerning for right sided pneumonia. CT interpreted by me (1pt min.). @ -None done U/S interpreted by me (1pt. min.). @ -Renal ultrasound showed increased bilateral renal echogenicity suggestive of underlying medical renal disease. What testing was considered but not performed or refused? (CT, X-rays, U/S, labs)? Why? @ -None What meds were considered but not given or refused? Why? @ -None Did you discuss the management of the patient with other professionals (professionals i.e. , PA, [employer], lab, RT, psych nurse, rn social services, tour bus driver, teacher, community service officer, telephonic case manager)? Give summary @ -Discussed with Dr. Vizcaino who accepted the admission. He states he believes that the patient has been following with nephrology and requested nephrology consult but does not believe patient needs to be inpatient admission. Can be observation at this time. Was smoking cessation discussed for >3mins.? @ -No Was critical care preformed (if so, how long)? @ -No Were there social determinants of health that impacted care today? How? (Homelessness, low income, unemployed, alcoholism, drug addiction, transportation, low edu. Level, literacy, decrease access to med. care, custodial, r ehab)? @ -No Was there de-escalation of care discussed even if they declined (Discuss DNR or withdrawal of care, Hospice)? DNR status @ -No What co-morbidities impacted this encounter? (DM, HTN, Smoking, COPD, CAD, Cancer, CVA, ARF, Chemo, Hep., AIDS, mental health diagnosis, sleep apnea, morbid obesity)? @ -CKD, COPD Was patient admitted / discharged? Hospital course, mention meds given and [place], prescriptions, significant lab abnormalities, going to OR and other pertinent info. @ -Presents with URI symptoms. We will obtain general labs, chest x-ray. Patient be symptomatically treated with IV fluids, IV Solu-Medrol, breathing treatment. He was in agreement this plan. Vitals within acceptable limits. EKG unremarkable. Chest x-ray shows right- sided pneumonia. Laboratory studies remarkable for chronic anemia with a hemoglobin of 9.4 which is stable, as well as elevated BUN and creatinine of 87 and 5.44. This is somewhat improved from last month when he had labs drawn. Remainder the labs unremarkable. I discussed results with the patient. The renal function is the primary concern, and he states he has been following with the nephrology. His PCP believes that is the case as well. However we will admit the patient for treatment of pneumonia on IV antibiotics and nephrology evaluate him. Ultrasound of the renals and bladder was obtained and showed no obvious acute process. Still waiting on urinalysis. Patient does state he has had decreased urination that has been more progressive and chronic. No acute change. Patient initiated on azithromycin and Rocephin we will continue with IV steroids, as well as breathing treatments. I spoke with the admitting provider, Dr. Vizcaino who accepted the admission. Undiagnosed new problem with uncertain prognosis? @ -No Drug Therapy requiring intensive monitoring for toxicity (Heparin, Nitro, Insulin, Cardizem)? @ -No Were any procedures done? @ -No Diagnosis/symptom? @ -COPD, pneumonia, CKD Acute, or Chronic, or Acute on Chronic? @ -Acute Uncomplicated (without systemic symptoms) or Complicated (systemic symptoms)? @ -Complicated Side effects of treatment? @ -No Exacerbation, Progression, or Severe Exacerbation? @ -No Poses a threat to life or bodily function? How? (Chest pain, USA, VT, pneumonia, PE, COPD, DKA, ARF, appy, cholecystitis, CVA, Diverticulitis, Homicidal, Suicidal, threat to staff... and all critical care pts) @ -Potentially, yes - Lab Data Result diagrams: 09/22/24 11:04 09/22/24 11:04 Lab Results 09/22/24 09/22/24 09/22/24 Range/Units 10:31 11:04 11:04 WBC 4.61 (4.50-10.00) 10*3/uL RBC 3.33 L (4.40-5.60) 10*6/uL Hgb 9.4 L (13.0-17.0) g/dL Hct 28.5 L (39.6-50.0) % MCV 85.6 (80.0-97.0) fL MCH 28.2 (27.0-32.0) pg MCHC 33.0 (32.0-37.0) g/dL Plt Count 140 (140-440) 10*3/uL MPV 9.9 (9.5-12.2) fL Immature Gran % (Auto) 0.2 % Neutrophils % 74.1 % Lymphocytes % 14.1 % Monocytes % 9.5 % Eosinophils % 1.7 % Basophils % 0.4 % Immature Gran # 0.01 (0.00-0.04) 10*3/uL Neutrophils # 3.41 (1.80-7.70) 10*3/uL Lymphocytes # 0.65 L (0.90-5.00) 10*3/uL Monocytes # 0.44 (0.20-1.00) 10*3/uL Eosinophils # 0.08 (0.04-0.35) 10*3/uL Basophils # 0.02 (0.00-0.10) 10*3/uL PT 11.5 (10.0-12.5) sec INR 1.0 (<1.2) APTT 25.7 (22.0-30.0) sec Sodium (137-145) mmol/L Potassium (3.5-5.1) mmol/L Chloride (98-107) mmol/L Carbon Dioxide (22-30) mmol/L Anion Gap mmol/L BUN (9-20) mg/dL Creatinine (0.66-1.25) mg/dL Est GFR (CKD-EPI)AfAm (>60 ml/min/1.73 sqM) Est GFR (CKD-EPI)NonAf (>60 ml/min/1.73 sqM) Glucose (74-99) mg/dL Plasma Lactic Acid Earl (0.7-2.0) mmol/L Calcium (8.4-10.2) mg/dL Magnesium (1.6-2.3) mg/dL Total Bilirubin (0.2-1.3) mg/dL AST (17-59) U/L ALT (4-49) U/L Alkaline Phosphatase (38-126) U/L Total Protein (6.3-8.2) g/dL Albumin (3.5-5.0) g/dL Influenza Type A (PCR) Not Detected (Not Detectd) Influenza Type B (PCR) Not Detected (Not Detectd) RSV (PCR) Not Detected (Not Detectd) SARS-CoV-2 (PCR) Not Detected (Not Detectd) 09/22/24 09/22/24 Range/Units 11:04 11:04 WBC (4.50-10.00) 10*3/uL RBC (4.40-5.60) 10*6/uL Hgb (13.0-17.0) g/dL Hct (39.6-50.0) % MCV (80.0-97.0) fL MCH (27.0-32.0) pg MCHC (32.0-37.0) g/dL Plt Count (140-440) 10*3/uL MPV (9.5-12.2) fL Immature Gran % (Auto) % Neutrophils % % Lymphocytes % % Monocytes % % Eosinophils % % Basophils % % Immature Gran # (0.00-0.04) 10*3/uL Neutrophils # (1.80-7.70) 10*3/uL Lymphocytes # (0.90-5.00) 10*3/uL Monocytes # (0.20-1.00) 10*3/uL Eosinophils # (0.04-0.35) 10*3/uL Basophils # (0.00-0.10) 10*3/uL PT (10.0-12.5) sec INR (<1.2) APTT (22.0-30.0) sec Sodium 141 (137-145) mmol/L Potassium 5.1 (3.5-5.1) mmol/L Chloride 112 H (98-107) mmol/L Carbon Dioxide 14 L (22-30) mmol/L Anion Gap 15 mmol/L BUN 87 H (9-20) mg/dL Creatinine 5.44 H (0.66-1.25) mg/dL Est GFR (CKD-EPI)AfAm 12 (>60 ml/min/1.73 sqM) Est GFR (CKD-EPI)NonAf 11 (>60 ml/min/1.73 sqM) Glucose 133 H (74-99) mg/dL Plasma Lactic Acid Earl 0.5 L (0.7-2.0) mmol/L Calcium 8.6 (8.4-10.2) mg/dL Magnesium 1.9 (1.6-2.3) mg/dL Total Bilirubin 0.5 (0.2-1.3) mg/dL AST 17 (17-59) U/L ALT 15 (4-49) U/L Alkaline Phosphatase 76 (38-126) U/L Total Protein 6.3 (6.3-8.2) g/dL Albumin 3.7 (3.5-5.0) g/dL Influenza Type A (PCR) (Not Detectd) Influenza Type B (PCR) (Not Detectd) RSV (PCR) (Not Detectd) SARS-CoV-2 (PCR) (Not Detectd) - EKG Data -: EKG Interpreted by Me EKG Comments: 12-lead Electrocardiogram Interpretation Note EKG was reviewed and interpreted by myself. 12-lead ECG performed at 1113 is interpreted by me as revealing normal sinus rhythm at a rate of 62 beats per minute. Adrian is normal. DE interval is 204 ms, QRS durations 108 ms, QTc is 475 ms.. There were no ST or T wave abnormalities to suggest myocardial ischemia or injury. R wave progression across the precordium was satisfactory. By my interpretation this EKG is non-diagnostic for acute ischemia. Compared with EKG from October 2019 with no significant acute change. Disposition Clinical Impression: COPD (chronic obstructive pulmonary disease), Pneumonia, CKD (chronic kidney disease) Disposition: ADMITTED IP TO THIS HOSP Condition: Stable Referrals: Kike Vizcaino MD [Primary Care Provider] - 1-2 days Time of Disposition: 13:29
[2024-09-22] MEDS: IPRATROPIUM-ALBUTEROL 3 ML NEB INHALATION PRN (15:12)
[2024-09-22] MEDS: IPRATROPIUM-ALBUTEROL 3 ML NEB INHALATION SCH (15:26)
[2024-09-22] MEDS: AZITHROMYCIN 500 MG in SODIUM CHLORIDE 0.9% 250 ML IVPB STA (15:32)
[2024-09-22] MEDS: methylPREDNISolone SOD SUCCI 40 MG/ML 1 ML VIAL IV SCH (17:13)
[2024-09-22 18:53] LABS: Bacteria,Urine Rare /hpf; Bilirubin,Urine Negative (Negative); Blood,Urine Negative (Negative); Color,Urine Colorless; Glucose,Urine (UA) Negative (Negative); Ketones,Urine Negative (Negative); Leukocyte Esterase,Urine Negative (Negative); Mucus,Urine Rare /hpf; Nitrite,Urine Negative (Negative); PH, Urine 5.5 (5.0-8.0); Protein,Urine 2+ (Negative); Specific Gravity,Urine 1.010 (1.001-1.035); Squamous Epithelial Cell,Urine <1 /hpf (0-4); Urobilinogen,Urine <2.0 mg/dL (<2.0); WBC,Urine 1 /hpf (0-5)
[2024-09-22] MEDS ORDERED: ALBUTEROL HFA INHALER INHALATION PRN (19:30)
[2024-09-22] MEDS: SODIUM BICARBONATE TAB 650 MG TAB PO SCH (21:32)
[2024-09-22] MEDS: ASPIRIN 81 MG PO SCH (21:32)
[2024-09-22] MEDS: MONTELUKAST 10 MG TAB PO SCH (21:33)
[2024-09-22] MEDS: HYDROcodone/APAP 7.5-325MG 1 EACH TAB PO SCH (21:33)
[2024-09-22] MEDS: ATORVASTATIN 40 MG TAB PO SCH (21:33)
[2024-09-22] MEDS: NIFEdipine XL 30 MG TAB.ER.24 PO SCH (22:01)
[2024-09-22] MEDS: MELATONIN 5 MG TABLET PO SCH (22:16)
[2024-09-23] MEDS: FUROSEMIDE 40 MG TAB PO SCH (08:21)
[2024-09-23] MEDS: FOLIC ACID-VIT B COMPLEX-VIT C 1 CAP PO SCH (08:23)
--- NOTE | 2024-09-23 08:43 | XR ---
EXAMINATION TYPE: XR chest 2V DATE OF EXAM: 09/23/2024 8:35 AM COMPARISON: 09/22/2024 CLINICAL INDICATION: Male, 59 years old with history of pneumonia, TECHNIQUE: XR chest 2V view(s) obtained. FINDINGS: The heart size is normal. The pulmonary vasculature is normal. Mild right lower lobe infiltrates present. Correlate subsegmental atelectasis or pneumonia.. IMPRESSION: 1. Mild developing infiltrate right base. Correlate for subsegmental atelectasis or pneumonia. Contin ued follow-up recommended [facility], Workstation: [facility], 09/23/2024 8:40 AM
[2024-09-23] MEDS: AZITHROMYCIN 500 MG TAB PO SCH (08:46)
[2024-09-23] MEDS: DEXTROSE 5% IN WATER 1,000 ML with SODIUM BICARB (1 MEQ/ML) 150 ML IV SCH (10:20)
--- NOTE | 2024-09-23 11:58 | P.NPCON ---
History of Present Illness - History of Present Illness Patient is a 59 year-old male was admitted to floor yesterday complained of SOB and coughing, noticed blood in his sputum, no fever. Patient has PMH of COPD, Hyerlipidemia, CHF, CKD stage V with baseline creatinine around 5 mg/dL. Patient Creatinine is stable 5.44 He reports baseline creatinine values 5.7 in the outpatient clinic in (08/29/24). Today he has no acute complains. He denies SOB, Chest pain, abdominal pain, No diarrhea. reports coughing dark yellow sputum He is on IV antibiotics, Furosemide 40 mg once daily for CHF. Patient wants to be discharged and talked about leaving AMA. 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 RUL lung tumor, non-cancerous History of Any Multi-Drug Resistant Organisms: None Reported Past Surgical History: Hernia Repair, Tonsillectomy Additional Past Surgical History / Comment(s): Bilateral cataracts removed with lens implants, bilateral eye injections/unsuccessful laser for retinal bleeds, L inguinal hernia repair, R lung biopsy/mass removal, colonoscopy/benign polypectomies. Past Anesthesia/Blood Transfusion Reactions: No Reported Reaction Additional Past Anesthesia/Blood Transfusion Reaction / Comment(s): no history of blood transfusion Past Psychological History: Anxiety, Depression Smoking Status: Never smoker Past Alcohol Use History: None Reported Additional Past Alcohol Use History / Comment(s): last drink of alcohol one year ago Past Drug Use History: None Reported - Past Family History Father Family Medical History: Diabetes Mellitus, Hypertension Additional Family Medical History / Comment(s): Father has anxiety and it and depression run on his side of the family. He is 83yrs old. Mother Family Medical History: Hyperlipidemia Additional Family Medical History / Comment(s): Mother has anxiety. Medications and Allergies Home Medications Medication Instructions Recorded Confirmed Type Albuterol Inhaler [Ventolin Hfa 2 puff INHALATION RT-QID PRN 10/22/19 09/22/24 History Inhaler] Aspirin EC [Ecotrin Low Dose] 81 mg PO BID 09/22/24 09/22/24 History Atorvastatin [Lipitor] 40 mg PO HS 09/22/24 09/22/24 History Beclomethasone Dipropionate [Qvar 2 puff INHALATION RT-BID 09/22/24 09/22/24 History 40 mcg Redihaler] Fluticasone Propionate 2 puff INHALATION RT-BID 09/22/24 09/22/24 History [Fluticasone Propionate Hfa 220 MCG (Inhaler)] Furosemide [Lasix] 40 mg PO DAILY 09/22/24 09/22/24 History HYDROcodone/APAP 7.5-325MG [[place] 1 tab PO BID 09/22/24 09/22/24 History 7.5-325] Montelukast [Singulair] 10 mg PO HS 09/22/24 09/22/24 History NIFEdipine XL [Procardia Xl] 30 mg PO BID 09/22/24 09/22/24 History Sodium Bicarbonate Tab 650 mg PO BID 09/22/24 09/22/24 History Vitamin B-6/Folic Acid/Vitamin B-12 1 tab PO DAILY 09/22/24 09/22/24 History busPIRone HCL 15 mg PO TID PRN 09/22/24 09/22/24 History carvediloL [Coreg] 25 mg PO BID 09/22/24 09/22/24 History hydrALAZINE HCL [Apresoline] 50 mg PO BID 09/22/24 09/22/24 History Allergies Allergy/AdvReac Type Severity Reaction Status Date / Time amoxicillin Allergy Rash/Hives Verified 09/22/24 19:21 Physical Exam Vitals: Vital Signs Temp Pulse Pulse Resp BP BP Pulse Ox 09/23/24 09:17 68 09/23/24 09:07 68 09/23/24 07:20 97.9 F 68 16 153/68 97 09/23/24 00:40 98.6 F 76 17 140/67 99 09/22/24 21:36 84 167/72 09/22/24 20:30 64 09/22/24 20:19 60 09/22/24 18:55 98.6 F 84 16 117/57 100 09/22/24 16:00 98.4 F 64 17 164/72 97 09/22/24 15:38 97.6 F 61 18 156/63 98 09/22/24 15:23 61 18 09/22/24 15:14 62 18 95 09/22/24 14:28 63 16 152/75 97 09/22/24 11:04 55 L 16 09/22/24 10:49 55 L 16 Intake and Output 09/22/24 09/23/24 09/23/24 22:59 06:59 14:59 Intake Total 680 Output Total 350 Balance 330 Intake: Oral 680 Output: Urine 350 Other: Voiding Method Toilet Toilet Urinal Urinal # Voids 1 Weight 72.575 kg Exam: General: Patient appears well, no acute distress Heart: S1 and S2, no murmurs heard Lungs: Clear to auscultation bilaterally. MSK: NO LE edema Abdomen: soft, no point tenderness SELLING UNDERWRITER intact, no asterixis Results - Lab Results Most recent lab results Calcium 8.6 mg/dL (8.4-10.2) 09/22/24 11:04 Magnesium 1.9 mg/dL (1.6-2.3) 09/22/24 11:04 09/22/24 11:04 09/22/24 11:04 Assessment and Plan Plan: 1. CKD Stage V 2/2 diabetic kidney disease, with serum Creatinine at baseline. No uremic symptoms. 2. History of CHF: on Lasix 40 mg once daily 3. Anion gap metabolic acidosis 2/2 CKD. No diarrhea reported, maintain on oral sodium bicarb 4. Pneumonia: on azithromax 500mg, and IV ceftriaxone 50 5. Type 2 DM Plan: Hold Furosemide as no evidance of volume overload Add Sodium Bicarb Drip Increase Bicarb tablets to 3/day when discharged antibiotics as per primary service. Patient is seen and examined. Agree with resident's findings, assessment and plan.
[2024-09-23 17:42] VITALS: BMI 26.6
[2024-09-24 07:57] VITALS: RESP 18
[2024-09-24 11:39] LABS: African American GFR (CKD) 15 (>60 ml/min/1.73 sqM); Anion Gap 14 mmol/L; Blood Urea Nitrogen 93 mg/dL (9-20); Calcium 8.4 mg/dL (8.4-10.2); Carbon Dioxide 18 mmol/L (22-30); Chloride 103 mmol/L (98-107); Glucose 349 mg/dL (74-99); Non-African American GFR(CKD) 13 (>60 ml/min/1.73 sqM); Potassium 5.2 mmol/L (3.5-5.1); Sodium 135 mmol/L (137-145)
--- NOTE | 2024-09-24 12:07 | P.PN ---
Subjective CKD stage V with baseline creatinine around 5 mg/dL. Patient is seen at bedside today. He denies SOB, Chest pain, abdominal pain, No diarrhea He reports his cough has improved, No SOB, No abdominal pain. Objective - Vital Signs Vital signs: Vital Signs Temp 98.0 F 09/24/24 07:56 Pulse 74 09/24/24 09:35 Resp 18 09/24/24 07:56 BP 186/81 09/24/24 07:56 Pulse Ox 96 09/24/24 09:24 FiO2 Intake & Output 09/23/24 09/24/24 09/24/24 18:59 06:59 18:59 Weight 72.575 kg Other: Voiding Method Toilet Toilet Urinal Urinal # Voids 3 3 - Exam General: Patient appears well, no acute distress Heart: S1 and S2, no murmurs heard Lungs: Clear to auscultation bilaterally. MSK: NO LE edema Abdomen: soft, no point tenderness DISEASE CASE MANAGER RN intact, no asterixis - Labs CBC & Chem 7: 09/22/24 11:04 09/24/24 10:44 Labs: Microbiology - Last 24 Hours (Table) 09/22/24 11:00 Blood Culture Gram Stain - Preliminary Blood Assessment and Plan Plan: 1. CKD Stage V 2/2 diabetic kidney disease, with serum Creatinine at baseline. No uremic symptoms. 2. History of CHF: Lasix (on hold) 40 mg once daily 3. Anion gap metabolic acidosis 2/2 CKD. Improved, No diarrhea reported, maintain on oral sodium bicarb as outpatient. currently on bicarb drip 4. Pneumonia: on azithromax 500mg, and IV ceftriaxone 50 5. Type 2 DM Plan: Increase Bicarb tablets to 3/day when discharged antibiotics as per primary service. Ok to discharge from Nephrology standpoint Patient is seen and examined. Agree with resident's findings, assessment and plan.
[2024-09-24 14:34] VITALS: BP 177/80; TEMP 97.4
[2024-09-24 16:31] VITALS: PULSE 80
[2024-09-24] MEDS: SODIUM BICARBONATE TAB 650 MG TAB PO SCH (17:01)
[2024-09-24] MEDS ORDERED: CEPHALEXIN 500 MG CAP PO SCH (22:00)
[2024-09-25] MEDS ORDERED: methylPREDNISolone 4 MG TAB TAPER PO SCH (09:00)
--- NOTE | 2024-09-26 20:37 | HP ---
HISTORY AND PHYSICAL CHIEF COMPLAINT: Weakness, shortness of breath, and cough. HISTORY OF PRESENT ILLNESS: This gentleman has a longstanding history of renal failure, and he is getting closer and closer to dialysis. He developed cough and shortness of breath, and came to the emergency room, where it was thought that he may have a minimal right lower lobe infiltrate and he was admitted. REVIEW OF SYSTEMS: He denies any chest pain, hemoptysis, nausea, vomiting, etc. Past medical history, family history, personal and social histories are all otherwise unchanged from his recent admitting and discharge summaries. PHYSICAL EXAMINATION: VITAL SIGNS: Normal. HEAD, EARS, EYES, NOSE, MOUTH, AND THROAT: Normal. CHEST: Clear. There are no rales or rhonchi. CARDIAC: Sinus. ABDOMEN: Soft, nontender. EXTREMITIES: Normal. IMPRESSION: 1. Minimal right lower lobe pneumonitis. 2. Stage 5 chronic kidney disease. 3. History of hypertension. PLAN: 1. Bedrest. 2. IV fluids. 3. Nasal O2. 4. Updrafts. 5. Antibiotic. MMODL / IJN: [id number] /
--- NOTE | 2024-09-27 03:20 | DS ---
DISCHARGE SUMMARY CHIEF COMPLAINT: Cough, shortness of breath and weakness. HISTORY OF PRESENT ILLNESS AND PHYSICAL EXAMINATION: Details of this man's history and physical can be found in the initial workup. LABORATORY STUDIES: While he was in the hospital, he had laboratory studies, details of which can be found in the laboratory section of his chart. COURSE IN THE HOSPITAL: After admission, he was placed on bedrest, started on intravenous fluids and IV antibiotics. He had no problems with fever and chills, shortness of breath and was cleared for discharge by Nephrology. He will go home on a cephalosporin and will be seen in the office in several days. FINAL DIAGNOSES: 1. Right lower lobe pneumonitis. 2. Stage 5 CKD. OPERATIONS: None. CONSULTATION: Nephrology. MMODL / AVINASHN: [id number] /
--- NOTE | 2024-09-27 05:05 | PN ---
PROGRESS NOTE DATE OF SERVICE: 09/23/2024 CHIEF COMPLAINT: Right lower lobe pneumonitis. HISTORY OF PRESENT ILLNESS: This gentleman is doing well. He has had no shortness of breath or chest pain. He has been seen by Nephrology. PHYSICAL EXAMINATION: CHEST: Clear. CARDIAC: Normal. ABDOMEN: Soft, nontender. He is afebrile. IMPRESSION: 1. Right lower lobe pneumonitis. 2. Stage 5 chronic kidney disease. PLAN: Continue with his current inpatient program. He is doing very well. If he continues to do this well, he can probably go home tomorrow. MMODL / IJN: [id number] /
== END 2024-09-24 18:58 | disposition home or self-care (01) | DRG 139 ==
LOC: EC 09:51 → 4SSUR 13:29 → OBSVTOIN 13:30 → 4SSUR 14:51
PROVIDERS: ADMIT Family Medicine; ATTEND Family Medicine
DX: J18.9 Pneumonia, unspecified organism (principal); J44.0 Chronic obstructive pulmonary disease with (acute) lower respiratory infection; N18.5 Chronic kidney disease, stage 5; E11.22 Type 2 diabetes mellitus with diabetic chronic kidney disease; I13.2 Hypertensive heart and chronic kidney disease with heart failure and with stage 5 chronic kidney disease, or end stage renal disease; I50.9 Heart failure, unspecified; J98.4 Other disorders of lung; E87.20 Acidosis, unspecified; E78.5 Hyperlipidemia, unspecified; Z96.1 Presence of intraocular lens; Z90.2 Acquired absence of lung [part of]; Z79.899 Other long term (current) drug therapy; Z79.51 Long term (current) use of inhaled steroids; Z88.0 Allergy status to penicillin; Z83.3 Family history of diabetes mellitus
CPT/HCPCS: 36415; 71046; 76770; 80048; 80053; 81001; 83605; 83735; 85025; 85610; 85730; 87040; 87070; 87205; 87449; 87636; 93005; 94640; 94760; 96361; 96365; 96367; 96375; 99285

== ENCOUNTER → 2024-09-27 | Outpatient (CLI) | payer OTHER ==
[~2024-09-27] MED LIST: SODIUM CHLORIDE 0.9% 250 ML in EMPTY BAG 1 BAG IV PRN
[2024-09-27 13:22] VITALS: BP 147/66; PULSE 63; RESP 16; TEMP 97.6
[2024-09-27] MEDS: SODIUM CHLORIDE 0.9% 500 ML 500 ML in EMPTY BAG 1 BAG IV PRN (13:22)
== END ==
LOC: PROCWHC3 12:50
PROVIDERS: ATTEND Nurse Practitioner Family
DX: N18.5 Chronic kidney disease, stage 5 (principal); D63.1 Anemia in chronic kidney disease
CPT/HCPCS: 96365; Q0138